=== PATIENT | male | born 1945 | race Caucasian/White ===

== ENCOUNTER → 2018-08-03 | Outpatient (CLI) | payer MEDICARE ==
[2014-08-11 15:14] VITALS: BP 138/67
[~2018-08-03] MED LIST: CIPR500T94 PO; DICY20TA3 PO; MESA800T2 PO
--- NOTE | 2018-08-03 16:02 | RAD ---
EXAM: CHEST 2 VIEWS. HISTORY: Cough, shortness of breath. COMPARISON: None. FINDINGS: Frontal and lateral views of the chest are obtained. Linear opacities in the left base most likely indicate atelectasis. There is no pneumothorax or pleural effusion. The heart is mildly enlarged. The aorta is tortuous. IMPRESSION: 1. Left basilar atelectasis versus mild infiltrate. 2. Mild cardiomegaly. Electronically signed by: Sherly Flores MD (08/03/2018 3:59 PM) [facility]
== END | disposition home or self-care (01) ==
LOC: RAD 10:08
PROVIDERS: ATTEND Internal Medicine Pulmonary Disease
DX: I51.7 Cardiomegaly (principal); J98.11 Atelectasis
CPT/HCPCS: 71046

== ENCOUNTER 2018-09-11 08:20 | Outpatient (CLI) | payer MEDICARE ==
[2018-09-11] VITALS (13 sets, daily range): BP systolic 117–150; BP diastolic 61–80
[~2018-09-11] VITALS: Ht 172.7 cm; Wt 98.0 kg
[2018-09-11] MEDS ORDERED: MIDAZOLAM HCL/PF 2 MG/2 ML VIAL. ONE (08:50)
[2018-09-11] MEDS ORDERED: fentaNYL PF VIAL 100 MCG/2 ML VIAL ONE (08:50)
[2018-09-11] MEDS ORDERED: NITROGLYCERIN 200 MCG/2 ML SYRINGE FOR CATH/VASC LAB. ONE (08:51)
[2018-09-11] MEDS ORDERED: VERAPAMIL 5 MG/2 ML VIAL. ONE (08:51)
[2018-09-11] MEDS ORDERED: HEPARIN for IV BOLUS 10,000 UNIT/10 ML VIAL. ONE (08:51)
[2018-09-11] MEDS ORDERED: ZOLP10TA4 PO (08:53)
[2018-09-11] MEDS ORDERED: LISI10TA2 PO (08:53)
[2018-09-11] MEDS ORDERED: IODIXANOL 320 MG/ML 100 ML VIAL. ONE (08:55)
[2018-09-11] MEDS ORDERED: LIDOCAINE 1% PF 2 ML VIAL. ONE (08:55)
[2018-09-11 09:00] LABS: HEMOGLOBIN 15.5 g/dL (13.0-17.5); RED BLOOD COUNT 5.09 x10^6/uL (4.30-5.70); WHITE BLOOD COUNT 4.4 x10^3/uL (4.0-11.0)
[2018-09-11 09:12] LABS: CREATININE 1.2 mg/dL (0.7-1.3); GFR 59.2; POTASSIUM 4.7 mmol/L (3.5-5.1)
[2018-09-11 09:15] LABS: PROTHROMBIN TIME PATIENT 12.5 SEC (11.7-14.0)
[2018-09-11] MEDS ORDERED: IODIXANOL 320 MG/ML 100 ML VIAL. IART ONE (10:15)
[2018-09-11] MEDS ORDERED: HEPARIN for IV BOLUS 10,000 UNIT/10 ML VIAL. IART ONE (10:15)
[2018-09-11] MEDS ORDERED: NITROGLYCERIN 200 MCG/2 ML SYRINGE FOR CATH/VASC LAB. IART ONE (10:15)
[2018-09-11] MEDS ORDERED: fentaNYL PF VIAL 100 MCG/2 ML VIAL IV ONE (10:15)
[2018-09-11] MEDS ORDERED: LIDOCAINE 1% PF 2 ML VIAL. INJ ONE (10:15)
[2018-09-11] MEDS ORDERED: VERAPAMIL 5 MG/2 ML VIAL. IART ONE (10:15)
[2018-09-11] MEDS ORDERED: MIDAZOLAM HCL/PF 2 MG/2 ML VIAL. IV ONE (10:15)
[2018-09-11] MEDS ORDERED: IV NORMAL SALINE 250ML 250 ML IV ONE (10:15)
[2018-09-11] MEDS ORDERED: CONTRAST GIVEN. MC PRN (10:30)
[2018-09-11] MEDS ORDERED: IV 1/2 NORMAL SALINE 1,000 ML IV SCH (10:55)
--- NOTE | 2018-09-11 10:55 | PDOC ---
MODERATE SEDATION ASSESSMENT RISKS/ALTERNATIVES Risks/Alternatives Risks and alternatives of this type of sedation and procedure discussed with: RISK/ALTERNATIVES: Patient H & P ON CHART H & P H & P on chart and reviewed for co-morbid conditions and appropriate labs. H&P ON CHART: Yes STATUS PREG STATUS ASSESSED: N/A MEDS/ALLERGIES REVIEWED Meds/Allergies Reviewed Medications and Allergies including time and route of recently administered narcotics and sedatives. MEDS/ALLERGIES REVIEWED: Yes ASA RATING ASA RATING: II AIRWAY ASSESSMENT Airway Assessment Airway patency, oral function limitations, presence of caps, crowns, dentures, partials, and ability to extend neck assessed. AIRWAY ASSESSMENT: Yes MALLAMPATI SCORE MALLAMPATI SCORE: II PRE-SEDATION ASSESSMENT PRE-SEDATION ASSESSMENT: Yes SANDRA GARCIA MD Sep 11, 2018 10:55
[2018-09-11] MEDS ORDERED: 0.9 % SODIUM CHLORIDE 10 ML DISP.SYRIN. IV PRN (11:00)
[2018-09-11] MEDS ORDERED: NITROGLYCERIN SUBLINGUAL 0.4 MG BOTTLE OF 25. SL PRN (11:00)
--- NOTE | 2018-09-11 11:01 | CARD ---
MR#: [id number] Date of Study: 09/11/2018 Ordering Physician: SANDRA GARCIA Referring Physician: SANDRA GARCIA Tech: RT Wenceslao (R) APPROVED REPORT Technologist: Rashmi Vaughan RT (R) Nurse: MADHAVI DIXON RN Procedure(s) performed: Left heart catheterization, selective coronary angiography and left ventricul ography via right transradial approach Fluoro time: 9.4 minutes Dose: 99 Gycm2 Contrast: 111cc Moderate sedation: 42 minutes INDICATION The indication(s) include : Dyspnea on exertion and positive stress test. [facility] Clinical Frailty Scale [facility] Clinical Frailty Scale: Managing Well Heart Failure Heart Failure: No PROCEDURE NARRATIVE After explaining the risks, benefits and alternative options, informed consent was obtained from alexsander ent. Patient was brought to the cardiac Residential Support Worker and right wrist was prepped and draped in the usual fashion after confirming a positive modified Hilton's test. Arterial access was obtained in the [facility] radial artery and a 6 Welsh sheath was inserted. 6 Welsh JL 3.5 and 6 Welsh JR4 catheters were used to perform selective angiography of the left and right coronary arteries after initial attempts to engage these vessels using Alireza catheter were unsuccessful. 6 Welsh pigtail catheter was used to perform left ventriculography. Patient tolerated the procedure well. Hemostasis was achieved usi ng TR band. There were no immediate complications. The following findings were noted. FINDINGS 1. Hemodynamics: Left ventricular end-diastolic pressure of 5 mmHg. No pullback gradient across the aortic valve. 2. Left ventriculography: Normal left ventricle systolic function with ejection fraction estimated at 55-60%. No significant mitral regurgitation seen. 3. Coronary angiography: a. The left main coronary artery arose from the left sinus of Valsalva, gave rise to the left anteri or descending and left circumflex arteries and showed 30% ostial segment stenosis and 70-80% distal s egment stenosis. b. The left anterior descending artery showed patent stent in the proximal segment of the second case gonal branch. No significant stenoses were noted. c. The left circumflex artery showed 80% stenosis in the ostial segment and 70% stenosis in the prox imal segment of the first obtuse marginal branch. d. The right coronary artery was a dominant vessel arising from the right sinus of Valsalva that zaria wed 60% stenosis in the distal segment. The posterolateral branch showed 90% stenosis in the midsegme nt. The posterior descending artery showed 40% stenosis in the proximal segment. Conclusion 1. Severe three-vessel coronary artery disease including significant left main coronary artery steno sis as described above 2. Normal left ventricle systolic function with ejection fraction estimated at 55-60% Recommendations Cardiothoracic surgery team consultation for possible coronary artery bypass surgery Signed by : Sandra Garcia, Electronically Approved : 09/11/2018 11:00:59
--- NOTE | 2018-09-11 13:52 | CARD ---
MR#: [id number] Date of Study: 09/11/2018 Ordering Physician: SANDRA GARCIA, Referring Physician: SANDRA GARCIA Tech: Cat Henley RAE APPROVED REPORT EXAM: Two-dimensional and M-mode echocardiogram with Doppler and color Doppler. Other Information Quality : AverageHR: 62bpm Rhythm : NSRTechnically limited study due to body habitus. INDICATION CAD 2D DIMENSIONS RVDd3.7 (2.9-3.5cm)IVSd1.2 (0.7-1.1cm) Aortic Root(2D)3.9 (2.0-3.7cm)LVDd5.2 (3.9-5.9cm) LVOT Diameter2.2 (1.8-2.4cm)PWd1.0 (0.7-1.1cm) LVDs2.8 (2.5-4.0cm)FS (%) 46.8 % SV100.5 mlLVEF(%)77.9 (>50%) M-Mode DIMENSIONS Left Atrium(MM)5.08 (2.5-4.0cm)Aortic Root3.75 (2.2-3.7cm) Aortic Valve AoV Peak Oscar.197.4cm/sAoV VTI37.4cm AO Peak GR.15.6mmHgLVOT VTI 23.48cm AO Mean GR.8mmHgAVA (VTI)2.40cm2 AI P 1/2 Ufel081th Mitral Valve MV E Knlpotjz09.3cm/sMV DECEL RRXY330mb MV A Hxsgefkb134.5cm/sE/A Ratio0.6 MV A Roqqoapt368qg TDI Lateral E' P. V15.90cm/sMedial E' P. V8.04cm/s E/Lateral E'4.7E/Medial E'9.2 Tricuspid Valve TR P. Hvhqmihh754ev/sRAP TXCRJCRV7zyYz TR Peak Gr.00aoIjTQWR65yhBu LEFT VENTRICLE The left ventricle is normal size. There is mild concentric left ventricular hypertrophy. The left ve ntricular systolic function is low normal. EF 50-55% There is grossly normal wall motion. Technically limited images Transmitral Doppler flow pattern is abnormal. Tissue Doppler imaging reveals mild lef t ventricular diastolic dysfunction. RIGHT VENTRICLE The right ventricle is normal size. There is normal right ventricular wall thickness. The right ventr icular systolic function is normal. ATRIA The left atrium is moderately dilated. The right atrium is mildly dilated. The interatrial septum is intact with no evidence for an atrial septal defect or patent foramen ovale as noted on 2-D or Dopple r imaging. AORTIC VALVE Not well visualized. Doppler and Color Flow revealed moderate aortic regurgitation. There is no signi ficant aortic valvular stenosis. MITRAL VALVE The mitral valve is normal in structure and function. There is no evidence of mitral valve prolapse. There is no mitral valve stenosis. Doppler and Color-flow revealed trace mitral regurgitation. TRICUSPID VALVE The tricuspid valve is normal in structure and function. Doppler and Color Flow revealed trace tricus pid regurgitation. The PA pressure was estimated at 30 mmHg. There is no tricuspid valve prolapse or vegetation. PULMONIC VALVE The pulmonic valve is not well visualized. GREAT VESSELS The aortic root is mildly enlarged. The ascending aorta is normal in size. The IVC is normal in size and collapses >50% with inspiration. PERICARDIAL EFFUSION There is no evidence of significant pericardial effusion. Critical Notification Critical Value: No <Conclusion> There is grossly normal wall motion. Technically limited images Doppler and Color Flow revealed moderate aortic regurgitation. The left ventricular systolic function is low normal. EF 50-55% Signed by : Francisco Burger, Electronically Approved : 09/11/2018 13:51:57
--- NOTE | 2018-09-11 13:53 | NUR ---
Discharge Note: RENALDO HANLEY Discharge instructions and discharge home medications reviewed with Spouse and a copy given. All questions have been answered and understanding verbalized. The following instructions and handouts were given: Moderate sedation and radial site care. Discontinued lines and drains: Left AC, dressing clean dry intact. Patient discharged to home with . Patient refused to eat lunch, patient tolerated po fluids well with no issues. Patient completed Echo while in recovery and patient taken to Dr. Scott office after recovery for CABG consult in wheelchair with at side.
== END 2018-09-11 13:50 | disposition home or self-care (01) ==
LOC: ECHO 08:20
PROVIDERS: ATTEND Internal Medicine Cardiovascular Disease
DX: I35.1 Nonrheumatic aortic (valve) insufficiency (principal); I51.7 Cardiomegaly; I25.10 Atherosclerotic heart disease of native coronary artery without angina pectoris; I77.89 Other specified disorders of arteries and arterioles
CPT/HCPCS: 36415; 80048; 85027; 85610; 93306; 93458; C1769; C1892; J1644; J2250; J3010; J3490; J7050; Q9967; 99152; 99153; J7030

== ENCOUNTER → 2018-09-18 | Outpatient (CLI) | payer MEDICARE ==
[2018-09-11 13:40] VITALS: BP 127/66
[~2018-09-18] MED LIST changes: +ATOR40TA59 PO; +LISI10TA2 PO; +ZOLP10TA4 PO
--- NOTE | 2018-09-18 13:49 | EKG ---
[facility] [address] [place] [address] Test Date: 2018-09-18 Test Time: 13:51:37 Pat Name: RENALDO HANLEY Department: Room: Gender: [employer]er: : 1945 Requested By: RANJAN FONTAINE Order Number: [id number] Reading MD: Francisco Burger MD Measurements Intervals [place] Rate: 55 P: 42 NH: 150 QRS: -24 QRSD: 86 T: 0 QT: 392 QTc: 377 Interpretive Statements SINUS RHYTHM LAD NON-SPECIFIC ST/T CHANGES Electronically Signed On 09-22-2018 8:49:29 CDT by Francisco Burger MD
[2018-09-18 14:16] LABS: BASO % 1 % (0-3); EOS # 0.1 x10^3/uL (0.0-0.7); EOS % 3 % (0-3); HEMATOCRIT 40.1 % (39.0-53.0); HEMOGLOBIN 13.5 g/dL (13.0-17.5); LYMPH # 0.8 x10^3/uL (1.0-4.8); LYMPH % 21 % (24-48); MEAN CORPUSCULAR HEMOGLOBIN 31 pg (25-35); MEAN CORPUSCULAR HGB CONC 34 g/dL (31-37); MEAN CORPUSCULAR VOLUME 91 fL (79-100); MONO # 0.4 x10^3/uL (0.0-1.1); MONO % 10 % (0-9); NEUT # 2.5 x10^3/uL (1.8-7.7); NEUT % 66 % (31-73); PLATELET COUNT 194 x10^3/uL (140-400); RED BLOOD COUNT 4.42 x10^6/uL (4.30-5.70); RED CELL DISTRIBUTION WIDTH 14.6 % (11.5-14.5); WHITE BLOOD COUNT 3.8 x10^3/uL (4.0-11.0)
[2018-09-18 14:26] LABS: PROTHROMBIN TIME PATIENT 12.8 SEC (11.7-14.0)
[2018-09-18 14:30] LABS: ALBUMIN 3.1 g/dL (3.4-5.0); ALBUMIN/GLOBULIN RATIO 0.9 (1.0-1.7); CALCIUM 8.5 mg/dL (8.5-10.1); CREATININE 1.3 mg/dL (0.7-1.3); TOTAL BILIRUBIN 0.3 mg/dL (0.2-1.0); TOTAL PROTEIN 6.6 g/dL (6.4-8.2)
--- NOTE | 2018-09-18 15:29 | RAD ---
Chest radiograph 09/18/2018 12:42 PM INDICATION: Preoperative for CABG COMPARISON: August 03, 2018 TECHNIQUE: Frontal and lateral views of the chest are provided. FINDINGS: The cardiomediastinal silhouette is borderline enlarged. There are no pleural effusions. There is no pulmonary vascular congestion. There is no pneumothorax. The lungs are clear. No significant osseous abnormality is identified. IMPRESSION: Borderline cardiomegaly. No acute cardiopulmonary process. Electronically signed by: Nadia Santa MD (09/18/2018 3:26 PM) [id number]
[2018-09-19 00:07] LABS: HEMOGLOBIN A1C 6.1 % (4.8-5.6)
--- NOTE | 2018-09-28 10:05 | NUR ---
FAXED PRE - OP LABS,MRSA REPORTS 09/21/2018 AT 1251 TO OFFICE AND RECEIVED TRANSMITTAL CONFIRMATION. FAXED CAROTID US,VEIN MAP, CT OF CHEST REPORTS TO GOPI FONTAINE OFFICE AT 1321 09/22/2018 AND RECEIVED TRANSMITTAL CONFIRMATION AND ALSO CALLED OFFICE NURSE MARIE MAGUIRE. PATIENT CALLED AT AROUND 0950 09/28/2018 AND REQUESTING IF HE CAN HAVE HIS BLOOD DRAWN FOR TYPE & CROSS DONE TOMORROW, DAY OF SURGERY BECAUSE [place]ES [address]. CALLED AND HE SAID IT'S OKAY TO DO TYPE & CROSS DAY OF SURGERY.
== END | disposition home or self-care (01) ==
LOC: SURGPAT 12:40
PROVIDERS: ATTEND Thoracic Surgery (Cardiothoracic Vascular Surgery)
DX: Z01.818 Encounter for other preprocedural examination (principal); I25.10 Atherosclerotic heart disease of native coronary artery without angina pectoris; I51.7 Cardiomegaly
CPT/HCPCS: 36415; 71046; 80053; 83036; 85025; 85610; 85730; 87641; 93005

== ENCOUNTER → 2018-09-22 | Outpatient (CLI) | payer MEDICARE ==
[2018-09-11 13:40] VITALS: BP 127/66
--- NOTE | 2018-09-22 11:30 | RAD ---
MR#: [id number] Date of Study: 09/22/2018 Ordering Physician: RANJAN FONTAINE, Referring Physician: RANJAN FONTAINE, Tech: Randall Salvador MBA, RDMS, RVT, RDCS, RTR APPROVED REPORT Patient Location: OUT-PATIENT Laterality:Bilateral Indications pre-op Doppler Spectral Velocity Analysis Right Left pCCA 96/10 cm/spCCA 113/13 cm/s mCCA 97/13 cm/smCCA 93/12 cm/s dCCA 89/10 cm/sdCCA 100/13 cm/s Bulb 84/12 cm/sBulb 75/10 cm/s ECA 141/ cm/sECA 98/ cm/s pICA 86/17 cm/spICA 78/10 cm/s Irineo 88/13 cm/smICA 61/14 cm/s dICA 85/20 cm/sdICA 65/15 cm/s Vert. 37/ cm/sVert. 48/ cm/s Subcl. 166/ cm/sSubcl. 113/ cm/s ICA/CCA 0.91ICA/CCA 0.69 Findings Grayscale images of the bilateral carotid vessels demonstrates mild diffuse disease without any obvio us focal obstruction. Spectral waveforms and color Doppler are within normal limits involving the bilateral proximal, mid a nd distal internal carotid arteries. Normal vertebral velocities are noted bilaterally. Normal subclavian velocities bilaterally. Normal ICA to CCA ratios bilaterally. Critical Notification Critical Value: No <Conclusion> 1. No significant carotid occlusive disease bilaterally. Signed by : Francisco Burger, Electronically Approved : 09/22/2018 11:30:23
--- NOTE | 2018-09-22 11:32 | RAD ---
MR#: [id number] Date of Study: 09/22/2018 Ordering Physician: RANJAN FONTAINE, Referring Physician: RANJAN FONTAINE, Tech: Randall Salvador MBA, RDMS, RVT, RDCS, RTR APPROVED REPORT Patient Location: OUT-PATIENT Indications pre-op cabg Vein Measurements Great Saphenous Small Saphenous RightLeft RightLeft Saph-Fem. Junction 5.70mm6.40mmProximal 1.30mm1.90mm Mid Thigh 2.70mm3.90mmMid 1.50mm2.50mm Distal Thigh 4.40mm3.00mmDistal 2.00mm2.80mm Proximal Calf 3.00mm2.50mm Mid Calf 2.20mm2.80mm Distal Calf 2.90mm2.60mm Findings Normal appearance of the bilateral greater and lesser saphenous veins with dimensions as noted above. No obvious thrombus noted in the bilateral greater and lesser saphenous veins were normal color Doppl er flow noted. Critical Notification Critical Value: No <Conclusion> 1. Adequate bypass conduit as described above in the greater and lesser saphenous veins. Signed by : Francisco Burger, Electronically Approved : 09/22/2018 11:31:51
--- NOTE | 2018-09-22 12:57 | RAD ---
EXAM: CT Chest without IV contrast CLINICAL HISTORY: Preop-CABG COMPARISON: None. TECHNIQUE: CT of the chest without intravenous contrast. Axial, coronal and sagittal reformatted images were generated. ---PQRS compliance statement - One or more of the following individualized dose reduction techniques were utilized for this study: 1. Automated exposure control 2. Adjustment of the mA and/or kV according to patient size 3. Use of iterative reconstruction technique--- FINDINGS: Lack of intravenous contrast limits evaluation of solid organs, vasculature, and lymph nodes. Chest: Heart is mildly enlarged. Coronary artery calcification is seen. No pleural effusion or pneumothorax. A few mildly prominent mediastinal lymph nodes are seen, for example a subcarinal lymph node measures up to 1.2 cm in short axis. Central airways are grossly patent. Left lower lobe calcified granuloma is seen. Linear wedge-shaped and minimal patchy groundglass opacities in lower lobes and dependent lungs likely scarring/atelectasis. No lobar consolidation. Small hiatal hernia. Visualized Upper abdomen: Right kidney is not seen within limited visualized portion of the upper abdomen. Duodenal diverticulum is seen. Small hiatal hernia. Moderate colonic stool content. Bones: Degenerative changes of the spine are seen. IMPRESSION: 1. No suspicious lung nodule or mass is seen. 2. Dependent opacities, likely atelectasis/scarring. No lobar consolidation. 3. Coronary artery calcifications are seen. 4. A few prominent mediastinal lymph nodes, nonspecific may be physiologic or reactive. Electronically signed by: Anthony Hogan MD (09/22/2018 12:54 PM) [facility]
== END | disposition home or self-care (01) ==
LOC: US 08:43
PROVIDERS: ATTEND Thoracic Surgery (Cardiothoracic Vascular Surgery)
DX: Z01.818 Encounter for other preprocedural examination (principal); I25.10 Atherosclerotic heart disease of native coronary artery without angina pectoris; I51.7 Cardiomegaly; J84.10 Pulmonary fibrosis, unspecified; R91.8 Other nonspecific abnormal finding of lung field; K44.9 Diaphragmatic hernia without obstruction or gangrene; K57.10 Diverticulosis of small intestine without perforation or abscess without bleeding
CPT/HCPCS: 71250; 93880; 93970

== ENCOUNTER 2018-09-24 07:30 | Inpatient (IN) | payer MEDICARE, OTHER ==
[~2018-09-24] VITALS: Ht 172.7 cm; Wt 103.4 kg
[2018-09-29] MEDS ORDERED: PAPAVERINE 60 MG/2 ML VIAL FOR OR ONLY. ONE (05:54)
[2018-09-29] MEDS ORDERED: 0.9 % SODIUM CHLORIDE 20 ML VIAL. IJ ONE ×3 (05:54→05:56)
[2018-09-29] MEDS ORDERED: VANCOMYCIN 10GM VIAL for OR. ONE (05:54)
[2018-09-29] MEDS ORDERED: SURGICEL HEMOSTAT 4X8 EACH. ONE (05:54)
[2018-09-29] MEDS ORDERED: POTASSIUM CHLORIDE 15 MEQ, SODIUM BICARBONATE VIAL 12.5 MEQ in IV ELECTROLYTE-S (PH 7.4... IRR ONE (06:00)
[2018-09-29] MEDS ORDERED: POTASSIUM CHLORIDE 70 MEQ, SODIUM BICARBONATE VIAL 12.5 MEQ, LIDOCAINE 2% 24 ML in IV E... IRR ONE (06:00)
[2018-09-29] MEDS ORDERED: INSULIN REGULAR VIAL 150 UNIT in 0.9 % SODIUM CHLORIDE 150ML 150 ML IV PRN ×3 (06:00→15:15)
[2018-09-29] MEDS ORDERED: ceFAZolin 2GM PREMIX 2 GM/50 ML BAG IV ONE (06:00)
[2018-09-29] MEDS ORDERED: HEPARIN PRESERVATIVE FREE 800 UNIT, NITROGLYCERIN 4 MG, VERAPAMIL 8 MG, SODIUM BICARBON... IRR ONE ×5 (06:00)
[2018-09-29] MEDS ORDERED: HEPARIN 20,000 UNIT in IV RINGERS,LACTATED 1000ML 1,000 ML IRR ONE (06:00)
[2018-09-29] MEDS ORDERED: HEPARIN 30,000 UNIT/30 ML VIAL. ONE ×2 (06:24→13:45)
[2018-09-29] MEDS ORDERED: LIDOCAINE 2% PF 5 ML VIAL. ONE ×3 (06:24→13:45)
[2018-09-29] MEDS ORDERED: AMINOCAPROIC ACID 5,000 MG/20 ML VIAL. IV ONE ×2 (06:24→11:37)
[2018-09-29] MEDS ORDERED: ePHEDrine PF IN SALINE 50 MG/10 ML SYRINGE. IV ONE (06:24)
[2018-09-29] MEDS ORDERED: NITROGLYCERIN PREMIX 250 ML IV ONE (06:24)
[2018-09-29] MEDS ORDERED: PHENYLEPHRINE 10 MG/ML VIAL. ONE (06:24)
[2018-09-29] MEDS ORDERED: ETOMIDATE 20 MG/10 ML VIAL. IV ONE (06:24)
[2018-09-29] MEDS ORDERED: ROCURONIUM 100 MG/10 ML VIAL. ONE ×2 (06:25→08:05)
[2018-09-29] MEDS ORDERED: SUFentanil 250 MCG/5 ML AMPUL. ONE (06:26)
[2018-09-29] MEDS ORDERED: MIDAZOLAM HCL/PF 2 MG/2 ML VIAL. ONE (06:27)
[2018-09-29] MEDS ORDERED: LIDOCAINE 1% PF 2 ML VIAL. ID PRN (07:00)
[2018-09-29] MEDS ORDERED: HYDROmorphone 2 MG/ML VIAL IV PRN (07:00)
[2018-09-29] MEDS ORDERED: fentaNYL PF VIAL 100 MCG/2 ML VIAL IV PRN ×2 (07:00)
[2018-09-29] MEDS ORDERED: PROCHLORPERAZINE 10 MG/2 ML VIAL. IV PRN ×2 (07:00→15:15)
[2018-09-29] MEDS ORDERED: MORPHINE SULFATE 2 MG/ML VIAL. IV PRN (07:00)
[2018-09-29] MEDS ORDERED: ONDANSETRON PF 4 MG/2 ML VIAL. IV PRN (07:00)
[2018-09-29] MEDS ORDERED: IV RINGERS,LACTATED 1000ML 1,000 ML IV SCH (07:00)
[2018-09-29] MEDS ORDERED: fentaNYL PF VIAL 100 MCG/2 ML VIAL ONE (07:05)
[2018-09-29] MEDS ORDERED: HEPARIN for IV BOLUS 10,000 UNIT/10 ML VIAL. ONE ×2 (07:27→13:45)
--- NOTE | 2018-09-29 08:06 | PDOC1 ---
History and Physical Date of Admission Date of Admission DATE: 09/29/18 TIME: 07:50 Identification/Chief Complaint Chief Complaint Angina Source Source: Chart review, Patient History of Present Illness History of Present Illness The patient is a 73-year-old male with a history of PCI to the diagonal approximately 15 years ago, who presented to his primary care physician with stable angina. He went on to have a positive stress test and then a subsequent coronary angiogram which showed a distal 70-80% left main and stem stenosis, a patent diagonal stent, a proximal 80% stenosis in the left circumflex with an ostial 70% in the first OM, 60% to distal RCA lesion and a 90% stenosis in the midsegment of a right posterolateral branch. An echo showed preserved LV function with moderate aortic regurgitation. 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 He is here today for elective surgical coronary revascularization. Past Medical History Cardiovascular: HTN Pulmonary: No pertinent hx GI: No pertinent hx Heme/Onc: No pertinent hx, Cancer Hepatobiliary: No pertinent hx Psych: No pertinent hx Rheumatologic: No pertinent hx Infectious disease: No pertinent hx ENT: No pertinent hx Renal/: Chronic renal failure, Prostate Ca., Renal Ca. Endocrine: No pertinent hx Dermatology: No pertinent hx Past Surgical History Past Surgical History: Other (PCI to diagonal, nepherectomy, prostatectomy) Family History Family History: Cancer Social History Smoke: No ALCOHOL: rare Drugs: None Current Medications Current Medications Current Medications Cefazolin Sodium 1 gm/Sodium Chloride 500 ml @ 500 mls/hr 1X ONCE IRR ; Start 09/29/18 at 06:00; Stop 09/29/18 at 07:00; Status DC Potassium Chloride 70 meq/ Sodium Bicarbonate 12.5 meq/Lidocaine HCl 24 ml/Parenteral Electrolytes 571.5 ml @ 571.5 mls/ hr 1X ONCE IRR ; Start 09/29/18 at 06:00; Stop 09/29/18 at 07:00; Status DC Potassium Chloride 15 meq/ Sodium Bicarbonate 12.5 meq/Parenteral Electrolytes 520 ml @ 520 mls/hr 1X ONCE IRR ; Start 09/29/18 at 06:00; Stop 09/29/18 at 07:00; Status DC Heparin Sodium (Porcine) 31716 unit/Ringer's Solution 1,020 ml @ 1,020 mls/hr 1X ONCE IRR ; Start 09/29/18 at 06:00; Stop 09/29/18 at 07:00; Status DC Ondansetron HCl (Zofran) 4 mg PRN Q6HRS PRN IV NAUSEA/VOMITING; Start 09/29/18 at 07:00; Stop 09/30/18 at 06:59 Fentanyl Citrate (Fentanyl 2ml Vial) 25 mcg PRN Q5MIN PRN IV MILD PAIN 1-3; Start 09/29/18 at 07:00; Stop 09/30/18 at 06:59 Fentanyl Citrate (Fentanyl 2ml Vial) 50 mcg PRN Q5MIN PRN IV MODERATE TO SEVERE PAIN; Start 09/29/18 at 07:00; Stop 09/30/18 at 06:59 Morphine Sulfate (Morphine Sulfate) 1 mg PRN Q10MIN PRN IV SEVERE PAIN 7-10; Start 09/29/18 at 07:00; Stop 09/30/18 at 06:59 Ringer's Solution 1,000 ml @ 30 mls/hr Q24H IV ; Start 09/29/18 at 07:00; Stop 09/29/18 at 18:59 Lidocaine HCl (Xylocaine-Mpf 1% 2ml Vial) 2 ml PRN 1X PRN ID PRIOR TO IV START; Start 09/29/18 at 07:00; Stop 09/30/18 at 06:59 Hydromorphone HCl (Dilaudid) 0.5 mg PRN Q10MIN PRN IV SEV PAIN, Second choice; Start 09/29/18 at 07:00; Stop 09/30/18 at 06:59 Prochlorperazine Edisylate (Compazine) 5 mg PACU PRN PRN IV NAUSEA, MRX1; St art 09/29/18 at 07:00; Stop 09/30/18 at 06:59 Cefazolin Sodium/ Dextrose 50 ml @ 100 mls/hr 1X PREOP PRN IV PRIOR TO PROCEDURE; Start 09/29/18 at 06:00; Stop 09/29/18 at 18:00 Insulin Human Regular 150 unit/ Sodium Chloride 151.5 ml @ 0 mls/hr CONT PRN IV SEE I/O RECORD; Start 09/29/18 at 06:00 Heparin Sodium (Porcine) 800 unit/ Nitroglycerin 4 mg/Verapamil HCl 8 mg/Sodium Bicarbonate 0.34 meq/Ringer's Solution 512.34 ml @ 512.34 mls/hr 1X ONCE IRR ; Start 09/29/18 at 06:00; Stop 09/29/18 at 07:00; Status DC Etomidate (Amidate) 20 mg STK-MED ONCE IV ; Start 09/29/18 at 06:24; Stop 09/29/18 at 06:25; Status DC Lidocaine HCl (Lidocaine Pf 2% Vial) 5 ml STK-MED ONCE .ROUTE ; Start 09/29/18 at 06:24; Stop 09/29/18 at 06:25; Status DC Heparin Sodium (Porcine) 30,000 unit STK-MED ONCE .ROUTE ; Start 09/29/18 at 06:24; Stop 09/29/18 at 06:25; Status DC Aminocaproic Acid (Amicar) 5,000 mg STK-MED ONCE IV ; Start 09/29/18 at 06:24; Stop 09/29/18 at 06:25; Status DC Phenylephrine HCl (Clarence-Synephrine Inj) 10 mg STK-MED ONCE .ROUTE ; Start 09/29/18 at 06:24; Stop 09/29/18 at 06:25; Status DC Ephedrine Sulfate (ePHEDrine PF IN SALINE SYRINGE) 50 mg STK-MED ONCE IV ; Start 09/29/18 at 06:24; Stop 09/29/18 at 06:25; Status DC Nitroglycerin/ Dextrose 250 ml @ As Directed STK-MED ONCE IV ; Start 09/29/18 at 06:24; Stop 09/29/18 at 06:25; Status DC Rocuronium Shiro (Zemuron) 100 mg STK-MED ONCE .ROUTE ; Start 09/29/18 at 06:25; Stop 09/29/18 at 06:26; Status DC Sufentanil Citrate (Sufenta) 250 mcg STK-MED ONCE .ROUTE ; Start 09/29/18 at 06:26; Stop 09/29/18 at 06:27; Status DC Midazolam HCl (Versed) 2 mg STK-MED ONCE .ROUTE ; Start 09/29/18 at 06:27; Stop 09/29/18 at 06:28; Status DC Vancomycin HCl (VANCO for OR ONLY) 10 gm STK-MED ONCE .ROUTE ; Start 09/29/18 at 05:54; Stop 09/29/18 at 06:54; Status DC Cellulose (Surgicel Hemostat 4x8) 1 each STK-MED ONCE .ROUTE ; Start 09/29/18 at 05:54; Stop 09/29/18 at 06:54; Status DC Papaverine HCl 60 mg STK-MED ONCE .ROUTE ; Start 09/29/18 at 05:54; Stop 09/29/18 at 06:54; Status DC Sodium Chloride (SODIUM CHLORIDE 20ml) 20 ml STK-MED ONCE IJ ; Start 09/29/18 at 05:54; Stop 09/29/18 at 06:54; Status DC Aspirin (Aspirin Rectal Supp) 300 mg ONCE AK ; Start 09/29/18 at 07:00 Sodium Chloride (SODIUM CHLORIDE 20ml) 20 ml STK-MED ONCE IJ ; Start 09/29/18 at 05:56; Stop 09/29/18 at 06:56; Status DC Sodium Chloride (SODIUM CHLORIDE 20ml) 20 ml STK-MED ONCE IJ ; Start 09/29/18 at 05:56; Stop 09/29/18 at 06:56; Status DC Fentanyl Citrate (Fentanyl 2ml Vial) 100 mcg STK-MED ONCE .ROUTE ; Start 09/29/18 at 07:05; Stop 09/29/18 at 07:06; Status DC Heparin Sodium (Porcine) (Heparin Sodium) 10,000 unit STK-MED ONCE .ROUTE ; Start 09/29/18 at 07:27; Stop 09/29/18 at 07:28; Status DC Active Scripts Active Reported Atorvastatin Calcium 40 Mg Tablet 1 Tab PO DAILY Lisinopril 10 Mg Tablet 1 Tab PO DAILY Zolpidem Tartrate 10 Mg Tablet 5 Mg PO PRN QHS PRN Allergies Allergies: Coded Allergies: No Known Drug Allergies (Unverified , 08/11/14) ROS General: No: Chills, Night Sweats, Fatigue, Malaise, Appetite PSYCHOLOGICAL ROS: No: Anxiety, Behavioral Disorder, Concentration difficultie, Decreased libido, Depression, Disorientation, Hallucinations, Hostility, Irritablity, Memory difficulties, Mood Swings, Obsessive thoughts, Physical abuse, Sexual abuse, Sleep disturbances, Suicidal ideation Eyes: No Blurry vision, No Decreased vision, No Double vision, No Dry eyes, No Excessive tearing, No Eye Pain, No Itchy Eyes, No Loss of vision, No Photophobia, No Scotomata, No Uses contacts, No Uses glasses HEENT: No: Heacaches, Visual Changes, Hearing change, Nasal congestion, Nasal discharge, Oral lesions, Sinus pain, Sore Throat, Epistaxis, Sneezing, Snoring, Tinnitus, Vertigo, Vocal changes ALLERGY AND IMMUNOLOGY: No: Hives, Insect Bite Sensitivity, Itchy/Watery Eyes, Nasal Congestion, Post Nasal Drip, Seasonal Allergies, Other Hematological and Lymphatic: No: Bleeding Problems, Blood Clots, Blood Transfusions, Brusing, Night Sweats, Pallor, Swollen Lymph Nodes ENDOCRINE: No: Breast Changes, Galactorrhea, Hair Pattern Changes, Hot Flashes, Malaise/lethargy, Mood Swings, Palpitations, Polydipsia/polyuria, Skin Changes, Temperature Intolerance, Unexpected Weight Changes Respiratory: No: Cough, Hemoptysis, Orthopnea, Pleuritic Pain, Shortness of breath, SOB with excertion, Sputum Changes, Stridor, Tachypnea, Wheezing Cardiovascular: yes Chest Pain; No Palpitations, No Orthopnea, No Paroxysmal Noc. Dyspnea, No Edema, No Lt Headedness Gastrointestinal: No Nausea, No Vomiting, No Abdominal Pain, No Diarrhea, No Constipation, No Melena, No Hematochezia Genitourinary: No Dysuria, No Frequency, No Incontinence, No Hematuria, No Retention, No Discharge, No Urgency, No Pain, No Flank Pain Musculoskeletal: No Gait Disturbance, No Joint Pain, No Joint Stiffness, No Joint Swelling, No Muscle Pain, No Muscular Weakness, No Pain In:, No Swelling In: Neurological: No Behavorial Changes, No Bowel/Bladder ControlChng, No Confusion, No Dizziness, No Gait Disturbance, No Headaches, No Impaired Coord/balance, No Memory Loss, No Numbness/Tingling, No Seizures, No Speech Problems, No Tremors, No Visual Changes, No Weakness Skin: No Dry Skin, No Eczema, No Hair Changes, No Lumps, No Mole Changes, No Mottling, No Nail Changes, No Pruritus, No Rash, No Skin Lesion Changes, No Acne Physical Exam General: Alert, Oriented X3, No acute distress HEENT: Atraumatic, PERRLA Lungs: Clear to auscultation Heart: S1S2, RRR, no thrills, no murmurs Abdomen: Soft, No tenderness, No hepatosplenomegaly (surgical incisions well healed) Rectal Exam: deferred Extremities: No edema Skin: No significant lesion Neuro: Normal gait, Normal speech, Strength at 5/5 X4 ext, Normal tone, Sensation intact, Cranial nerves 3-12 NL, Reflexes 2+ Psych/Mental Status: Mental status NL Vitals Vitals Vital Signs Date Time Temp Pulse Resp B/P (MAP) Pulse Ox O2 Delivery O2 Flow Rate FiO2 09/29/18 06:41 145/65 09/29/18 06:38 97.1 55 20 97 Room Air 97.1 Labs Labs Laboratory Tests Test 09/29/18 06:22 Glucose (Fingerstick) 86 mg/dL (70-99) Laboratory Tests Test 09/29/18 06:22 Glucose (Fingerstick) 86 mg/dL (70-99) Images Images FINDINGS 1. Hemodynamics: Left ventricular end-diastolic pressure of 5 mmHg. No pullback gradient across the aortic valve. 2. Left ventriculography: Normal left ventricle systolic function with ejection fraction estimated at 55-60%. No significant mitral regurgitation seen. 3. Coronary angiography: a. The left main coronary artery arose from the left sinus of Valsalva, gave rise to the left anterior descending and left circumflex arteries and showed 30% ostial segment stenosis and 70-80% distal segment stenosis. b. The left anterior descending artery showed patent stent in the proximal segment of the second diagonal branch. No significant stenoses were noted. c. The left circumflex artery showed 80% stenosis in the ostial segment and 70% stenosis in the proximal segment of the first obtuse marginal branch. d. The right coronary artery was a dominant vessel arising from the right sinus of Valsalva that showed 60% stenosis in the distal segment. The posterolateral branch showed 90% stenosis in the midsegment. The posterior descending artery showed 40% stenosis in the proximal segment. VTE Prophylaxis Ordered VTE Prophylaxis Devices: Yes VTE Pharmacological Prophylaxi: Contraindicated Assessment/Plan Assessment/Plan 73-year-old male with a history of PCI to the diagonal approximately 15 years ago, who presented to his primary care physician with stable angina. He went on to have a positive stress test and then a subsequent coronary angiogram which showed a distal 70-80% left main and stem stenosis, a patent diagonal stent, a proximal 80% stenosis in the left circumflex with an ostial 70% in the first OM, 60% to distal RCA lesion and a 90% stenosis in the midsegment of a right posterolateral branch. An echo showed preserved LV function with moderate aortic regurgitation. 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 He is here today for elective surgical coronary revascularization. The patient is a reasonable candidate for CABG. We'll proceed with CABG �3 or 4 (JONES to LAD, radial to OM, SVG to RPDA, and possible SVG to RPL) The risks which include but are not limited to mortality 2%, renal failure requiring dialysis 4-5%, stroke 1-2%, wound infection 5%, pneumonia 5%, reexploration for bleeding 5%, postoperative arrhythmias 20%, were explained to the patient who agrees to proceed. His carotid duplex did not demonstrate any significant carotid artery disease. A noncontrast CT of the chest did not show significant ascending aortic calcification or any other lung or mediastinal pathology. Vein mapping showed adequate size greater saphenous veins in both legs. His echo showed an EF of 50- 55% with moderate aortic regurgitation. Given the patient has no CHF symptoms, LV dilatation, reduced EF, or symptoms consistent with her aortic regurgitation, we will not perform aortic valve replacement and only proceed with CABG. We will continue to monitor his aortic regurgitation in the future and should it deteriorate we will refer him for TAVR. RANJAN FONTAINE MD Sep 29, 2018 08:05
[2018-09-29] MEDS ORDERED: PROPOFOL 20 ML IV ONE (08:42)
[2018-09-29] MEDS ORDERED: PROPOFOL 50 ML IV ONE ×2 (08:42→12:04)
[2018-09-29] MEDS ORDERED: PROTAMINE 250 MG/25 ML VIAL IV ONE ×2 (08:43)
[2018-09-29] MEDS ORDERED: ceFAZolin SODIUM 1 GM VIAL ONE ×2 (08:43)
[2018-09-29] MEDS ORDERED: DEXAMETHASONE SOD PHOS 20 MG/5 ML VIAL. ONE (09:29)
[2018-09-29] MEDS ORDERED: ROCURONIUM 50 MG/5 ML VIAL. ONE (12:37)
[2018-09-29] MEDS ORDERED: EPINEPHrine SYRINGE 1 MG/10 ML SYRINGE ONE (13:27)
[2018-09-29] MEDS ORDERED: AMIODARONE 900 MG in IV DEXTROSE 5% 500 ML IV PRN ×2 (13:30→15:15)
[2018-09-29] MEDS ORDERED: ALBUMIN HUMAN 25% 100 ML IV ONE (13:45)
[2018-09-29] MEDS ORDERED: MANNITOL 25% 12.5 G/50 ML VIAL FOR OR. ONE (13:45)
[2018-09-29] MEDS ORDERED: CALCIUM CHLORIDE 1,000 MG/10 ML DISP.SYRIN ONE (13:45)
[2018-09-29] MEDS ORDERED: MAGNESIUM SULFATE 5 GM/10 ML VIAL. ONE (13:45)
[2018-09-29] MEDS ORDERED: SODIUM BICARB ADULT 8.4% 50 MEQ/50 ML DISP.SYRIN. ONE ×2 (13:45→15:57)
[2018-09-29 13:52] LABS: HEMATOCRIT 32.1 % (39.0-53.0); HEMOGLOBIN 10.9 g/dL (13.0-17.5); WHITE BLOOD COUNT 12.6 x10^3/uL (4.0-11.0)
[2018-09-29] MEDS ORDERED: ALBUMIN HUMAN 5% 500 ML IV ONE (14:05)
[2018-09-29 14:06] LABS: PROTHROMBIN TIME PATIENT 17.9 SEC (11.7-14.0)
[2018-09-29] MEDS ORDERED: niCARdipine 50 MG in IV NORMAL SALINE 250ML 250 ML IV PRN (14:45)
[2018-09-29] MEDS: ASPIRIN RECTAL 300 MG SUPP. PR SCH ×2 (15:04→15:49)
--- NOTE | 2018-09-29 15:11 | PDOC ---
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 Angina HTN Diabetes Chronic renal failure, s/p right nephrectomy Morbid obesity Procedure Performed CABG x 4 (JONES to LAD, radial to OM, SVG to RPL, SVG to RPDA) Left radial artery harvest Bilateral endoscopic greater saphenous vein harvest Surgeon Pepe Fontaine MD FACS Pulmonary Specialist Keeley Macias, BIODIESEL ENGINE SPECIALISTBimal Taylor, AUGUST Keane, [facility] Anesthesiologist Dr Zepeda Anesthesia Type: General Blood Loss Cellsaver IV Fluid Crystalloid: 1200 mls Albumin Cellsaver: 605 mls Urine Output 835 mls Specimens Obtained Small lipoma from anterior chest Findings Good 2mm LAD, OM, RPL and RPDA targets JONES with excellent flow Excellent quality saphenous vein from left and right thigh Excellent radial artery conduit CPB time: 141 min x-clamp time: 123 min Complications None PEPE FONTAINE MD Sep 29, 2018 15:11
--- NOTE | 2018-09-29 15:13 | PDOC4 ---
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 Anesthesiologist Dr Zepeda Anesthesia Type General Blood loss Cellsaver IV fluids Crystalloid: 1200 mls Albumin Cellsaver: 605 mls Urine output 835 mls Specimens obtained Small lipoma from anterior chest Findings Good 2mm LAD, OM, RPL and RPDA targets JONES with excellent flow Excellent quality saphenous vein from left and right thighs Excellent radial artery conduit CPB time: 141 min x-clamp time: 123 min Complications None Indication The patient is a 73-year-old male with a history of PCI to the diagonal approximately 15 years ago, who presented to his primary care physician with stable angina. He went on to have a positive stress test and then a subsequent coronary angiogram which showed a distal 70-80% left main and stem stenosis, a patent diagonal stent, a proximal 80% stenosis in the left circumflex with an ostial 70% in the first OM, 60% to distal RCA lesion and a 90% stenosis in the midsegment of a right posterolateral branch. An echo showed preserved LV function with moderate aortic regurgitation. 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 He is here today for elective surgical coronary revascularization. Given that his AR was moderate and asymptomatic, with normal LV function and no LV dilatation, a decision was made not to replace the aortic valve. Operation After appropriate identification, the patient was brought to the operating room and placed supine on the operating table. Anesthesia was induced and the airway was secured with an endotracheal tube. A right IJ [place]-Kim catheter was placed. A right radial arterial line was also inserted. Antibiotics were delivered and the patient was preped and draped in the usual standard surgical sterile fashion. A timeout was then performed. A median sternotomy was performed and the left internal mammary artery was harvested, which was of good size, with exce llent flow. Simultaneously the left greater saphenous vein was harvested endoscopically. There was a large defect in the vein from a torn side branch, as a result of the harvest. This defect was not repairable, so I decided to harvest endoscopically a length of vein from the right thigh. This vein was of excellent quality and size. The left radial artery was also harvested through an incision from the elbow to the wrist. The radial artery was harvested using the Harmonic scalpel. Prior to dividing the artery, the pulse oxymeter was checked, with the radial clamped. The waveform did not change and O2 sats was 100%. Subsequently the artery was divided. The pericardium was incised. The patient was heparinized. Cardiopulmonary bypass was established through the ascending aorta and the right atrium. A bifurcating antegrade cardioplegia and root vent needle was placed in the ascending aorta. A retrograde catheter was placed in the coronary sinus The patient was cooled to 34�. Arrest was achieved with induction antegrade and retrograde cold blood cardioplegia. The cross-clamp was applied and diastolic arrest was achieved. Intermittent dosages of antegrade and retrograde cardioplegia were given every 20 minutes. Grafts: Saphenous vein graft to right posterior descending coronary artery, end to side anastomosis with 7-0 Prolene. 2 mm vessel Saphenous vein graft to right posterolateral coronary artery, end to side anastomosis with 7-0 Prolene. 2 mm vessel. Radial artery graft to obtuse marginal coronary artery, end to side anastomosis with 7-0 Prolene, 2 mm vessel. Left internal mammary artery to left anterior descending coronary artery, end to side anastomosis with 7-0 Prolene. 2 mm vessel. The proximal anastomoses for the RPDA and RPL grafts were performed using a 5-0 Prolene running suture. 6-0 Prolene was used for the radial artery proximal anastomosis. The cross-clamp was removed. The heart was allowed to rewarm and reperfuse. The grafts were de-aired. The patient was cardioverted from ventricular tachycardia to normal sinus rhythm and was from cardiopulmonary bypass without inotropic support. All cannulae were removed. Heparin was reversed with protamine. Atrial and ventricular pacing wires were placed. Hemostasis was confirmed. An angled 32 Pashto chest tube was placed in the left pleural space, a 32Fr angled in the posterior pericardium and a 32 straight in the anterior pericardium. The sternotomy was closed with seven stainless steel wires. The incision was closed with a layer of 0 Vicryl, followed by 2-0 Vicryl and then 4-0 Monocryl for the epidermis. Sterile dressings were applied. The total cardiopulmonary bypass time was 141 minutes and the cross-clamp time was 123 minutes. The instrument, sponge and needle counts were correct. The patient was then transferred to the ICU in critical con dition. PEPE FONTAINE MD Sep 29, 2018 15:12
[2018-09-29] MEDS ORDERED: PHENYLEPHRINE INJ 20 MG in IV NORMAL SALINE 250ML 250 ML IV PRN (15:15)
[2018-09-29] MEDS ORDERED: DEXTROSE 50% 25 GM / 50ML DISP.SYRIN. IV PRN (15:15)
[2018-09-29] MEDS ORDERED: 0.9 % SODIUM CHLORIDE 10 ML DISP.SYRIN. IV PRN (15:15)
[2018-09-29] MEDS ORDERED: BISACODYL 10 MG SUPP.RECT. PR PRN (15:15)
[2018-09-29] MEDS ORDERED: MAGNESIUM SULFATE 1GM 100 ML IV PRN (15:15)
[2018-09-29] MEDS ORDERED: NITROGLYCERIN PREMIX 250 ML IV PRN (15:15)
[2018-09-29] MEDS ORDERED: MEPERIDINE PF 25 MG/ML VIAL. IV PRN (15:15)
[2018-09-29] MEDS ORDERED: METOCLOPRAMIDE HCL 10 MG/2 ML VIAL. IV PRN (15:15)
[2018-09-29] MEDS ORDERED: PROPOFOL 100 ML IV PRN (15:15)
[2018-09-29] MEDS ORDERED: KCL PER PROTOCOL MC PRN (15:15)
[2018-09-29] MEDS ORDERED: ACETAMINOPHEN 650 MG SUPP.RECT. PR PRN (15:15)
[2018-09-29] MEDS ORDERED: ALBUTEROL SULFATE 2.5 MG/3 ML NEBU. NEB PRN (15:15)
--- NOTE | 2018-09-29 15:24 | RAD ---
EXAM: Chest, single view. HISTORY: Open heart surgery. COMPARISON: Chest CT dated 09/22/2018. FINDINGS: A frontal view of the chest is obtained. There is an endotracheal tube within the distal trachea, with the tip 1.0 cm proximal to the jael. There is a right internal jugular [place]-Kim catheter with the tip in the right main pulmonary artery. There is nasogastric tube looped within the stomach. There are mediastinal and left pleural drainage catheters. There is a trace left pleural effusion and left lower lobe and lingular atelectasis. The heart is normal in size. No pneumothorax is seen. IMPRESSION: 1. Evidence of recent median sternotomy, support lines and tubes described above. Note is made that an endotracheal tube within the distal trachea, 1.0 cm proximal to the jael. 2. Lingular and left lower lobe atelectasis with suspected trace left pleural effusion. Electronically signed by: Rajani Vivas MD (09/29/2018 3:22 PM) [facility]
[2018-09-29 15:33] LABS: BASE EXCESS COOX -6 mmol/L (-3-3); HCO3 COOX 20 mmol/L (21-28); METHEMOGLOBIN 0.5 % (0.0-1.9); OXYHEMOGLOBIN 98.3 %; PCO2 COOX 39 mmHg (35-46); PO2 COOX 269 mmHg (65-108); SAT O2 COOX 99 % (92-99)
[2018-09-29 15:43] LABS: HEMATOCRIT 35.8 % (39.0-53.0); HEMOGLOBIN 12.1 g/dL (13.0-17.5); RED BLOOD COUNT 3.96 x10^6/uL (4.30-5.70); RED CELL DISTRIBUTION WIDTH 14.7 % (11.5-14.5); WHITE BLOOD COUNT 9.9 x10^3/uL (4.0-11.0)
[2018-09-29 15:53] LABS: CALCIUM 9.3 mg/dL (8.5-10.1); CREATININE 1.4 mg/dL (0.7-1.3); GFR 49.4; MAGNESIUM 2.3 mg/dL (1.8-2.4); POTASSIUM 3.8 mmol/L (3.5-5.1)
[2018-09-29] MEDS ORDERED: SODIUM BICARB ADULT 8.4% 50 MEQ/50 ML DISP.SYRIN. IV ONE (16:00)
--- NOTE | 2018-09-29 16:00 | NUR ---
1545 sbp dipped down into low 50's. heart rate sb 46. cardiac index 1.5 and cardiac output 3.4. pt moving arms, coughing. pt able to comprehend verbal stimulation. propofol restarted from surgery, pt given bolus of neosynephrine, av pacemaker turned on at a rate of 80. albumin iv infusing. dr martin notified. abg's reviewed. 1600 pt given bicarb 2 amps as ordered. pt has now stabilized out. propofol and avpacemaker continued to assist pt.
[2018-09-29] MEDS: ALBUMIN HUMAN 5% 250 ML IV PRN ×3 (16:01→18:38)
[2018-09-29] MEDS: IV RINGERS,LACTATED 1000ML 1,000 ML IV SCH (16:03)
[2018-09-29 16:05] LABS: PROTHROMBIN TIME PATIENT 15.2 SEC (11.7-14.0)
--- NOTE | 2018-09-29 16:09 | EKG ---
[facility] [address] [place] [address] Test Date: 2018-09-29 Test Time: 15:58:06 Pat Name: RENALDO HANLEY Department: Room: 102 1 Gender: M Mds Nurse: : 1945 Requested By: RANJAN FONTAINE Order Number: [id number] Reading MD: Measurements Intervals [place] Rate: 80 P: VT: QRS: -40 QRSD: 130 T: 59 QT: 420 QTc: 488 Interpretive Statements ACCELERATED JUNCTIONAL RHYTHM ABNORMAL LEFT AXIS DEVIATION LEFT ANTERIOR FASCICULAR BLOCK RIGHT BUNDLE BRANCH BLOCK BIFASCICULAR BLOCK ABNORMAL ECG RI6.01 Unconfirmed report No previous ECG available for comparison
[2018-09-29] MEDS: POTASSIUM CHL 20MEQ PREMIX 50 ML IV SCH ×2 (16:57→18:09)
--- NOTE | 2018-09-29 17:00 | NUR ---
1645 stopped propofol. attempting sedation vacation. pt attempting to reach up and pull on ett. pt moving legs around in bed in a jumping motion. pt pushing covers off of legs. unable to verbally calm pt. pt [place], but hears better in right ear, so talking to pt on right side of bed. bp 64/30 on arterial line. cardiac index 1.9 with av pacemaker still at a rate of 80. pt diaphoretic. pt given morphine 2 mg iv , propofol restarted. 1700 pt stabilized.
[2018-09-29] MEDS: MORPHINE SULFATE 2 MG/ML VIAL. IV PRN ×6 (17:18→23:07)
[2018-09-29 17:22] LABS: ART BE ISTAT -4 mmol/L (0-3); ART GLUC ISTAT 113 mg/dL (70-99); ART HCO3 ISTAT 21 mmol/L (21-28); ART HCT ISTAT 39 % (37-52); ART HGB ISTAT 13.3 g/dL (14-18); ART ION CA ISTAT 1.22 mmol/L (1.13-1.32); ART NA ISTAT 136 mmol/L (135-145); ART PCO2 ISTAT 33 mmHg (35-45); ART PH ISTAT 7.41 (7.35-7.45); ART PO2 ISTAT 110 mmHg (75-100); ART SAT O2 SAT 98 % (95-99); ART TCO2 ISTAT 22 mmol/L (21-32)
[2018-09-29 17:23] LABS: ART BE ISTAT -4 mmol/L (0-3); ART GLUC ISTAT 153 mg/dL (70-99); ART HCO3 ISTAT 21 mmol/L (21-28); ART HCT ISTAT 33 % (37-52); ART HGB ISTAT 11.2 g/dL (14-18); ART K ISTAT 5.2 mmol/L (3.5-5.0); ART NA ISTAT 135 mmol/L (135-145); ART PCO2 ISTAT 36 mmHg (35-45); ART PH ISTAT 7.38 (7.35-7.45); ART PO2 ISTAT 362 mmHg (75-100); ART SAT O2 SAT 100 % (95-99); ART TCO2 ISTAT 22 mmol/L (21-32)
[2018-09-29 17:23] LABS: ART BE ISTAT 0 mmol/L (0-3); ART GLUC ISTAT 168 mg/dL (70-99); ART HCO3 ISTAT 26 mmol/L (21-28); ART HCT ISTAT 31 % (37-52); ART HGB ISTAT 10.5 g/dL (14-18); ART K ISTAT 3.6 mmol/L (3.5-5.0); ART NA ISTAT 141 mmol/L (135-145); ART PCO2 ISTAT 47 mmHg (35-45); ART PH ISTAT 7.35 (7.35-7.45); ART PO2 ISTAT 374 mmHg (75-100); ART SAT O2 SAT 100 % (95-99); ART TCO2 ISTAT 27 mmol/L (21-32)
[2018-09-29 17:23] LABS: ART BE ISTAT -2 mmol/L (0-3); ART GLUC ISTAT 200 mg/dL (70-99); ART HCO3 ISTAT 24 mmol/L (21-28); ART HCT ISTAT 34 % (37-52); ART HGB ISTAT 11.6 g/dL (14-18); ART ION CA ISTAT 1.16 mmol/L (1.13-1.32); ART K ISTAT 4.3 mmol/L (3.5-5.0); ART NA ISTAT 139 mmol/L (135-145); ART PCO2 ISTAT 44 mmHg (35-45); ART PH ISTAT 7.34 (7.35-7.45); ART PO2 ISTAT 239 mmHg (75-100); ART SAT O2 SAT 100 % (95-99); ART TCO2 ISTAT 25 mmol/L (21-32)
[2018-09-29 17:23] LABS: ART BE ISTAT -4 mmol/L (0-3); ART GLUC ISTAT 129 mg/dL (70-99); ART HCO3 ISTAT 22 mmol/L (21-28); ART HCT ISTAT 38 % (37-52); ART HGB ISTAT 12.9 g/dL (14-18); ART ION CA ISTAT 1.24 mmol/L (1.13-1.32); ART K ISTAT 3.9 mmol/L (3.5-5.0); ART NA ISTAT 137 mmol/L (135-145); ART PCO2 ISTAT 42 mmHg (35-45); ART PH ISTAT 7.33 (7.35-7.45); ART PO2 ISTAT 109 mmHg (75-100); ART SAT O2 SAT 98 % (95-99); ART TCO2 ISTAT 23 mmol/L (21-32)
[2018-09-29 17:23] LABS: ART BE ISTAT -5 mmol/L (0-3); ART GLUC ISTAT 180 mg/dL (70-99); ART HCO3 ISTAT 23 mmol/L (21-28); ART HCT ISTAT 32 % (37-52); ART HGB ISTAT 10.9 g/dL (14-18); ART ION CA ISTAT 1.87 mmol/L (1.13-1.32); ART NA ISTAT 138 mmol/L (135-145); ART PCO2 ISTAT 55 mmHg (35-45); ART PH ISTAT 7.23 (7.35-7.45); ART PO2 ISTAT 120 mmHg (75-100); ART SAT O2 SAT 98 % (95-99); ART TCO2 ISTAT 25 mmol/L (21-32)
[2018-09-29 17:23] LABS: ART BE ISTAT -2 mmol/L (0-3); ART GLUC ISTAT 171 mg/dL (70-99); ART HCO3 ISTAT 22 mmol/L (21-28); ART HCT ISTAT 33 % (37-52); ART HGB ISTAT 11.2 g/dL (14-18); ART ION CA ISTAT 1.13 mmol/L (1.13-1.32); ART K ISTAT 4.8 mmol/L (3.5-5.0); ART NA ISTAT 137 mmol/L (135-145); ART PCO2 ISTAT 36 mmHg (35-45); ART PO2 ISTAT 164 mmHg (75-100); ART SAT O2 SAT 99 % (95-99); ART TCO2 ISTAT 23 mmol/L (21-32)
[2018-09-29 17:23] LABS: ART BE ISTAT -4 mmol/L (0-3); ART GLUC ISTAT 140 mg/dL (70-99); ART HCO3 ISTAT 21 mmol/L (21-28); ART HCT ISTAT 33 % (37-52); ART HGB ISTAT 11.2 g/dL (14-18); ART ION CA ISTAT 1.44 mmol/L (1.13-1.32); ART K ISTAT 3.7 mmol/L (3.5-5.0); ART NA ISTAT 141 mmol/L (135-145); ART PCO2 ISTAT 34 mmHg (35-45); ART PO2 ISTAT 154 mmHg (75-100); ART SAT O2 SAT 99 % (95-99); ART TCO2 ISTAT 22 mmol/L (21-32)
--- NOTE | 2018-09-29 18:19 | HP ---
ADMIT DATE: 09/29/2018 HISTORY OF PRESENT ILLNESS: The patient is a 73-year-old male patient, who apparently has had history of PCI about 15 years ago to his diagonal artery, who presented to Dr. Collazo, his primary care physician with stable angina. He went to have a positive stress test, and then subsequently had coronary angiogram, which showed distal 70-80% left main stem stenosis, patent diagonal stent proximal 80% stenosis, left circumflex and ostial 70%, first obtuse marginal 60%, distal right coronary artery lesion, and 90% stenosis in the mid segment with the right posterolateral branch. An echocardiogram showed his preserved left ventricular function with moderate aortic regurgitation. He was evaluated by the cardiothoracic surgeon and was admitted for coronary artery bypass surgery. PAST MEDICAL HISTORY: Significant for hypertension, hyperlipidemia, known to have chronic renal disease, prostate cancer, renal cell carcinoma. PAST SURGICAL HISTORY: Significant for right nephrectomy and prostatectomy as well as PCI to diagonal. FAMILY HISTORY: Significant for cancer. SOCIAL HISTORY: He is , lives with his . He does not smoke. Drinks alcohol occasionally. He does not use any drugs. MEDICATIONS: He is currently on following medications: He is on atorvastatin calcium 40 mg daily, lisinopril 10 mg once a day, and Ambien 5 mg at bedtime. By the time I saw him, the patient already has had his coronary artery bypass graft surgery x 4 with JONES to left anterior descending, radial to obtuse marginal, saphenous vein graft to right proximal lesion, and saphenous vein graft to right posterior descending artery. Had left radial artery harvest and bilateral endoscopic greater saphenous vein harvests. He was intubated, mechanically ventilated, maintaining his oxygen saturation at 100% on FiO2 of 40%. PHYSICAL EXAMINATION HEAD, EYES, EARS, NOSE AND THROAT: Showed normocephalic, atraumatic. He has orotracheal and orogastric tubes in place. NECK: Supple. HEART: Showed normal first and second heart sounds with no gallop or murmur. CHEST: Clear to auscultation. No crepitation or rhonchi. ABDOMEN: Distended, soft, nontender. NEUROLOGIC: He was sedated, intubated, and mechanically ventilated. LABORATORY DATA: Showed his white cell count was 9900, hemoglobin 12, hematocrit 35, MCV was 91, and platelet count of 112,000. His chemistry showed a serum sodium 146, potassium 3.8, chloride 111, bicarbonate 22, anion gap of 13, BUN 25, creatinine 1.4, estimated GFR was 49 mL per minute. His glucose was 98, calcium was 9.3, and magnesium was 2.3 SUMMARY: This is a 73-year-old male patient who did complain of stable angina and has had a stress test that was positive and subsequently had coronary angiogram, which showed that he has multivessel disease, for which he underwent coronary artery bypass graft surgery. He is currently intubated and mechanically ventilated, off the vasopressors. He is on propofol for sedation. I am covering Dr. Jorge Collazo today and he will be here tomorrow to take over. ZAK HOWELL MD DR: PEACE/luis JOB#: [id number] / [id number]
--- NOTE | 2018-09-29 18:30 | NUR ---
dr martin at bedside. discussed prior episodes of sedation vacations. pt now following commands. shakes head appropriately yes and no. propofol turned off and pt started on weaning trial. abg ordered for 1899.
[2018-09-29 19:00] VITALS: BP 138/54
[2018-09-29 19:11] LABS: BASE EXCESS ABG -4 mmol/L (-3-3); HCO3 ABG 21 mmol/L (21-28); PCO2 ABG 39 mmHg (35-46); PO2 ABG 118 mmHg (65-108); SAT O2 ABG 97 % (92-99)
--- NOTE | 2018-09-29 19:15 | NUR ---
Pt extubated placed on 4L nc spo2 99%, will cont to monitor.
[2018-09-29 19:31] LABS: FIO2 ABG 40
[2018-09-29 19:47] LABS: HEMATOCRIT 33.5 % (39.0-53.0); HEMOGLOBIN 11.5 g/dL (13.0-17.5); RED BLOOD COUNT 3.73 x10^6/uL (4.30-5.70); RED CELL DISTRIBUTION WIDTH 14.5 % (11.5-14.5)
[2018-09-29 19:58] LABS: MAGNESIUM 2.2 mg/dL (1.8-2.4); POTASSIUM 4.9 mmol/L (3.5-5.1)
[2018-09-29 20:00] VITALS: BP 123/46
[2018-09-29] MEDS: oxyCODONE IR 5 MG TABLET PO PRN ×2 (20:13→21:55)
[2018-09-29 21:00] VITALS: BP 112/41
[2018-09-29] MEDS: FAMOTIDINE 20 MG/2 ML VIAL IVP SCH (21:01)
[2018-09-29] MEDS: SENNOSIDES/DOCUSATE 8.6/50MG TABLET. PO SCH (21:01)
[2018-09-29] MEDS ORDERED: AMIODARONE 150 MG in IV DEXTROSE 5% 100ML 100 ML IV ONE (21:15)
[2018-09-29 22:00] VITALS: BP 122/44
[2018-09-29 23:00] VITALS: BP 141/44
[2018-09-30] VITALS (25 sets, daily range): BP systolic 71–141; BP diastolic 41–62
[2018-09-30] MEDS: MORPHINE SULFATE 2 MG/ML VIAL. IV PRN ×5 (00:10→19:28)
[2018-09-30] MEDS: oxyCODONE IR 5 MG TABLET PO PRN ×6 (01:04→20:41)
[2018-09-30 04:23] LABS: HEMATOCRIT 31.7 % (39.0-53.0); HEMOGLOBIN 10.8 g/dL (13.0-17.5); RED BLOOD COUNT 3.5 x10^6/uL (4.30-5.70); RED CELL DISTRIBUTION WIDTH 14.8 % (11.5-14.5); WHITE BLOOD COUNT 8.6 x10^3/uL (4.0-11.0)
[2018-09-30 05:02] LABS: CALCIUM 9.1 mg/dL (8.5-10.1); CREATININE 1.6 mg/dL (0.7-1.3); GFR 42.3; MAGNESIUM 2.2 mg/dL (1.8-2.4)
[2018-09-30] MEDS: MORPHINE SULFATE 4 MG/ML VIAL. IV PRN ×2 (05:15→09:10)
[2018-09-30] MEDS ORDERED: ASPIRIN RECTAL 300 MG SUPP. PR PRN (08:00)
[2018-09-30] MEDS: ACETAMINOPHEN 325 MG TABLET. PO PRN ×3 (08:18→18:12)
[2018-09-30] MEDS: FAMOTIDINE 20 MG/2 ML VIAL IVP SCH ×2 (08:18→20:40)
[2018-09-30] MEDS: SENNOSIDES/DOCUSATE 8.6/50MG TABLET. PO SCH ×2 (08:18→20:41)
[2018-09-30] MEDS: ASPIRIN ENTERIC COATED 325 MG TABLET.DR. PO SCH (08:18)
[2018-09-30] MEDS: ONDANSETRON PF 4 MG/2 ML VIAL. IV PRN ×2 (08:18→18:25)
--- NOTE | 2018-09-30 08:22 | NUR ---
SS following for discharge planning. SS reviewed pt chart. Pt is from home with spouse and is currently requiring oxygen. No discharge needs noted at this time. SS will continue to follow for discharge planning.
--- NOTE | 2018-09-30 08:36 | RAD ---
EXAM: CHEST 1 VIEW History: CABG COMPARISON: 09/29/2018 TECHNIQUE: Single portable radiograph of the chest FINDINGS: Interval removal of ET tube, feeding tube. Low lung volumes and technique accentuates heart size and pulmonary vascularity. Moderate cardiomegaly. Right internal jugular [place] catheter sheath is identified. Interval removal of [place] catheter. The left chest tube, mediastinal tubes are unchanged. Left lung base airspace opacities likely pneumonia or atelectasis with a small left pleural effusion. Mild congestive changes. IMPRESSION: Left lung base airspace opacities likely atelectasis or infiltrate mildly increased since prior exam. Electronically signed by: Sadiq Mena MD (09/30/2018 8:33 AM) [id number]
--- NOTE | 2018-09-30 08:56 | PN ---
DATE: 09/30/2018 LOCATION: He is in room ICU 102. SUBJECTIVE: The patient is up sitting in a chair, awake, alert. Nursing voices no complaints, feeling like he has done very well today. PHYSICAL EXAMINATION: VITAL SIGNS: Stable. He is afebrile. CHEST: Reveals somewhat decreased breath sounds. HEART: Regular rate and rhythm. He does have a soft rub present. ABDOMEN: Benign. EXTREMITIES: Without cyanosis, clubbing, or edema. NEUROLOGIC: Intact. LABORATORY DATA: Hemoglobin this morning is 10.8. He is on 4 liters per nasal cannula O2. Creatinine is 1.6, up a little bit from admission today. Sugars have been anywhere from 140 to 160. This morning, his chest x-ray is pending. IMPRESSION: 1. Status post coronary artery bypass grafting, doing well today. 2. Postoperative anemia. 3. Hypertension. PLAN: Continue supportive care. The patient is doing extremely well to date. PAM BELLO MD DR: GILBERT/luis JOB#: [id number] / [id number]
[2018-09-30] MEDS ORDERED: CHLORHEXIDINE 0.12% 15 ML MOUTHWASH. MM SCH (09:00)
[2018-09-30] MEDS: METOPROLOL TART IMMED RELEASE 25 MG TABLET. PO SCH ×2 (09:00→20:57)
--- NOTE | 2018-09-30 09:30 | PDOC2 ---
DELORES OLSON IRRIGATION MANAGER 09/30/18 0929: CARDIAC CONSULT DATE OF CONSULT Date of Consult DATE: 09/30/18 TIME: 0840 REASON FOR CONSULT Reason for Consult: S/P CABG REFERRING PHYSICIAN Referring Physician: Sariah SOURCE Source: Chart review, Patient HISTORY OF PRESENT ILLNESS HISTORY OF PRESENT ILLNESS This is a pleasant 73 yo male admitted for planned CABG. He is known to our group and had LHC on 09/11/2018 and noted with severe 3VD with preserved EF needing CABG. He is S/P CABG x4 POD#1 and tolerated procedure well. He is currently sitting up and for the most part surgical pain is controlled. He is not SOA but is limited currently with IS use. BP is marginally low but stable and no further ectopies with NSVT noted last night postoperatively. He tolerated his initial transfer to chair and denies dizziness or any palpitations. PAST MEDICAL HISTORY Cardiovascular: CAD, HTN, Hyperlipidemia, Valve insufficiency (mod AI) GI: Diverticulosis, GERD Heme/Onc: Cancer (renal) Psych: No pertinent hx Musculoskeletal: Osteoarthritis Rheumatologic: No pertinent hx Infectious disease: No pertinent hx ENT: Other (TRIBE) Renal/: Chronic renal insuff, UTI, Prostate Ca., Bladder Ca. Endocrine: No pertinent hx Dermatology: No pertinent hx PAST SURGICAL HISTORY Past Surgical History: Other (right nephrectomy; prostatectomy; PCI/diagonal remotely) FAMILY HISTORY Family History noncontributory to CV SOCIAL HISTORY Smoke: No ALCOHOL: none Drugs: None Lives: with Family CURRENT MEDICATIONS CURRENT MEDICATIONS Current Medications Medications (Trade) Dose Ordered Sig/Claudio Route PRN Reason Start Time Stop Time Status Last Admin Dose Admin Nicardipine HCl 50 mg/Sodium Chloride 250 ml @ 25 mls/hr CONT PRN IV SEE I/O RECORD 09/29/18 14:45 09/29/18 19:17 Ringer's Solution 1,000 ml @ 30 mls/hr Q24H IV 09/29/18 15:14 09/29/18 16:03 Albumin Human 250 ml @ 500 mls/hr PRN Q4HRS PRN IV SEE COMMENTS 09/29/18 15:15 09/29/18 18:38 Insulin Human Regular 150 unit/ Sodium Chloride 151.5 ml @ 0 mls/hr CONT PRN PRN IV PER PROTOCOL 09/29/18 15:15 09/29/18 15:20 Amiodarone HCl 900 mg/Dextrose 518 ml @ 0 mls/hr CONT PRN PRN IV AFIB 09/29/18 15:15 09/29/18 15:20 Famotidine (Pepcid Vial) 20 mg BID IVP 09/29/18 21:00 09/30/18 08:18 Ondansetron HCl (Zofran) 4 mg PRN Q4HRS PRN IV NAUSEA/VOMITING, 1st CHOICE 09/29/18 15:15 09/30/18 08:18 Morphine Sulfate (Morphine Sulfate) 2 mg PRN Q1HR PRN IV PAIN 09/29/18 15:15 09/30/18 04:17 Morphine Sulfate (Morphine Sulfate) 4 mg PRN Q1HR PRN IV PAIN 09/29/18 15:15 09/30/18 09:10 Acetaminophen (Tylenol) 650 mg PRN Q4HRS PRN PO TEMP > 101'F or PAIN 09/29/18 15:15 09/30/18 08:18 Propofol 100 ml @ 0 mls/hr CONT PRN PRN IV POSTOP SEDATION UNTIL EXTUBATE 09/29/18 15:15 09/29/18 17:20 Senna/Docusate Sodium (Senna Plus) 1 tab BID PO 09/29/18 21:00 09/30/18 08:18 Aspirin (Ecotrin) 325 mg DAILYWBKFT PO 09/30/18 08:00 09/30/18 08:18 Oxycodone HCl (Roxicodone) 5 mg PRN Q4HRS PRN PO MILD TO MODERATE PAIN 09/29/18 15:15 09/29/18 21:55 Oxycodone HCl (Roxicodone) 10 mg PRN Q4HRS PRN PO SEVERE PAIN 09/29/18 15:15 09/30/18 08:18 Cefazolin Sodium/ Dextrose 50 ml @ 100 mls/hr Q8H IV 09/29/18 20:15 10/01/18 04:44 09/30/18 04:16 Sodium Bicarbonate (Sodium Bicarb Adult 8.4% Syr) 100 meq 1X ONCE IV 09/29/18 16:00 09/29/18 16:01 DC 09/29/18 16:00 Potassium Chloride/Water 50 ml @ 50 mls/hr Q1H IV 09/29/18 17:00 09/29/18 18:59 DC 09/29/18 18:09 Amiodarone HCl 150 mg/Dextrose 103 ml @ 618 mls/hr 1X ONCE IV 09/29/18 21:15 09/29/18 21:24 DC 09/29/18 21:02 ALLERGIES ALLERGIES: Coded Allergies: No Known Drug Allergies (Unverified , 08/11/14) ROS Review of System 14 point ROS evaluated with pertinent positives noted per HPI PHYSICAL EXAM General: Alert, Oriented X3, Cooperative, No acute distress HEENT: Atraumatic, Mucous membr. moist/pink Lungs: Other (diminished, chest tube in place with serosanguinous) Heart: Regular rate (SR with intermittent PVcs), Other (distant heart sounds) Abdomen: Soft, No tenderness Extremities: No cyanosis, Other (trace to 1+ LE edema) Skin: No breakdown, No significant lesion Neuro: Normal speech, Sensation intact Psych/Mental Status: Mental status NL, Mood NL MUSCULOSKELETAL: Osteoarthritic changes both hands VITALS/I&O VITALS/I&O: Vital Signs Date Time Temp Pulse Resp B/P (MAP) Pulse Ox O2 Delivery O2 Flow Rate FiO2 09/30/18 09:10 24 95 Nasal Cannula 4.0 09/30/18 07:00 60 99/50 (66) 09/30/18 05:00 97.5 97.5 I & O 09/29/18 09/29/18 09/30/18 14:59 22:59 06:59 Intake Total 1856 ml 885 ml Output Total 1145 ml 542 ml Balance 711 ml 343 ml LABS Lab: Laboratory Tests Test 09/29/18 09:59 09/29/18 11:17 09/29/18 11:46 09/29/18 11:47 POC Hemoglobin (Calculated) 12.9 g/dL (14-18) L 11.2 g/dL (14-18) L 11.2 g/dL (14-18) L POC Hematocrit 38 % (37-52) 33 % (37-52) L 33 % (37-52) L Activated Clotting Time 570 SEC (90-125) H 541 SEC (90-125) H 479 SEC (90-125) H POC Arterial pH 7.33 (7.35-7.45) L 7.38 (7.35-7.45) 7.40 (7.35-7.45) POC Arterial pCO2 42 mmHg (35-45) 36 mmHg (35-45) 36 mmHg (35-45) POC Arterial pO2 109 mmHg (75-100) H 362 mmHg (75-100) H 164 mmHg (75-100) H POC Arterial HCO3 22 mmol/L (21-28) 21 mmol/L (21-28) 22 mmol/L (21-28) POC Arterial Total CO2 23 mmol/L (21-32) 22 mmol/L (21-32) 23 mmol/L (21-32) Arterial Bld O2 Saturation (Measur) 98 % (95-99) 100 % (95-99) H 99 % (95-99) POC Arterial Blood Base Excess -4 mmol/L (0-3) L -4 mmol/L (0-3) L -2 mmol/L (0-3) L POC FiO2 100.0 70.0 70.0 POC Sodium 137 mmol/L (135-145) 135 mmol/L (135-145) 137 mmol/L (135-145) POC Potassium 3.9 mmol/L (3.5-5.0) 5.2 mmol/L (3.5-5.0) H 4.8 mmol/L (3.5-5.0) Glucose Level 129 mg/dL (70-99) H 153 mg/dL (70-99) H 171 mg/dL (70-99) H POC Ionized Calcium (Kamari) 1.24 mmol/L (1.13-1.32) 1.10 mmol/L (1.13-1.32) L 1.13 mmol/L (1.13-1.32) Test 09/29/18 12:19 09/29/18 12:47 09/29/18 12:48 09/29/18 13:21 Activated Clotting Time 453 SEC (90-125) H 457 SEC (90-125) H 503 SEC (90-125) H POC Hemoglobin (Calculated) 11.6 g/dL (14-18) L POC Hematocrit 34 % (37-52) L POC Arterial pH 7.34 (7.35-7.45) L POC Arterial pCO2 44 mmHg (35-45) POC Arterial pO2 239 mmHg (75-100) H POC Arterial HCO3 24 mmol/L (21-28) POC Arterial Total CO2 25 mmol/L (21-32) Arterial Bld O2 Saturation (Measur) 100 % (95-99) H POC Arterial Blood Base Excess -2 mmol/L (0-3) L POC FiO2 85.0 POC Sodium 139 mmol/L (135-145) POC Potassium 4.3 mmol/L (3.5-5.0) Glucose Level 200 mg/dL (70-99) H POC Ionized Calcium (Kamari) 1.16 mmol/L (1.13-1.32) Test 09/29/18 13:22 09/29/18 13:42 09/29/18 13:45 09/29/18 14:32 POC Hemoglobin (Calculated) 10.9 g/dL (14-18) L 10.5 g/dL (14-18) L 11.2 g/dL (14-18) L POC Hematocrit 32 % (37-52) L 31 % (37-52) L 33 % (37-52) L POC Arterial pH 7.23 (7.35-7.45) L 7.35 (7.35-7.45) 7.40 (7.35-7.45) POC Arterial pCO2 55 mmHg (35-45) H 47 mmHg (35-45) H 34 mmHg (35-45) L POC Arterial pO2 120 mmHg (75-100) H 374 mmHg (75-100) H 154 mmHg (75-100) H POC Arterial HCO3 23 mmol/L (21-28) 26 mmol/L (21-28) 21 mmol/L (21-28) POC Arterial Total CO2 25 mmol/L (21-32) 27 mmol/L (21-32) 22 mmol/L (21-32) Arterial Bld O2 Saturation (Measur) 98 % (95-99) 100 % (95-99) H 99 % (95-99) POC Arterial Blood Base Excess -5 mmol/L (0-3) L 0 mmol/L (0-3) -4 mmol/L (0-3) L POC FiO2 85.0 100.0 100.0 POC Sodium 138 mmol/L (135-145) 141 mmol/L (135-145) 141 mmol/L (135-145) POC Potassium 4.0 mmol/L (3.5-5.0) 3.6 mmol/L (3.5-5.0) 3.7 mmol/L (3.5-5.0) Glucose Level 180 mg/dL (70-99) H 168 mg/dL (70-99) H 140 mg/dL (70-99) H POC Ionized Calcium (Kamari) 1.87 mmol/L (1.13-1.32) H 1.60 mmol/L (1.13-1.32) H 1.44 mmol/L (1.13-1.32) H Activated Clotting Time 122 SEC (90-125) White Blood Count 12.6 x10^3/uL (4.0-11.0) H Hemoglobin 10.9 g/dL (13.0-17.5) L Hematocrit 32.1 % (39.0-53.0) L Platelet Count 123 x10^3/uL (140-400) L Prothrombin Time 17.9 SEC (11.7-14.0) H Prothrombin Time INR 1.5 (0.8-1.1) H PTT 29 SEC (24-38) Fibrinogen 266 mg/dL (200-440) Test 09/29/18 15:14 09/29/18 15:30 09/29/18 15:57 09/29/18 17:26 O2 Saturation 99 % (92-99) Arterial Blood pH 7.31 (7.35-7.45) L Arterial Blood pCO2 at Patient Temp 39 mmHg (35-46) Arterial Blood pO2 at Patient Temp 269 mmHg (65-108) H Arterial Blood HCO3 20 mmol/L (21-28) L Arterial Blood Base Excess -6 mmol/L (-3-3) L Oxyhemoglobin 98.3 % Methemoglobin 0.5 % (0.0-1.9) Carbon Monoxide, Quantitative 0.2 % (0.0-1.9) FiO2 100 White Blood Count 9.9 x10^3/uL (4.0-11.0) Red Blood Count 3.96 x10^6/uL (4.30-5.70) L Hemoglobin 12.1 g/dL (13.0-17.5) L Hematocrit 35.8 % (39.0-53.0) L Mean Corpuscular Volume 91 fL (79-100) Mean Corpuscular Hemoglobin 30 pg (25-35) Mean Corpuscular Hemoglobin Concent 34 g/dL (31-37) Red Cell Distribution Width 14.7 % (11.5-14.5) H Platelet Count 112 x10^3/uL (140-400) L Prothrombin Time 15.2 SEC (11.7-14.0) H Prothrombin Time INR 1.2 (0.8-1.1) H PTT 31 SEC (24-38) Sodium Level 146 mmol/L (136-145) H Potassium Level 3.8 mmol/L (3.5-5.1) Chloride Level 111 mmol/L (98-107) H Carbon Dioxide Level 22 mmol/L (21-32) Anion Gap 13 (6-14) Blood Urea Nitrogen 25 mg/dL (8-26) Creatinine 1.4 mg/dL (0.7-1.3) H Estimated GFR (Cockcroft-Gault) 49.4 Glucose Level 119 mg/dL (70-99) H Calcium Level 9.3 mg/dL (8.5-10.1) Magnesium Level 2.3 mg/dL (1.8-2.4) Glucose (Fingerstick) 98 mg/dL (70-99) 131 mg/dL (70-99) H Test 09/29/18 18:40 09/29/18 19:05 09/29/18 19:40 09/29/18 21:06 Glucose (Fingerstick) 164 mg/dL (70-99) H 160 mg/dL (70-99) H 107 mg/dL (70-99) H O2 Saturation 97 % (92-99) Arterial Blood pH 7.35 (7.35-7.45) Arterial Blood pCO2 at Patient Temp 39 mmHg (35-46) Arterial Blood pO2 at Patient Temp 118 mmHg (65-108) H Arterial Blood HCO3 21 mmol/L (21-28) Arterial Blood Base Excess -4 mmol/L (-3-3) L FiO2 40 White Blood Count 9.0 x10^3/uL (4.0-11.0) Red Blood Count 3.73 x10^6/uL (4.30-5.70) L Hemoglobin 11.5 g/dL (13.0-17.5) L Hematocrit 33.5 % (39.0-53.0) L Mean Corpuscular Volume 90 fL (79-100) Mean Corpuscular Hemoglobin 31 pg (25-35) Mean Corpuscular Hemoglobin Concent 34 g/dL (31-37) Red Cell Distribution Width 14.5 % (11.5-14.5) Platelet Count 112 x10^3/uL (140-400) L Potassium Level 4.9 mmol/L (3.5-5.1) # Magnesium Level 2.2 mg/dL (1.8-2.4) Test 09/29/18 22:05 09/29/18 23:10 09/29/18 23:56 09/30/18 01:03 Glucose (Fingerstick) 155 mg/dL (70-99) H 151 mg/dL (70-99) H 147 mg/dL (70-99) H 145 mg/dL (70-99) H Test 09/30/18 02:05 09/30/18 03:09 09/30/18 04:00 09/30/18 05:13 Glucose (Fingerstick) 139 mg/dL (70-99) H 150 mg/dL (70-99) H 155 mg/dL (70-99) H White Blood Count 8.6 x10^3/uL (4.0-11.0) Red Blood Count 3.50 x10^6/uL (4.30-5.70) L Hemoglobin 10.8 g/dL (13.0-17.5) L Hematocrit 31.7 % (39.0-53.0) L Mean Corpuscular Volume 91 fL (79-100) Mean Corpuscular Hemoglobin 31 pg (25-35) Mean Corpuscular Hemoglobin Concent 34 g/dL (31-37) Red Cell Distribution Width 14.8 % (11.5-14.5) H Platelet Count 114 x10^3/uL (140-400) L Sodium Level 146 mmol/L (136-145) H Potassium Level 5.0 mmol/L (3.5-5.1) Chloride Level 111 mmol/L (98-107) H Carbon Dioxide Level 23 mmol/L (21-32) Anion Gap 12 (6-14) Blood Urea Nitrogen 36 mg/dL (8-26) H Creatinine 1.6 mg/dL (0.7-1.3) H Estimated GFR (Cockcroft-Gault) 42.3 Glucose Level 165 mg/dL (70-99) H Calcium Level 9.1 mg/dL (8.5-10.1) Magnesium Level 2.2 mg/dL (1.8-2.4) Test 09/30/18 08:16 Glucose (Fingerstick) 142 mg/dL (70-99) H Laboratory Tests 09/29/18 13:45 09/29/18 15:30 09/29/18 19:40 09/30/18 04:00 Laboratory Tests 09/29/18 09:59 09/29/18 11:17 09/29/18 11:47 09/29/18 12:48 09/29/18 13:22 09/29/18 13:42 09/29/18 14:32 09/29/18 15:30 09/29/18 19:40 09/30/18 04:00 ECHOCARDIOGRAM ECHOCARDIOGRAM <Conclusion> There is grossly normal wall motion. Technically limited images Doppler and Color Flow revealed moderate aortic regurgitation. The left ventricular systolic function is low normal. EF 50-55% DATE: 09/11/18 1351 HEART CATH HEART CATH FINDINGS 1. Hemodynamics: Left ventricular end-diastolic pressure of 5 mmHg. No pullback gradient across the aortic valve. 2. Left ventriculography: Normal left ventricle systolic function with ejection fraction estimated at 55-60%. No significant mitral regurgitation seen. 3. Coronary angiography: a. The left main coronary artery arose from the left sinus of Valsalva, gave rise to the left anterior descending and left circumflex arteries and showed 30% ostial segment stenosis and 70-80% distal segment stenosis. b. The left anterior descending artery showed patent stent in the proximal segment of the second diagonal branch. No significant stenoses were noted. c. The left circumflex artery showed 80% stenosis in the ostial segment and 70% stenosis in the proximal segment of the first obtuse marginal branch. d. The right coronary artery was a dominant vessel arising from the right sinus of Valsalva that showed 60% stenosis in the distal segment. The posterolateral branch showed 90% stenosis in the midsegment. The posterior descending artery showed 40% stenosis in the proximal segment. Conclusion 1. Severe three-vessel coronary artery disease including significant left main coronary artery stenosis as described above 2. Normal left ventricle systolic function with ejection fraction estimated at 55-60% Recommendations Cardiothoracic surgery team consultation for possible coronary artery bypass surgery DATE: 09/11/18 1100 ASSESSMENT/PLAN ASSESSMENT/PLAN 1. 3VD: S/P CABG x 4 (JONES to LAD, radial to OM, SVG to RPL, SVG to RPDA) POD#1 2. HTN: marginally low 4. HLP 5. [place] on CKD3: with past right nephrectomy from renal CA. Nephrology following 6. Obesity 7. Arrhythmia: NSVT last noc, none further overnight 8. Moderate AI Recommendations 1. Post CABG protocol. BMP this afternoon. Will check Mg 2. Aggressive IS, Act as edwar with rehab 3. lipids, will place on statin. ASA. Resume BB once BP is more adequate. 4. Will need outpt KENDRA w/u if none done. SANDRA GARCIA MD 09/30/18 1722: CARDIAC CONSULT ASSESSMENT/PLAN ASSESSMENT/PLAN Patient seen and examined. Agree with CASHIER GREETER's assessment and plan. s/p CABG, progressing well. Presently extubated. Telemetry showed paced rhythm. Continue postop care per CTS. Resume beta blockers when blood pressure stable. Thank you for your consultation DELORES OLSON APRN Sep 30, 2018 09:29 SANDRA GARCIA MD Sep 30, 2018 17:22
[2018-09-30] MEDS: ALBUMIN HUMAN 5% 250 ML IV PRN ×2 (09:42→11:48)
--- NOTE | 2018-09-30 10:35 | NUR ---
RN notified Cardiology that patient has had persistent L shoulder pain. Order received for ice/heat. PRN pain medications have already been given. Patient refused heating pad or ice pack. Patient is up in chair, but refuses to walk until 1100. Walker, gait belt, O2, monitor ready in room. PT/OT order placed as well.
[2018-09-30] MEDS ORDERED: FUROSEMIDE 20 MG/2 ML VIAL. IVP ONE (11:30)
[2018-09-30] MEDS: IV RINGERS,LACTATED 1000ML 1,000 ML IV SCH (11:49)
--- NOTE | 2018-09-30 13:17 | PDOC2 ---
CONSULT Date of Consult Date of Consult DATE: 09/30/18 TIME: 12:58 Reason for Consult Reason for Consult: dorota Identification/Chief Complaint Chief Complaint No complaints at present Source Source: Chart review, Patient History of Present Illness Reason for Visit: The patient is a 73-year-old CM with a history of PCI to the diagonal approximately 15 years ago, who presented to his primary care physician with stable angina. He went on to have a positive stress test and then a subsequent coronary angiogram on 09/11 . An echo showed preserved LV function with moderate aortic regurgitation. 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 He was admitted on 09/29 for elective surgical coronary revascularization. Renal consulted for DOROTA. He is s/p CABG 09/29 .Denies any CP/SOB . No N/V/D. Has never seen renal in the past. Good UOP , On 4 lt O2 by NC . Baseline Cr 1.2 to 1.3 earlier this month . Past Medical History Cardiovascular: HTN Pulmonary: No pertinent hx GI: No pertinent hx Heme/Onc: No pertinent hx, Cancer Hepatobiliary: No pertinent hx Psych: No pertinent hx Rheumatologic: No pertinent hx Infectious disease: No pertinent hx ENT: No pertinent hx Renal/: Chronic renal failure, Prostate Ca., Renal Ca. Endocrine: No pertinent hx Dermatology: No pertinent hx Past Surgical History Past Surgical History: Other (PCI to diagonal, nepherectomy, prostatectomy) Family History Family History: Cancer Social History No ALCOHOL: rare Drugs: None Current Problem List Problem List Problems Medical Problems: (1) 3-vessel coronary artery disease Status: Chronic (2) Chronic renal failure Status: Chronic (3) Diabetes Status: Chronic (4) HTN (hypertension) Status: Chronic (5) Morbid obesity Status: Chronic (6) Stable angina Status: Acute Current Medications Current Medications Current Medications Cefazolin Sodium 1 gm/Sodium Chloride 500 ml @ 500 mls/hr 1X ONCE IRR Last administered on 09/29/18at 08:41; Start 09/29/18 at 06:00; Stop 09/29/18 at 07:00; Status DC Potassium Chloride 70 meq/ Sodium Bicarbonate 12.5 meq/Lidocaine HCl 24 ml/Parenteral Electrolytes 571.5 ml @ 571.5 mls/ hr 1X ONCE IRR Last administered on 09/29/18at 11:04; Start 09/29/18 at 06:00; Stop 09/29/18 at 07:00; Status DC Potassium Chloride 15 meq/ Sodium Bicarbonate 12.5 meq/Parenteral Electrolytes 520 ml @ 520 mls/hr 1X ONCE IRR Last administered on 09/29/18at 11:04; Start 09/29/18 at 06:00; Stop 09/29/18 at 07:00; Status DC Heparin Sodium (Porcine) 36309 unit/Ringer's Solution 1,020 ml @ 1,020 mls/hr 1X ONCE IRR Last administered on 09/29/18at 08:41; Start 09/29/18 at 06:00; Stop 09/29/18 at 07:00; Status DC Ondansetron HCl (Zofran) 4 mg PRN Q6HRS PRN IV NAUSEA/VOMITING; Start 09/29/18 at 07:00; Stop 09/30/18 at 06:59; Status DC Fentanyl Citrate (Fentanyl 2ml Vial) 25 mcg PRN Q5MIN PRN IV MILD PAIN 1-3; Start 09/29/18 at 07:00; Stop 09/30/18 at 06:59; Status DC Fentanyl Citrate (Fentanyl 2ml Vial) 50 mcg PRN Q5MIN PRN IV MODERATE TO SEVERE PAIN; Start 09/29/18 at 07:00; Stop 09/30/18 at 06:59; Status DC Morphine Sulfate (Morphine Sulfate) 1 mg PRN Q10MIN PRN IV SEVERE PAIN 7-10; Start 09/29/18 at 07:00; Stop 09/30/18 at 06:59; Status DC Ringer's Solution 1,000 ml @ 30 mls/hr Q24H IV Last administered on 09/29/18at 07:00; Start 09/29/18 at 07:00; Stop 09/29/18 at 18:59; Status DC Lidocaine HCl (Xylocaine-Mpf 1% 2ml Vial) 2 ml PRN 1X PRN ID PRIOR TO IV START; Start 09/29/18 at 07:00; Stop 09/30/18 at 06:59; Status DC Hydromorphone HCl (Dilaudid) 0.5 mg PRN Q10MIN PRN IV SEV PAIN, Second choice; Start 09/29/18 at 07:00; Stop 09/30/18 at 06:59; Status DC Prochlorperazine Edisylate (Compazine) 5 mg PACU PRN PRN IV NAUSEA, MRX1; Start 09/29/18 at 07:00; Stop 09/30/18 at 06:59; Status DC Cefazolin Sodium/ Dextrose 50 ml @ 100 mls/hr 1X PREOP PRN IV PRIOR TO PROCEDURE; Start 09/29/18 at 06:00; Stop 09/29/18 at 18:00; Status DC Insulin Human Regular 150 unit/ Sodium Chloride 151.5 ml @ 0 mls/hr CONT PRN IV SEE I/O RECORD; Start 09/29/18 at 06:00; Stop 09/29/18 at 15:31; Status DC Heparin Sodium (Porcine) 800 unit/ Nitroglycerin 4 mg/Verapamil HCl 8 mg/Sodium Bicarbonate 0.34 meq/Ringer's Solution 512.34 ml @ 512.34 mls/hr 1X ONCE IRR Last administered on 09/29/18at 08:31; Start 09/29/18 at 06:00; Stop 09/29/18 at 07:00; Status DC Etomidate (Amidate) 20 mg STK-MED ONCE IV ; Start 09/29/18 at 06:24; Stop 09/29/18 at 06:25; Status DC Lidocaine HCl (Lidocaine Pf 2% Vial) 5 ml STK-MED ONCE .ROUTE ; Start 09/29/18 at 06:24; Stop 09/29/18 at 06:25; Status DC Heparin Sodium (Porcine) 30,000 unit STK-MED ONCE .ROUTE ; Start 09/29/18 at 06:24; Stop 09/29/18 at 06:25; Status DC Aminocaproic Acid (Amicar) 5,000 mg STK-MED ONCE IV ; Start 09/29/18 at 06:24; Stop 09/29/18 at 06:25; Status DC Phenylephrine HCl (Clarence-Synephrine Inj) 10 mg STK-MED ONCE .ROUTE ; Start 09/29/18 at 06:24; Stop 09/29/18 at 06:25; Status DC Ephedrine Sulfate (ePHEDrine PF IN SALINE SYRINGE) 50 mg STK-MED ONCE IV ; Start 09/29/18 at 06:24; Stop 09/29/18 at 06:25; Status DC Nitroglycerin/ Dextrose 250 ml @ As Directed STK-MED ONCE IV ; Start 09/29/18 at 06:24; Stop 09/29/18 at 06:25; Status DC Rocuronium Scio (Zemuron) 100 mg STK-MED ONCE .ROUTE ; Start 09/29/18 at 06:25; Stop 09/29/18 at 06:26; Status DC Sufentanil Citrate (Sufenta) 250 mcg STK-MED ONCE .ROUTE ; Start 09/29/18 at 06:26; Stop 09/29/18 at 06:27; Status DC Midazolam HCl (Versed) 2 mg STK-MED ONCE .ROUTE ; Start 09/29/18 at 06:27; Stop 09/29/18 at 06:28; Status DC Vancomycin HCl (VANCO for OR ONLY) 10 gm STK-MED ONCE .ROUTE Last administered on 09/29/18at 08:41; Start 09/29/18 at 05:54; Stop 09/29/18 at 06:54; Status DC Cellulose (Surgicel Hemostat 4x8) 1 each STK-MED ONCE .ROUTE Last administered on 09/29/18 08:41; Start 09/29/18 at 05:54; Stop 09/29/18 at 06:54; Status DC Papaverine HCl 60 mg STK-MED ONCE .ROUTE Last administered on 09/29/18 08:41; Start 09/29/18 at 05:54; Stop 09/29/18 at 06:54; Status DC Sodium Chloride (SODIUM CHLORIDE 20ml) 20 ml STK-MED ONCE IJ Last administered on 09/29/18 08:41; Start 09/29/18 at 05:54; Stop 09/29/18 at 06:54; Status DC Aspirin (Aspirin Rectal Supp) 300 mg ONCE CA Last administered on 09/29/18at 15:49; Start 09/29/18 at 07:00 Sodium Chloride (SODIUM CHLORIDE 20ml) 20 ml STK-MED ONCE IJ Last administered on 09/29/18 08:41; Start 09/29/18 at 05:56; Stop 09/29/18 at 06:56; Status DC Sodium Chloride (SODIUM CHLORIDE 20ml) 20 ml STK-MED ONCE IJ Last administered on 09/29/18 08:41; Start 09/29/18 at 05:56; Stop 09/29/18 at 06:56; Status DC Fentanyl Citrate (Fentanyl 2ml Vial) 100 mcg STK-MED ONCE .ROUTE ; Start 09/29/18 at 07:05; Stop 09/29/18 at 07:06; Status DC Heparin Sodium (Porcine) (Heparin Sodium) 10,000 unit STK-MED ONCE .ROUTE ; Start 09/29/18 at 07:27; Stop 09/29/18 at 07:28; Status DC Rocuronium Scio (Zemuron) 100 mg STK-MED ONCE .ROUTE ; Start 09/29/18 at 08:05; Stop 09/29/18 at 08:06; Status DC Propofol 20 ml @ As Directed STK-MED ONCE IV ; Start 09/29/18 at 08:42; Stop 09/29/18 at 08:43; Status DC Propofol 50 ml @ As Directed STK-MED ONCE IV ; Start 09/29/18 at 08:42; Stop 09/29/18 at 08:43; Status DC Protamine Sulfate (Protamine) 250 mg STK-MED ONCE IV ; Start 09/29/18 at 08:43; Stop 09/29/18 at 08:44; Status DC Protamine Sulfate (Protamine) 250 mg STK-MED ONCE IV ; Start 09/29/18 at 08:43; Stop 09/29/18 at 08:44; Status DC Cefazolin Sodium (Ancef) 1 gm STK-MED ONCE .ROUTE ; Start 09/29/18 at 08:43; Stop 09/29/18 at 08:44; Status DC Cefazolin Sodium (Ancef) 1 gm STK-MED ONCE .ROUTE ; Start 09/29/18 at 08:43; Stop 09/29/18 at 08:44; Status DC Dexamethasone Sodium Phosphate (Decadron) 20 mg STK-MED ONCE .ROUTE ; Start 09/02 at 09:29; Stop 09/29/18 at 09:30; Status DC Aminocaproic Acid (Amicar) 5,000 mg STK-MED ONCE IV ; Start 09/29/18 at 11:37; Stop 09/29/18 at 11:38; Status DC Insulin Human Regular 150 unit/ Sodium Chloride 151.5 ml @ 1 mls/hr CONT PRN IV SEE I/O RECORD; Start 09/29/18 at 11:45; Status Cancel Propofol 50 ml @ As Directed STK-MED ONCE IV ; Start 09/29/18 at 12:04; Stop 09/29/18 at 12:05; Status DC Rocuronium Scio (Zemuron) 50 mg STK-MED ONCE .ROUTE ; Start 09/29/18 at 12:37; Stop 09/29/18 at 12:38; Status DC Lidocaine HCl (Lidocaine Pf 2% Vial) 5 ml STK-MED ONCE .ROUTE ; Start 09/29/18 at 13:17; Stop 09/29/18 at 13:18; Status DC Amiodarone HCl 900 mg/Dextrose 518 ml @ 33 mls/hr CONT PRN IV SEE I/O RECORD; Start 09/29/18 at 13:30; Stop 09/29/18 at 15:31; Status DC Epinephrine HCl (EPINEPHrine SYRINGE) 1 mg STK-MED ONCE .ROUTE ; Start 09/29/18 at 13:27; Stop 09/29/18 at 13:28; Status DC Heparin Sodium (Porcine) (Heparin Sodium) 10,000 unit STK-MED ONCE .ROUTE ; Start 09/29/18 at 13:45; Stop 09/29/18 at 13:46; Status DC Lidocaine HCl (Lidocaine Pf 2% Vial) 5 ml STK-MED ONCE .ROUTE ; Start 09/29/18 at 13:45; Stop 09/29/18 at 13:46; Status DC Magnesium Sulfate 5 gm STK-MED ONCE .ROUTE ; Start 09/29/18 at 13:45; Stop 09/29/18 at 13:46; Status DC Heparin Sodium (Porcine) 30,000 unit STK-MED ONCE .ROUTE ; Start 09/29/18 at 13:45; Stop 09/29/18 at 13:46; Status DC Mannitol (Mannitol) 12.5 g STK-MED ONCE .ROUTE ; Start 09/29/18 at 13:45; Stop 09/29/18 at 13:46; Status DC Albumin Human 100 ml @ As Directed STK-MED ONCE IV ; Start 09/29/18 at 13:45; Stop 09/29/18 at 13:46; Status DC Calcium Chloride (Calcium Chloride) 1,000 mg STK-MED ONCE .ROUTE ; Start 09/29/18 at 13:45; Stop 09/29/18 at 13:46; Status DC Sodium Bicarbonate (Sodium Bicarb Adult 8.4% Syr) 50 meq STK-MED ONCE .ROUTE ; Start 09/29/18 at 13:45; Stop 09/29/18 at 13:46; Status DC Albumin Human 500 ml @ As Directed STK-MED ONCE IV ; Start 09/29/18 at 14:05; Stop 09/29/18 at 14:06; Status DC Nicardipine HCl 50 mg/Sodium Chloride 250 ml @ 25 mls/hr CONT PRN IV SEE I/O RECORD Last administered on 09/29/18at 19:17; Start 09/29/18 at 14:45 Sodium Chloride (Normal Saline Flush) 3 ml PRN Q12HR PRN IV AFTER MEDS AND BLOOD DRAWS; Start 09/29/18 at 15:15 Ringer's Solution 1,000 ml @ 30 mls/hr Q24H IV Last administered on 09/30/18at 11:49; Start 09/29/18 at 15:14 Albumin Human 250 ml @ 500 mls/hr PRN Q4HRS PRN IV SEE COMMENTS Last administered on 09/30/18at 11:48; Start 09/29/18 at 15:15 Insulin Human Regular 150 unit/ Sodium Chloride 151.5 ml @ 0 mls/hr CONT PRN PRN IV PER PROTOCOL Last administered on 09/29/18at 15:20; Start 09/29/18 at 15:15 Dextrose (Dextrose 50%-Water Syringe) 25 gm PRN Q15MIN PRN IV LOW BLOOD SUGAR; Start 09/29/18 at 15:15 Nitroglycerin/ Dextrose 250 ml @ 0 mls/hr CONT PRN PRN IV POST CV SURGERY; Start 09/29/18 at 15:15 Phenylephrine HCl 20 mg/Sodium Chloride 252 ml @ 0 mls/hr CONT PRN PRN IV HY POTENSION; Start 09/29/18 at 15:15 Amiodarone HCl 900 mg/Dextrose 518 ml @ 0 mls/hr CONT PRN PRN IV AFIB Last administered on 09/29/18at 15:20; Start 09/29/18 at 15:15 Info (KCl Per Protocol) 1 ea CONT PRN PRN MC SEE COMMENTS; Start 09/29/18 at 15:15 Magnesium Sulfate/ Dextrose 100 ml @ 100 mls/hr PRN DAILY PRN IV FOR MAG < 2.2; Start 09/29/18 at 15:15 Famotidine (Pepcid Vial) 20 mg BID IVP Last administered on 09/30/18 08:18; Start 09/29/18 at 21:00 Ondansetron HCl (Zofran) 4 mg PRN Q4HRS PRN IV NAUSEA/VOMITING, 1st CHOICE Last administered on 09/30/18 08:18; Start 09/29/18 at 15:15 Prochlorperazine Edisylate (Compazine) 10 mg PRN Q6HRS PRN IV NAUSEA/VOMITING, 2nd CHOICE; Start 09/29/18 at 15:15 Metoclopramide HCl (Reglan Vial) 10 mg PRN Q6HRS PRN IV NAUSEA/VOMITING, 3rd CHOICE; Start 09/29/18 at 15:15 Morphine Sulfate (Morphine Sulfate) 2 mg PRN Q1HR PRN IV PAIN Last administered on 09/30/18at 04:17; Start 09/29/18 at 15:15 Morphine Sulfate (Morphine Sulfate) 4 mg PRN Q1HR PRN IV PAIN Last administered on 09/30/18 09:10; Start 09/29/18 at 15:15 Acetaminophen (Tylenol) 650 mg PRN Q4HRS PRN PO TEMP > 101'F or PAIN Last adm inistered on 09/30/18 08:18; Start 09/29/18 at 15:15 Acetaminophen (Tylenol Supp) 650 mg PRN Q4HRS PRN CA TEMP > 101'F or MILD PAIN; Start 09/29/18 at 15:15 Meperidine HCl (Demerol) 12.5 mg PRN Q15MIN PRN IV SHIVERING; Start 09/29/18 at 15:15; Stop 09/30/18 at 15:14 Propofol 100 ml @ 0 mls/hr CONT PRN PRN IV POSTOP SEDATION UNTIL EXTUBATE Last administered on 09/29/18at 17:20; Start 09/29/18 at 15:15 Senna/Docusate Sodium (Senna Plus) 1 tab BID PO Last administered on 09/30/18 08:18; Start 09/29/18 at 21:00 Bisacodyl (Dulcolax Supp) 10 mg PRN DAILY PRN CA NO BOWEL MOVEMENT; Start 09/29/18 at 15:15 Chlorhexidine Gluconate (Peridex) 15 ml BID MM ; Start 09/30/18 at 09:00 Aspirin (Ecotrin) 325 mg DAILYWBKFT PO Last administered on 09/30/18at 08:18; Start 09/30/18 at 08:00 Aspirin (Aspirin Rectal Supp) 300 mg PRN DAILY PRN CA IF UNABLE TO TAKE PO; Start 09/30/18 at 08:00 Albuterol Sulfate (Ventolin Neb Soln) 2.5 mg PRN Q4HRS PRN NEB SHORTNESS OF BREATH; Start 09/29/18 at 15:15 Metoprolol Tartrate (Lopressor) 25 mg BID PO ; Start 09/30/18 at 09:00 Nicardipine HCl 50 mg/Sodium Chloride 250 ml @ 0 mls/hr CONT PRN PRN IV PER PROTOCOL; Start 09/29/18 at 15:15; Status UNV Oxycodone HCl (Roxicodone) 5 mg PRN Q4HRS PRN PO MILD TO MODERATE PAIN Last administered on 09/29/18at 21:55; Start 09/29/18 at 15:15 Oxycodone HCl (Roxicodone) 10 mg PRN Q4HRS PRN PO SEVERE PAIN Last administered on 09/30/18at 11:47; Start 09/29/18 at 15:15 Cefazolin Sodium/ Dextrose 50 ml @ 100 mls/hr Q8H IV Last administered on 09/30/18at 11:47; Start 09/29/18 at 20:15; Stop 10/01/18 at 04:44 Sodium Bicarbonate (Sodium Bicarb Adult 8.4% Syr) 100 meq 1X ONCE IV Last administered on 09/29/18at 16:00; Start 09/29/18 at 16:00; Stop 09/29/18 at 16:01; Status DC Sodium Bicarbonate (Sodium Bicarb Adult 8.4% Syr) 50 meq STK-MED ONCE .ROUTE ; Start 09/29/18 at 15:57; Stop 09/29/18 at 15:58; Status DC Potassium Chloride/Water 50 ml @ 50 mls/hr Q1H IV Last administered on 09/29/18at 18:09; Start 09/29/18 at 17:00; Stop 09/29/18 at 18:59; Status DC Amiodarone HCl 150 mg/Dextrose 103 ml @ 618 mls/hr 1X ONCE IV Last administered on 09/29/18at 21:02; Start 09/29/18 at 21:15; Stop 09/29/18 at 21:24; Status DC Cefazolin Sodium/ Dextrose (Ancef 2gm Premix) 2 gm STK-MED ONCE IV ; Start 09/29/18 at 06:00; Stop 09/30/18 at 11:09; Status DC Furosemide (Lasix) 20 mg 1X ONCE IVP Last administered on 09/30/18at 11:46; Start 09/30/18 at 11:30; Stop 09/30/18 at 11:31; Status DC Active Scripts Active Reported Atorvastatin Calcium 40 Mg Tablet 1 Tab PO DAILY Lisinopril 10 Mg Tablet 1 Tab PO DAILY Zolpidem Tartrate 10 Mg Tablet 5 Mg PO PRN QHS PRN Allergies Allergies: Coded Allergies: No Known Drug Allergies (Unverified , 08/11/14) ROS Review of System Per HPI Physical Exam Physical Exam General: Alert, Oriented X3, No acute distress, propped up in bed HEENT: OM moist Neck Supple Lungs: Clear to auscultation Heart: S1S2, RRR, Abdomen: Soft, No tenderness, Extremities: No edema Skin: No significant lesion Neuro: Grossly normal - Edmondson+ Vital Signs Vital Signs Date Time Temp Pulse Resp B/P (MAP) Pulse Ox O2 Delivery O2 Flow Rate FiO2 09/30/18 12:42 19 99 Nasal Cannula 4.0 09/30/18 12:00 98.2 60 94/57 (69) 98.2 Assessment & Plan DOROTA - s/p cardiac cath 09/11 - Cr was 1.2 S/P CABG yesterday Cr upto 1.6 E-Lytes and acid base stable ,Supportive care, strict I/O, monitor CAD s/p CABG 09/29 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 Hypernatremia- mild Discussed a/p with pt and at bedside Labs Labs Laboratory Tests Test 09/29/18 06:22 09/29/18 08:28 09/29/18 08:29 09/29/18 09:59 Glucose (Fingerstick) 86 mg/dL (70-99) Activated Clotting Time 119 SEC (90-125) 570 SEC (90-125) Bedside Hemoglobin (Calculated) 13.3 g/dL (14-18) 12.9 g/dL (14-18) Bedside Hematocrit 39 % (37-52) 38 % (37-52) Bedside Arterial pH 7.41 (7.35-7.45) 7.33 (7.35-7.45) Bedside Arterial pCO2 33 mmHg (35-45) 42 mmHg (35-45) Bedside Arterial pO2 110 mmHg (75-100) 109 mmHg (75-100) Bedside Arterial HCO3 21 mmol/L (21-28) 22 mmol/L (21-28) Bedside Arterial Total CO2 22 mmol/L (21-32) 23 mmol/L (21-32) Arterial Bld O2 Saturation (Measur) 98 % (95-99) 98 % (95-99) Bedside Arterial Blood Base Excess -4 mmol/L (0-3) -4 mmol/L (0-3) Bedside FiO2 100.0 100.0 Bedside Sodium 136 mmol/L (135-145) 137 mmol/L (135-145) Bedside Potassium 4.0 mmol/L (3.5-5.0) 3.9 mmol/L (3.5-5.0) Glucose Level 113 mg/dL (70-99) 129 mg/dL (70-99) Bedside Ionized Calcium (Kamari) 1.22 mmol/L (1.13-1.32) 1.24 mmol/L (1.13-1.32) Test 09/29/18 11:17 09/29/18 11:46 09/29/18 11:47 09/29/18 12:19 Bedside Hemoglobin (Calculated) 11.2 g/dL (14-18) 11.2 g/dL (14-18) Bedside Hematocrit 33 % (37-52) 33 % (37-52) Activated Clotting Time 541 SEC (90-125) 479 SEC (90-125) 453 SEC (90-125) Bedside Arterial pH 7.38 (7.35-7.45) 7.40 (7.35-7.45) Bedside Arterial pCO2 36 mmHg (35-45) 36 mmHg (35-45) Bedside Arterial pO2 362 mmHg (75-100) 164 mmHg (75-100) Bedside Arterial HCO3 21 mmol/L (21-28) 22 mmol/L (21-28) Bedside Arterial Total CO2 22 mmol/L (21-32) 23 mmol/L (21-32) Arterial Bld O2 Saturation (Measur) 100 % (95-99) 99 % (95-99) Bedside Arterial Blood Base Excess -4 mmol/L (0-3) -2 mmol/L (0-3) Bedside FiO2 70.0 70.0 Bedside Sodium 135 mmol/L (135-145) 137 mmol/L (135-145) Bedside Potassium 5.2 mmol/L (3.5-5.0) 4.8 mmol/L (3.5-5.0) Glucose Level 153 mg/dL (70-99) 171 mg/dL (70-99) Bedside Ionized Calcium (Kamari) 1.10 mmol/L (1.13-1.32) 1.13 mmol/L (1.13-1.32) Test 09/29/18 12:47 09/29/18 12:48 09/29/18 13:21 09/29/18 13:22 Activated Clotting Time 457 SEC (90-125) 503 SEC (90-125) Bedside Hemoglobin (Calculated) 11.6 g/dL (14-18) 10.9 g/dL (14-18) Bedside Hematocrit 34 % (37-52) 32 % (37-52) Bedside Arterial pH 7.34 (7.35-7.45) 7.23 (7.35-7.45) Bedside Arterial pCO2 44 mmHg (35-45) 55 mmHg (35-45) Bedside Arterial pO2 239 mmHg (75-100) 120 mmHg (75-100) Bedside Arterial HCO3 24 mmol/L (21-28) 23 mmol/L (21-28) Bedside Arterial Total CO2 25 mmol/L (21-32) 25 mmol/L (21-32) Arterial Bld O2 Saturation (Measur) 100 % (95-99) 98 % (95-99) Bedside Arterial Blood Base Excess -2 mmol/L (0-3) -5 mmol/L (0-3) Bedside FiO2 85.0 85.0 Bedside Sodium 139 mmol/L (135-145) 138 mmol/L (135-145) Bedside Potassium 4.3 mmol/L (3.5-5.0) 4.0 mmol/L (3.5-5.0) Glucose Level 200 mg/dL (70-99) 180 mg/dL (70-99) Bedside Ionized Calcium (Kamari) 1.16 mmol/L (1.13-1.32) 1.87 mmol/L (1.13-1.32) Test 09/29/18 13:42 09/29/18 13:45 09/29/18 14:32 09/29/18 15:14 Bedside Hemoglobin (Calculated) 10.5 g/dL (14-18) 11.2 g/dL (14-18) Bedside Hematocrit 31 % (37-52) 33 % (37-52) Activated Clotting Time 122 SEC (90-125) Bedside Arterial pH 7.35 (7.35-7.45) 7.40 (7.35-7.45) Bedside Arterial pCO2 47 mmHg (35-45) 34 mmHg (35-45) Bedside Arterial pO2 374 mmHg (75-100) 154 mmHg (75-100) Bedside Arterial HCO3 26 mmol/L (21-28) 21 mmol/L (21-28) Bedside Arterial Total CO2 27 mmol/L (21-32) 22 mmol/L (21-32) Arterial Bld O2 Saturation (Measur) 100 % (95-99) 99 % (95-99) Bedside Arterial Blood Base Excess 0 mmol/L (0-3) -4 mmol/L (0-3) Bedside FiO2 100.0 100.0 Bedside Sodium 141 mmol/L (135-145) 141 mmol/L (135-145) Bedside Potassium 3.6 mmol/L (3.5-5.0) 3.7 mmol/L (3.5-5.0) Glucose Level 168 mg/dL (70-99) 140 mg/dL (70-99) Bedside Ionized Calcium (Kamari) 1.60 mmol/L (1.13-1.32) 1.44 mmol/L (1.13-1.32) White Blood Count 12.6 x10^3/uL (4.0-11.0) Hemoglobin 10.9 g/dL (13.0-17.5) Hematocrit 32.1 % (39.0-53.0) Platelet Count 123 x10^3/uL (140-400) Prothrombin Time 17.9 SEC (11.7-14.0) Prothromb Time International Ratio 1.5 (0.8-1.1) Activated Partial Thromboplast Time 29 SEC (24-38) Fibrinogen 266 mg/dL (200-440) O2 Saturation 99 % (92-99) Arterial Blood pH 7.31 (7.35-7.45) Arterial Blood pCO2 at Patient Temp 39 mmHg (35-46) Arterial Blood pO2 at Patient Temp 269 mmHg (65-108) Arterial Blood HCO3 20 mmol/L (21-28) Arterial Blood Base Excess -6 mmol/L (-3-3) Oxyhemoglobin 98.3 % Methemoglobin 0.5 % (0.0-1.9) Carbon Monoxide, Quantitative 0.2 % (0.0-1.9) FiO2 100 Test 09/29/18 15:30 09/29/18 15:57 09/29/18 17:26 09/29/18 18:40 White Blood Count 9.9 x10^3/uL (4.0-11.0) Red Blood Count 3.96 x10^6/uL (4.30-5.70) Hemoglobin 12.1 g/dL (13.0-17.5) Hematocrit 35.8 % (39.0-53.0) Mean Corpuscular Volume 91 fL (79-100) Mean Corpuscular Hemoglobin 30 pg (25-35) Mean Corpuscular Hemoglobin Concent 34 g/dL (31-37) Red Cell Distribution Width 14.7 % (11.5-14.5) Platelet Count 112 x10^3/uL (140-400) Prothrombin Time 15.2 SEC (11.7-14.0) Prothromb Time International Ratio 1.2 (0.8-1.1) Activated Partial Thromboplast Time 31 SEC (24-38) Sodium Level 146 mmol/L (136-145) Potassium Level 3.8 mmol/L (3.5-5.1) Chloride Level 111 mmol/L (98-107) Carbon Dioxide Level 22 mmol/L (21-32) Anion Gap 13 (6-14) Blood Urea Nitrogen 25 mg/dL (8-26) Creatinine 1.4 mg/dL (0.7-1.3) Estimated GFR (Cockcroft-Gault) 49.4 Glucose Level 119 mg/dL (70-99) Calcium Level 9.3 mg/dL (8.5-10.1) Magnesium Level 2.3 mg/dL (1.8-2.4) Glucose (Fingerstick) 98 mg/dL (70-99) 131 mg/dL (70-99) 164 mg/dL (70-99) Test 09/29/18 19:05 09/29/18 19:40 09/29/18 21:06 09/29/18 22:05 O2 Saturation 97 % (92-99) Arterial Blood pH 7.35 (7.35-7.45) Arterial Blood pCO2 at Patient Temp 39 mmHg (35-46) Arterial Blood pO2 at Patient Temp 118 mmHg (65-108) Arterial Blood HCO3 21 mmol/L (21-28) Arterial Blood Base Excess -4 mmol/L (-3-3) FiO2 40 White Blood Count 9.0 x10^3/uL (4.0-11.0) Red Blood Count 3.73 x10^6/uL (4.30-5.70) Hemoglobin 11.5 g/dL (13.0-17.5) Hematocrit 33.5 % (39.0-53.0) Mean Corpuscular Volume 90 fL (79-100) Mean Corpuscular Hemoglobin 31 pg (25-35) Mean Corpuscular Hemoglobin Concent 34 g/dL (31-37) Red Cell Distribution Width 14.5 % (11.5-14.5) Platelet Count 112 x10^3/uL (140-400) Potassium Level 4.9 mmol/L (3.5-5.1) Glucose (Fingerstick) 160 mg/dL (70-99) 107 mg/dL (70-99) 155 mg/dL (70-99) Magnesium Level 2.2 mg/dL (1.8-2.4) Test 09/29/18 23:10 09/29/18 23:56 09/30/18 01:03 09/30/18 02:05 Glucose (Fingerstick) 151 mg/dL (70-99) 147 mg/dL (70-99) 145 mg/dL (70-99) 139 mg/dL (70-99) Test 09/30/18 03:09 09/30/18 04:00 09/30/18 05:13 09/30/18 08:16 Glucose (Fingerstick) 150 mg/dL (70-99) 155 mg/dL (70-99) 142 mg/dL (70-99) White Blood Count 8.6 x10^3/uL (4.0-11.0) Red Blood Count 3.50 x10^6/uL (4.30-5.70) Hemoglobin 10.8 g/dL (13.0-17.5) Hematocrit 31.7 % (39.0-53.0) Mean Corpuscular Volume 91 fL (79-100) Mean Corpuscular Hemoglobin 31 pg (25-35) Mean Corpuscular Hemoglobin Concent 34 g/dL (31-37) Red Cell Distribution Width 14.8 % (11.5-14.5) Platelet Count 114 x10^3/uL (140-400) Sodium Level 146 mmol/L (136-145) Potassium Level 5.0 mmol/L (3.5-5.1) Chloride Level 111 mmol/L (98-107) Carbon Dioxide Level 23 mmol/L (21-32) Anion Gap 12 (6-14) Blood Urea Nitrogen 36 mg/dL (8-26) Creatinine 1.6 mg/dL (0.7-1.3) Estimated GFR (Cockcroft-Gault) 42.3 Glucose Level 165 mg/dL (70-99) Calcium Level 9.1 mg/dL (8.5-10.1) Magnesium Level 2.2 mg/dL (1.8-2.4) Test 09/30/18 10:32 09/30/18 11:58 Glucose (Fingerstick) 152 mg/dL (70-99) 159 mg/dL (70-99) Laboratory Tests Test 09/29/18 13:21 09/29/18 13:22 09/29/18 13:42 09/29/18 13:45 Activated Clotting Time 503 SEC (90-125) 122 SEC (90-125) Bedside Hemoglobin (Calculated) 10.9 g/dL (14-18) 10.5 g/dL (14-18) Bedside Hematocrit 32 % (37-52) 31 % (37-52) Bedside Arterial pH 7.23 (7.35-7.45) 7.35 (7.35-7.45) Bedside Arterial pCO2 55 mmHg (35-45) 47 mmHg (35-45) Bedside Arterial pO2 120 mmHg (75-100) 374 mmHg (75-100) Bedside Arterial HCO3 23 mmol/L (21-28) 26 mmol/L (21-28) Bedside Arterial Total CO2 25 mmol/L (21-32) 27 mmol/L (21-32) Arterial Bld O2 Saturation (Measur) 98 % (95-99) 100 % (95-99) Bedside Arterial Blood Base Excess -5 mmol/L (0-3) 0 mmol/L (0-3) Bedside FiO2 85.0 100.0 Bedside Sodium 138 mmol/L (135-145) 141 mmol/L (135-145) Bedside Potassium 4.0 mmol/L (3.5-5.0) 3.6 mmol/L (3.5-5.0) Glucose Level 180 mg/dL (70-99) 168 mg/dL (70-99) Bedside Ionized Calcium (Kamari) 1.87 mmol/L (1.13-1.32) 1.60 mmol/L (1.13-1.32) White Blood Count 12.6 x10^3/uL (4.0-11.0) Hemoglobin 10.9 g/dL (13.0-17.5) Hematocrit 32.1 % (39.0-53.0) Platelet Count 123 x10^3/uL (140-400) Prothrombin Time 17.9 SEC (11.7-14.0) Prothromb Time International Ratio 1.5 (0.8-1.1) Activated Partial Thromboplast Time 29 SEC (24-38) Fibrinogen 266 mg/dL (200-440) Test 09/29/18 14:32 09/29/18 15:14 09/29/18 15:30 09/29/18 15:57 Bedside Hemoglobin (Calculated) 11.2 g/dL (14-18) Bedside Hematocrit 33 % (37-52) Bedside Arterial pH 7.40 (7.35-7.45) Bedside Arterial pCO2 34 mmHg (35-45) Bedside Arterial pO2 154 mmHg (75-100) Bedside Arterial HCO3 21 mmol/L (21-28) Bedside Arterial Total CO2 22 mmol/L (21-32) Arterial Bld O2 Saturation (Measur) 99 % (95-99) Bedside Arterial Blood Base Excess -4 mmol/L (0-3) Bedside FiO2 100.0 Bedside Sodium 141 mmol/L (135-145) Bedside Potassium 3.7 mmol/L (3.5-5.0) Glucose Level 140 mg/dL (70-99) 119 mg/dL (70-99) Bedside Ionized Calcium (Kamari) 1.44 mmol/L (1.13-1.32) O2 Saturation 99 % (92-99) Arterial Blood pH 7.31 (7.35-7.45) Arterial Blood pCO2 at Patient Temp 39 mmHg (35-46) Arterial Blood pO2 at Patient Temp 269 mmHg (65-108) Arterial Blood HCO3 20 mmol/L (21-28) Arterial Blood Base Excess -6 mmol/L (-3-3) Oxyhemoglobin 98.3 % Methemoglobin 0.5 % (0.0-1.9) Carbon Monoxide, Quantitative 0.2 % (0.0-1.9) FiO2 100 White Blood Count 9.9 x10^3/uL (4.0-11.0) Red Blood Count 3.96 x10^6/uL (4.30-5.70) Hemoglobin 12.1 g/dL (13.0-17.5) Hematocrit 35.8 % (39.0-53.0) Mean Corpuscular Volume 91 fL (79-100) Mean Corpuscular Hemoglobin 30 pg (25-35) Mean Corpuscular Hemoglobin Concent 34 g/dL (31-37) Red Cell Distribution Width 14.7 % (11.5-14.5) Platelet Count 112 x10^3/uL (140-400) Prothrombin Time 15.2 SEC (11.7-14.0) Prothromb Time International Ratio 1.2 (0.8-1.1) Activated Partial Thromboplast Time 31 SEC (24-38) Sodium Level 146 mmol/L (136-145) Potassium Level 3.8 mmol/L (3.5-5.1) Chloride Level 111 mmol/L (98-107) Carbon Dioxide Level 22 mmol/L (21-32) Anion Gap 13 (6-14) Blood Urea Nitrogen 25 mg/dL (8-26) Creatinine 1.4 mg/dL (0.7-1.3) Estimated GFR (Cockcroft-Gault) 49.4 Calcium Level 9.3 mg/dL (8.5-10.1) Magnesium Level 2.3 mg/dL (1.8-2.4) Glucose (Fingerstick) 98 mg/dL (70-99) Test 09/29/18 17:26 09/29/18 18:40 09/29/18 19:05 09/29/18 19:40 Glucose (Fingerstick) 131 mg/dL (70-99) 164 mg/dL (70-99) 160 mg/dL (70-99) O2 Saturation 97 % (92-99) Arterial Blood pH 7.35 (7.35-7.45) Arterial Blood pCO2 at Patient Temp 39 mmHg (35-46) Arterial Blood pO2 at Patient Temp 118 mmHg (65-108) Arterial Blood HCO3 21 mmol/L (21-28) Arterial Blood Base Excess -4 mmol/L (-3-3) FiO2 40 White Blood Count 9.0 x10^3/uL (4.0-11.0) Red Blood Count 3.73 x10^6/uL (4.30-5.70) Hemoglobin 11.5 g/dL (13.0-17.5) Hematocrit 33.5 % (39.0-53.0) Mean Corpuscular Volume 90 fL (79-100) Mean Corpuscular Hemoglobin 31 pg (25-35) Mean Corpuscular Hemoglobin Concent 34 g/dL (31-37) Red Cell Distribution Width 14.5 % (11.5-14.5) Platelet Count 112 x10^3/uL (140-400) Potassium Level 4.9 mmol/L (3.5-5.1) Magnesium Level 2.2 mg/dL (1.8-2.4) Test 09/29/18 21:06 09/29/18 22:05 09/29/18 23:10 09/29/18 23:56 Glucose (Fingerstick) 107 mg/dL (70-99) 155 mg/dL (70-99) 151 mg/dL (70-99) 147 mg/dL (70-99) Test 09/30/18 01:03 09/30/18 02:05 09/30/18 03:09 09/30/18 04:00 Glucose (Fingerstick) 145 mg/dL (70-99) 139 mg/dL (70-99) 150 mg/dL (70-99) White Blood Count 8.6 x10^3/uL (4.0-11.0) Red Blood Count 3.50 x10^6/uL (4.30-5.70) Hemoglobin 10.8 g/dL (13.0-17.5) Hematocrit 31.7 % (39.0-53.0) Mean Corpuscular Volume 91 fL (79-100) Mean Corpuscular Hemoglobin 31 pg (25-35) Mean Corpuscular Hemoglobin Concent 34 g/dL (31-37) Red Cell Distribution Width 14.8 % (11.5-14.5) Platelet Count 114 x10^3/uL (140-400) Sodium Level 146 mmol/L (136-145) Potassium Level 5.0 mmol/L (3.5-5.1) Chloride Level 111 mmol/L (98-107) Carbon Dioxide Level 23 mmol/L (21-32) Anion Gap 12 (6-14) Blood Urea Nitrogen 36 mg/dL (8-26) Creatinine 1.6 mg/dL (0.7-1.3) Estimated GFR (Cockcroft-Gault) 42.3 Glucose Level 165 mg/dL (70-99) Calcium Level 9.1 mg/dL (8.5-10.1) Magnesium Level 2.2 mg/dL (1.8-2.4) Test 09/30/18 05:13 09/30/18 08:16 09/30/18 10:32 09/30/18 11:58 Glucose (Fingerstick) 155 mg/dL (70-99) 142 mg/dL (70-99) 152 mg/dL (70-99) 159 mg/dL (70-99) Review All relevant outside records, renal labs, imaging studies, telemetry/EKG's were reviewed. Images Images CxR--\ IMPRESSION: Left lung base airspace opacities likely atelectasis or infiltrate mildly increased since prior exam. VIKRAM MEDINA MD Sep 30, 2018 13:17
--- NOTE | 2018-09-30 13:19 | PDOC ---
Progress Note Subjective Subjective Fast track extubation yesterday. Doing well. Normotensive, SR with occasional PVCs (present preoperatively). Minimal tube output. A-line and Dysart-Kim have been removed. Borderline UO 20cc/hr, creat 1.6 (baseline 1.3-1.4), Hb 10.4. CXR shows reduced lung volumes. ROS ROS No nausea No vomiting No pain No rash Vital Sign Vital Signs Vital Signs Date Time Temp Pulse Resp B/P (MAP) Pulse Ox O2 Delivery O2 Flow Rate FiO2 09/30/18 12:42 19 99 Nasal Cannula 4.0 09/30/18 12:00 98.2 60 94/57 (69) 98.2 Physical Exam PHYSICAL EXAM GENERAL: NAD, Alert HEENT: PERRL, OC/OP NECK: Supple, no JVD, no LN LUNGS: rales Chest: dressing D/C/I HEART: S1S2, no gallop, no murmur ABD: Soft, NT, no organomegaly, no rebound EXT: No edema, dressings intact BRACER: Alert, oriented x 3, no focal neurologic deficit IV: ok Labs Lab Laboratory Tests Test 09/29/18 13:21 09/29/18 13:22 09/29/18 13:42 09/29/18 13:45 Activated Clotting Time 503 SEC (90-125) 122 SEC (90-125) Bedside Hemoglobin (Calculated) 10.9 g/dL (14-18) 10.5 g/dL (14-18) Bedside Hematocrit 32 % (37-52) 31 % (37-52) Bedside Arterial pH 7.23 (7.35-7.45) 7.35 (7.35-7.45) Bedside Arterial pCO2 55 mmHg (35-45) 47 mmHg (35-45) Bedside Arterial pO2 120 mmHg (75-100) 374 mmHg (75-100) Bedside Arterial HCO3 23 mmol/L (21-28) 26 mmol/L (21-28) Bedside Arterial Total CO2 25 mmol/L (21-32) 27 mmol/L (21-32) Arterial Bld O2 Saturation (Measur) 98 % (95-99) 100 % (95-99) Bedside Arterial Blood Base Excess -5 mmol/L (0-3) 0 mmol/L (0-3) Bedside FiO2 85.0 100.0 Bedside Sodium 138 mmol/L (135-145) 141 mmol/L (135-145) Bedside Potassium 4.0 mmol/L (3.5-5.0) 3.6 mmol/L (3.5-5.0) Glucose Level 180 mg/dL (70-99) 168 mg/dL (70-99) Bedside Ionized Calcium (Kamari) 1.87 mmol/L (1.13-1.32) 1.60 mmol/L (1.13-1.32) White Blood Count 12.6 x10^3/uL (4.0-11.0) Hemoglobin 10.9 g/dL (13.0-17.5) Hematocrit 32.1 % (39.0-53.0) Platelet Count 123 x10^3/uL (140-400) Prothrombin Time 17.9 SEC (11.7-14.0) Prothromb Time International Ratio 1.5 (0.8-1.1) Activated Partial Thromboplast Time 29 SEC (24-38) Fibrinogen 266 mg/dL (200-440) Test 09/29/18 14:32 09/29/18 15:14 09/29/18 15:30 09/29/18 15:57 Bedside Hemoglobin (Calculated) 11.2 g/dL (14-18) Bedside Hematocrit 33 % (37-52) Bedside Arterial pH 7.40 (7.35-7.45) Bedside Arterial pCO2 34 mmHg (35-45) Bedside Arterial pO2 154 mmHg (75-100) Bedside Arterial HCO3 21 mmol/L (21-28) Bedside Arterial Total CO2 22 mmol/L (21-32) Arterial Bld O2 Saturation (Measur) 99 % (95-99) Bedside Arterial Blood Base Excess -4 mmol/L (0-3) Bedside FiO2 100.0 Bedside Sodium 141 mmol/L (135-145) Bedside Potassium 3.7 mmol/L (3.5-5.0) Glucose Level 140 mg/dL (70-99) 119 mg/dL (70-99) Bedside Ionized Calcium (Kamari) 1.44 mmol/L (1.13-1.32) O2 Saturation 99 % (92-99) Arterial Blood pH 7.31 (7.35-7.45) Arterial Blood pCO2 at Patient Temp 39 mmHg (35-46) Arterial Blood pO2 at Patient Temp 269 mmHg (65-108) Arterial Blood HCO3 20 mmol/L (21-28) Arterial Blood Base Excess -6 mmol/L (-3-3) Oxyhemoglobin 98.3 % Methemoglobin 0.5 % (0.0-1.9) Carbon Monoxide, Quantitative 0.2 % (0.0-1.9) FiO2 100 White Blood Count 9.9 x10^3/uL (4.0-11.0) Red Blood Count 3.96 x10^6/uL (4.30-5.70) Hemoglobin 12.1 g/dL (13.0-17.5) Hematocrit 35.8 % (39.0-53.0) Mean Corpuscular Volume 91 fL (79-100) Mean Corpuscular Hemoglobin 30 pg (25-35) Mean Corpuscular Hemoglobin Concent 34 g/dL (31-37) Red Cell Distribution Width 14.7 % (11.5-14.5) Platelet Count 112 x10^3/uL (140-400) Prothrombin Time 15.2 SEC (11.7-14.0) Prothromb Time International Ratio 1.2 (0.8-1.1) Activated Partial Thromboplast Time 31 SEC (24-38) Sodium Level 146 mmol/L (136-145) Potassium Level 3.8 mmol/L (3.5-5.1) Chloride Level 111 mmol/L (98-107) Carbon Dioxide Level 22 mmol/L (21-32) Anion Gap 13 (6-14) Blood Urea Nitrogen 25 mg/dL (8-26) Creatinine 1.4 mg/dL (0.7-1.3) Estimated GFR (Cockcroft-Gault) 49.4 Calcium Level 9.3 mg/dL (8.5-10.1) Magnesium Level 2.3 mg/dL (1.8-2.4) Glucose (Fingerstick) 98 mg/dL (70-99) Test 09/29/18 17:26 09/29/18 18:40 09/29/18 19:05 09/29/18 19:40 Glucose (Fingerstick) 131 mg/dL (70-99) 164 mg/dL (70-99) 160 mg/dL (70-99) O2 Saturation 97 % (92-99) Arterial Blood pH 7.35 (7.35-7.45) Arterial Blood pCO2 at Patient Temp 39 mmHg (35-46) Arterial Blood pO2 at Patient Temp 118 mmHg (65-108) Arterial Blood HCO3 21 mmol/L (21-28) Arterial Blood Base Excess -4 mmol/L (-3-3) FiO2 40 White Blood Count 9.0 x10^3/uL (4.0-11.0) Red Blood Count 3.73 x10^6/uL (4.30-5.70) Hemoglobin 11.5 g/dL (13.0-17.5) Hematocrit 33.5 % (39.0-53.0) Mean Corpuscular Volume 90 fL (79-100) Mean Corpuscular Hemoglobin 31 pg (25-35) Mean Corpuscular Hemoglobin Concent 34 g/dL (31-37) Red Cell Distribution Width 14.5 % (11.5-14.5) Platelet Count 112 x10^3/uL (140-400) Potassium Level 4.9 mmol/L (3.5-5.1) Magnesium Level 2.2 mg/dL (1.8-2.4) Test 09/29/18 21:06 09/29/18 22:05 09/29/18 23:10 09/29/18 23:56 Glucose (Fingerstick) 107 mg/dL (70-99) 155 mg/dL (70-99) 151 mg/dL (70-99) 147 mg/dL (70-99) Test 09/30/18 01:03 09/30/18 02:05 09/30/18 03:09 09/30/18 04:00 Glucose (Fingerstick) 145 mg/dL (70-99) 139 mg/dL (70-99) 150 mg/dL (70-99) White Blood Count 8.6 x10^3/uL (4.0-11.0) Red Blood Count 3.50 x10^6/uL (4.30-5.70) Hemoglobin 10.8 g/dL (13.0-17.5) Hematocrit 31.7 % (39.0-53.0) Mean Corpuscular Volume 91 fL (79-100) Mean Corpuscular Hemoglobin 31 pg (25-35) Mean Corpuscular Hemoglobin Concent 34 g/dL (31-37) Red Cell Distribution Width 14.8 % (11.5-14.5) Platelet Count 114 x10^3/uL (140-400) Sodium Level 146 mmol/L (136-145) Potassium Level 5.0 mmol/L (3.5-5.1) Chloride Level 111 mmol/L (98-107) Carbon Dioxide Level 23 mmol/L (21-32) Anion Gap 12 (6-14) Blood Urea Nitrogen 36 mg/dL (8-26) Creatinine 1.6 mg/dL (0.7-1.3) Estimated GFR (Cockcroft-Gault) 42.3 Glucose Level 165 mg/dL (70-99) Calcium Level 9.1 mg/dL (8.5-10.1) Magnesium Level 2.2 mg/dL (1.8-2.4) Test 09/30/18 05:13 09/30/18 08:16 09/30/18 10:32 09/30/18 11:58 Glucose (Fingerstick) 155 mg/dL (70-99) 142 mg/dL (70-99) 152 mg/dL (70-99) 159 mg/dL (70-99) Objective Assessment POD#1, s/p CABG x 4 (JONES to LAD, radial to OM, SVG to RPDA, SVG to RPL) Fast track extubation yesterday. Doing well. Normotensive, SR with occasional PVCs (present preoperatively). Minimal tube output. A-line and Dysart-Kim have been removed. Borderline UO 20cc/hr, creat 1.6 (baseline 1.3-1.4), Hb 10.4. CXR shows reduced lung volumes. Plan Plan of Care D/c mediastinal tubes D/c insulin drip, switch to sliding scale Switch amiodarone drip to po amiodarone 200mg BID Give 20mg Lasix, if no response, will need bigger dose (60mg) Nephrology consult given hx of nephrectomy mild CRF and small bump in creatinine Pulmonary toilet and incentive spirometry Keep pacer backup at 50 RANJAN FONTAINE MD Sep 30, 2018 13:19
[2018-09-30] MEDS ORDERED: IPRATRPIUM/ALBUTEROL 0.5/2.5MG 3 ML NEBU. NEB ONE (14:00)
[2018-09-30] MEDS ORDERED: DEXTROSE 50% 25 GM / 50ML DISP.SYRIN. IV PRN (14:00)
[2018-09-30] MEDS: AMIODARONE HCL 200 MG TABLET. PO SCH ×2 (14:09→20:41)
[2018-09-30 14:10] LABS: CHOLESTEROL/HDL RATIO 4.1
[2018-09-30 17:22] LABS: CALCIUM 8.7 mg/dL (8.5-10.1); CREATININE 2.5 mg/dL (0.7-1.3); GFR 25.3; POTASSIUM 5.2 mmol/L (3.5-5.1)
[2018-09-30] MEDS: INSULIN LISPRO 300 UNITS/3 ML INSULN.PEN. SQ SCH (17:42)
[2018-09-30] MEDS ORDERED: INSULIN GLARGINE 300 UNITS/3 ML INSULN.PEN. SQ ONE (18:15)
[2018-09-30] MEDS ORDERED: FUROSEMIDE 40 MG/4 ML VIAL. IVP ONE (18:30)
--- NOTE | 2018-09-30 18:34 | NUR ---
Orders received to remove mediastinal chest tubes, start PO Amiodarone, start sliding scale insulin from Dr. Scott. RN notified Dr. Scott upon rounding of urine output-- 20 mg of Lasix given earlier this morning. Order received to consult Nephrology. RN spoke with Dr. Rice. No new orders received. CT removed, patient tolerated well. Dressing changed. Labs drawn, RN called Dr. Scott to notify of u/o, kidney function. Order received to give 60mg Lasix, Start Dopamine at 2.5 mcg/kg/min. and to recheck K at 2300. Order also received to given patient 10 U Lantus x1. See assessments, VS.
[2018-09-30] MEDS ORDERED: NOREPINEPHRIN 8MG/250ML PREMIX 250 ML IV PRN (19:00)
[2018-09-30] MEDS: IV NORMAL SALINE 1000ML BAG 1,000 ML IV SCH (20:40)
--- NOTE | 2018-09-30 20:50 | NUR ---
At 1899, Dr. Scott ordered Levophed and to turn off the Dopamine. The Dopamine was turned off and Levophed scanned, then patient requested to transfer from the chair to the bed. After transfer, the Levophed was not necessary so was placed on hold. At 2024, called Dr. Scott requesting Xanax due to mild anxiety and restlessness the patient was feeling, orders received. Also updated Dr. Scott on patient condition, including not needing the Levophed at this time and current urine output, orders received to start maintenance IV fluids, but call nephrology for their recommendation on type of fluids. Nephrology was called, updated on most recent BMP and oliguria, received the orders to start NS at 75 mls/hour. Will continue to monitor.
[2018-09-30] MEDS ORDERED: ALPRAZolam 0.25 MG TABLET PO ONE (21:00)
[2018-10-01] VITALS (23 sets, daily range): BP systolic 93–125; BP diastolic 39–66
[2018-10-01] MEDS: oxyCODONE IR 5 MG TABLET PO PRN ×4 (03:47→17:56)
[2018-10-01 05:43] LABS: HEMATOCRIT 28.4 % (39.0-53.0); HEMOGLOBIN 9.5 g/dL (13.0-17.5); RED BLOOD COUNT 3.09 x10^6/uL (4.30-5.70); WHITE BLOOD COUNT 10.5 x10^3/uL (4.0-11.0)
[2018-10-01 06:23] LABS: CALCIUM 8.4 mg/dL (8.5-10.1); CREATININE 2.8 mg/dL (0.7-1.3); GFR 22.2; MAGNESIUM 2.3 mg/dL (1.8-2.4); POTASSIUM 5.3 mmol/L (3.5-5.1)
[2018-10-01] MEDS: INSULIN LISPRO 300 UNITS/3 ML INSULN.PEN. SQ SCH ×3 (08:00→16:27)
--- NOTE | 2018-10-01 08:25 | RAD ---
PORTABLE CHEST 1V History: Status post coronary artery bypass graft Comparison: September 30, 2018 Findings: Single view of the chest is submitted. There again has been median sternotomy. There is again right internal jugular vascular sheath. Pericardial cardiac silhouette is enlarged although similar. There is a similar degree of nonspecific mediastinal widening. There is again left chest tube. No pneumothorax is identified. There is again small pleural effusion with adjacent airspace opacity, also perihilar opacity bilaterally similar. There is also suspected right base atelectasis, trace right pleural effusion not excluded. Impression: 1. Radiographic findings are similar, persistent bibasilar airspace opacity greater on the left and small left pleural effusion. There is a similar degree of nonspecific widening of the mediastinum. Pericardial cardiac silhouette is enlarged. Electronically signed by: Jorge Trammell MD (10/01/2018 8:22 AM) [id number]
[2018-10-01] MEDS: ASPIRIN ENTERIC COATED 325 MG TABLET.DR. PO SCH (08:32)
[2018-10-01] MEDS: FAMOTIDINE 20 MG/2 ML VIAL IVP SCH ×2 (08:32→20:53)
[2018-10-01] MEDS: ACETAMINOPHEN 325 MG TABLET. PO PRN ×3 (08:32→17:56)
[2018-10-01] MEDS: SENNOSIDES/DOCUSATE 8.6/50MG TABLET. PO SCH ×2 (08:33→20:52)
[2018-10-01] MEDS: AMIODARONE HCL 200 MG TABLET. PO SCH ×2 (08:34→20:53)
[2018-10-01] MEDS: METOPROLOL TART IMMED RELEASE 25 MG TABLET. PO SCH (09:00)
--- NOTE | 2018-10-01 09:22 | PDOC ---
SUBJECTIVE ROS Sitting up in chair, No complaints OBJECTIVE Vital Signs Vital Signs Date Time Temp Pulse Resp B/P (MAP) Pulse Ox O2 Delivery O2 Flow Rate FiO2 10/01/18 09:00 73 20 109/65 (80) 95 Nasal Cannula 4.0 10/01/18 07:00 98.0 98.0 I & 0 Intake and Output 10/01/18 07:00 Intake Total 3333.3 ml Output Total 985 ml Balance 2348.3 ml Intake Oral 1150 ml IV Total 2183.3 ml Output Urine Total 725 ml Chest Tube Drainage Total 260 ml PHYSICAL EXAM Physical Exam General: Alert, Oriented X3, No acute distress HEENT: OM moist , o2 by NC Neck Supple Lungs: Clear to auscultation Heart: S1S2, RRR, Abdomen: Soft, No tenderness, Extremities: No edema Skin: No significant lesion Neuro: Grossly normal - Edmondson+ Chest tube + DIAGNOSIS/ASSESSMENT Assessment & Plan [place] -ATN s/p cardiac cath 09/11 - Cr was 1.2 S/P CABG 09/29, IV lasix - worsening renal function Called by RN last night, decreased UOP, started IVF, UOP improved Get renal US ,IVF, Supportive care, strict I/O, monitor Hyperkalemia- mild CAD s/p CABG 09/29 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 Renal US Hypernatremia- Normal Anemia- Hgb decreasing Per primary Discussed a/p with pt and at bedside Dw RN COMMENT/RELEVANT DATA Meds Current Medications Medications (Trade) Dose Ordered Sig/Claudio Start Time Stop Time Status Last Admin Dose Admin Acetaminophen (Tylenol Supp) 650 mg PRN Q4HRS PRN 09/29/18 15:15 Acetaminophen (Tylenol) 650 mg PRN Q4HRS PRN 09/29/18 15:15 10/01/18 08:32 650 MG Albumin Human 250 ml @ 500 mls/hr PRN Q4HRS PRN 09/29/18 15:15 09/30/18 11:48 500 MLS/HR Albuterol Sulfate (Ventolin Neb Soln) 2.5 mg PRN Q4HRS PRN 09/29/18 15:15 09/30/18 17:13 2.5 MG Albuterol/ Ipratropium (Duoneb) 3 ml 1X ONCE 09/30/18 14:00 09/30/18 14:01 DC 09/30/18 14:05 3 ML Alprazolam (Xanax) 0.25 mg 1X ONCE 09/30/18 21:00 09/30/18 21:01 DC 09/30/18 20:40 0.25 MG Aminocaproic Acid (Amicar) 5,000 mg STK-MED ONCE 09/29/18 11:37 09/29/18 11:38 DC Amiodarone HCl (Cordarone) 200 mg BID 09/30/18 15:00 10/01/18 08:34 200 MG Amiodarone HCl 150 mg/Dextrose 103 ml @ 618 mls/hr 1X ONCE 09/29/18 21:15 09/29/18 21:24 DC 09/29/18 21:02 618 MLS/HR Amiodarone HCl 900 mg/Dextrose 518 ml @ 0 mls/hr CONT PRN PRN 09/29/18 15:15 09/29/18 15:20 16.7 MLS/HR Aspirin (Aspirin Rectal Supp) 300 mg PRN DAILY PRN 09/30/18 08:00 Aspirin (Ecotrin) 325 mg [id number] 09/30/18 08:00 10/01/18 08:32 325 MG Atorvastatin Calcium (Lipitor) 40 mg QHS 10/01/18 21:00 Bisacodyl (Dulcolax Supp) 10 mg PRN DAILY PRN 09/29/18 15:15 Calcium Chloride (Calcium Chloride) 1,000 mg STK-MED ONCE 09/29/18 13:45 09/29/18 13:46 DC Cefazolin Sodium (Ancef) 1 gm STK-MED ONCE 09/29/18 08:43 09/29/18 08:44 DC Cefazolin Sodium 1 gm/Sodium Chloride 500 ml @ 500 mls/hr 1X ONCE 09/29/18 06:00 09/29/18 07:00 DC 09/29/18 08:41 Cefazolin Sodium/ Dextrose (Ancef 2gm Premix) 2 gm STK-MED ONCE 09/29/18 06:00 09/30/18 11:09 DC Cellulose (Surgicel Hemostat 4x8) 1 each STK-MED ONCE 09/29/18 05:54 09/29/18 06:54 DC 09/29/18 08:41 1 EACH Chlorhexidine Gluconate (Peridex) 15 ml BID 09/30/18 09:00 09/30/18 20:56 DC Dexamethasone Sodium Phosphate (Decadron) 20 mg STK-MED ONCE 09/29/18 09:29 09/29/18 09:30 DC Dextrose (Dextrose 50%-Water Syringe) 12.5 gm PRN Q15MIN PRN 09/30/18 14:00 Dopamine HCl/ Dextrose 250 ml @ 0 mls/hr CONT PRN 09/30/18 18:00 09/30/18 18:15 9.3 MLS/HR Ephedrine Sulfate (ePHEDrine PF IN SALINE SYRINGE) 50 mg STK-MED ONCE 09/29/18 06:24 09/29/18 06:25 DC Epinephrine HCl (EPINEPHrine SYRINGE) 1 mg STK-MED ONCE 09/29/18 13:27 09/29/18 13:28 DC Etomidate (Amidate) 20 mg STK-MED ONCE 09/29/18 06:24 09/29/18 06:25 DC Famotidine (Pepcid Vial) 20 mg BID 09/29/18 21:00 10/01/18 08:32 20 MG Fentanyl Citrate (Fentanyl 2ml Vial) 100 mcg STK-MED ONCE 09/29/18 07:05 09/29/18 07:06 DC Furosemide (Lasix) 60 mg 1X ONCE 09/30/18 18:30 09/30/18 18:31 DC 09/30/18 18:12 60 MG Heparin Sodium (Porcine) 30,000 unit STK-MED ONCE 09/29/18 13:45 09/29/18 13:46 DC Heparin Sodium (Porcine) (Heparin Sodium) 10,000 unit STK-MED ONCE 09/29/18 13:45 09/29/18 13:46 DC Heparin Sodium (Porcine) 23768 unit/Ringer's Solution 1,020 ml @ 1,020 mls/hr 1X ONCE 09/29/18 06:00 09/29/18 07:00 DC 09/29/18 08:41 Heparin Sodium (Porcine) 800 unit/ Nitroglycerin 4 mg/Verapamil HCl 8 mg/Sodium Bicarbonate 0.34 meq/Ringer's Solution 512.34 ml @ 512.34 mls/hr 1X ONCE 09/29/18 06:00 09/29/18 07:00 DC 09/29/18 08:31 Hydromorphone HCl (Dilaudid) 0.5 mg PRN Q10MIN PRN 09/29/18 07:00 09/30/18 06:59 DC Info (KCl Per Protocol) 1 ea CONT PRN PRN 09/29/18 15:15 Insulin Glargine (Lantus) 10 units 1X ONCE 09/30/18 18:15 09/30/18 18:16 DC 09/30/18 20:42 10 UNITS Insulin Human Lispro (HumaLOG) 0-5 UNITS TIDWMEALS 09/30/18 17:00 09/30/18 17:42 3 UNITS Insulin Human Regular 150 unit/ Sodium Chloride 151.5 ml @ 0 mls/hr CONT PRN PRN 09/29/18 15:15 09/29/18 15:20 2 MLS/HR Lidocaine HCl (Lidocaine Pf 2% Vial) 5 ml STK-MED ONCE 09/29/18 13:45 09/29/18 13:46 DC Lidocaine HCl (Xylocaine-Mpf 1% 2ml Vial) 2 ml PRN 1X PRN 09/29/18 07:00 09/30/18 06:59 DC Magnesium Sulfate 5 gm STK-MED ONCE 09/29/18 13:45 09/29/18 13:46 DC Magnesium Sulfate/ Dextrose 100 ml @ 100 mls/hr PRN DAILY PRN 09/29/18 15:15 Mannitol (Mannitol) 12.5 g STK-MED ONCE 09/29/18 13:45 09/29/18 13:46 DC Meperidine HCl (Demerol) 12.5 mg PRN Q15MIN PRN 09/29/18 15:15 09/30/18 15:14 DC Metoclopramide HCl (Reglan Vial) 10 mg PRN Q6HRS PRN 09/29/18 15:15 Metoprolol Tartrate (Lopressor) 25 mg BID 09/30/18 09:00 Midazolam HCl (Versed) 2 mg STK-MED ONCE 09/29/18 06:27 09/29/18 06:28 DC Morphine Sulfate (Morphine Sulfate) 4 mg PRN Q1HR PRN 09/29/18 15:15 09/30/18 09:10 4 MG Nicardipine HCl 50 mg/Sodium Chloride 250 ml @ 0 mls/hr CONT PRN PRN 09/29/18 15:15 UNV Nitroglycerin/ Dextrose 250 ml @ 0 mls/hr CONT PRN PRN 09/29/18 15:15 Norepinephrine Bitartrate 250 ml @ 17.605 mls/ hr CONT PRN 09/30/18 19:00 09/30/18 19:09 8.803 MLS/HR Ondansetron HCl (Zofran) 4 mg PRN Q4HRS PRN 09/29/18 15:15 09/30/18 18:25 4 MG Oxycodone HCl (Roxicodone) 10 mg PRN Q4HRS PRN 09/29/18 15:15 10/01/18 08:33 10 MG Papaverine HCl 60 mg STK-MED ONCE 09/29/18 05:54 09/29/18 06:54 DC 09/29/18 08:41 60 MG Phenylephrine HCl (Clarence-Synephrine Inj) 10 mg STK-MED ONCE 09/29/18 06:24 09/29/18 06:25 DC Phenylephrine HCl 20 mg/Sodium Chloride 252 ml @ 0 mls/hr CONT PRN PRN 09/29/18 15:15 Potassium Chloride 15 meq/ Sodium Bicarbonate 12.5 meq/Parenteral Electrolytes 520 ml @ 520 mls/hr 1X ONCE 09/29/18 06:00 09/29/18 07:00 DC 09/29/18 11:04 520 MLS/HR Potassium Chloride 70 meq/ Sodium Bicarbonate 12.5 meq/Lidocaine HCl 24 ml/Parenteral Electrolytes 571.5 ml @ 571.5 mls/ hr 1X ONCE 09/29/18 06:00 09/29/18 07:00 DC 09/29/18 11:04 571.5 MLS/HR Potassium Chloride/Water 50 ml @ 50 mls/hr Q1H 09/29/18 17:00 09/29/18 18:59 DC 09/29/18 18:09 50 MLS/HR Prochlorperazine Edisylate (Compazine) 10 mg PRN Q6HRS PRN 09/29/18 15:15 Propofol 100 ml @ 0 mls/hr CONT PRN PRN 09/29/18 15:15 09/29/18 17:20 10 MLS/HR Protamine Sulfate (Protamine) 250 mg STK-MED ONCE 09/29/18 08:43 09/29/18 08:44 DC Ringer's Solution 1,000 ml @ 30 mls/hr Q24H 09/29/18 15:14 09/30/18 20:56 DC 09/30/18 11:49 30 MLS/HR Rocuronium [place] (Zemuron) 50 mg STK-MED ONCE 09/29/18 12:37 09/29/18 12:38 DC Senna/Docusate Sodium (Senna Plus) 1 tab BID 09/29/18 21:00 10/01/18 08:33 1 TAB Sodium Bicarbonate (Sodium Bicarb Adult 8.4% Syr) 50 meq STK-MED ONCE 09/29/18 15:57 09/29/18 15:58 DC Sodium Chloride 1,000 ml @ 75 mls/hr [id number] 09/30/18 20:45 09/30/18 20:40 75 MLS/HR Sodium Chloride (Normal Saline Flush) 3 ml PRN Q12HR PRN 09/29/18 15:15 Sodium Chloride (SODIUM CHLORIDE 20ml) 20 ml STK-MED ONCE 09/29/18 05:56 09/29/18 06:56 DC 09/29/18 08:41 20 ML Sufentanil Citrate (Sufenta) 250 mcg STK-MED ONCE 09/29/18 06:26 09/29/18 06:27 DC Vancomycin HCl (VANCO for OR ONLY) 10 gm STK-MED ONCE 09/29/18 05:54 09/29/18 06:54 DC 09/29/18 08:41 10 GM Lab Laboratory Tests Test 09/30/18 10:32 09/30/18 11:58 09/30/18 16:45 09/30/18 18:25 Glucose (Fingerstick) 152 mg/dL (70-99) 159 mg/dL (70-99) 192 mg/dL (70-99) Sodium Level 141 mmol/L (136-145) Potassium Level 5.2 mmol/L (3.5-5.1) Chloride Level 105 mmol/L (98-107) Carbon Dioxide Level 23 mmol/L (21-32) Anion Gap 13 (6-14) Blood Urea Nitrogen 47 mg/dL (8-26) Creatinine 2.5 mg/dL (0.7-1.3) Estimated GFR (Cockcroft-Gault) 25.3 Glucose Level 231 mg/dL (70-99) Calcium Level 8.7 mg/dL (8.5-10.1) Magnesium Level 2.2 mg/dL (1.8-2.4) Test 09/30/18 23:00 10/01/18 05:35 10/01/18 08:44 Potassium Level 5.4 mmol/L (3.5-5.1) 5.3 mmol/L (3.5-5.1) White Blood Count 10.5 x10^3/uL (4.0-11.0) Red Blood Count 3.09 x10^6/uL (4.30-5.70) Hemoglobin 9.5 g/dL (13.0-17.5) Hematocrit 28.4 % (39.0-53.0) Mean Corpuscular Volume 92 fL (79-100) Mean Corpuscular Hemoglobin 31 pg (25-35) Mean Corpuscular Hemoglobin Concent 33 g/dL (31-37) Red Cell Distribution Width 15.0 % (11.5-14.5) Platelet Count 101 x10^3/uL (140-400) Sodium Level 141 mmol/L (136-145) Chloride Level 106 mmol/L (98-107) Carbon Dioxide Level 24 mmol/L (21-32) Anion Gap 11 (6-14) Blood Urea Nitrogen 55 mg/dL (8-26) Creatinine 2.8 mg/dL (0.7-1.3) Estimated GFR (Cockcroft-Gault) 22.2 Glucose Level 166 mg/dL (70-99) Calcium Level 8.4 mg/dL (8.5-10.1) Magnesium Level 2.3 mg/dL (1.8-2.4) Glucose (Fingerstick) 112 mg/dL (70-99) Results All relevant outside records, renal labs, imaging studies, telemetry/EKG's were reviewed. Other CxR- 1. Radiographic findings are similar, persistent bibasilar airspace opacity greater on the left and small left pleural effusion. There is a similar degree of nonspecific widening of the mediastinum. Pericardial cardiac silhouette is enlarged. VIKRAM MEDINA MD Oct 01, 2018 09:22
--- NOTE | 2018-10-01 09:59 | PN ---
DATE: 10/01/2018 DAILY PROGRESS NOTE SUBJECTIVE: The patient is awake, alert, lying in bed, voices no significant complaints. He is concerned as one of the nurses told him she had overheard his phone call with his that they are listening on the phone out at the nurse's station, which I reassured him is not. He does not have a significant amount of pain this morning except when he tries to lie down at the chest tube site. OBJECTIVE: VITAL SIGNS: Stable. He is afebrile. O2 is at 4 liters per nasal cannula. Intake has been greater than output. CHEST: Reveals somewhat diminished breath sounds, but clear. Chest tubes are in place. HEART: Regular rate and rhythm. I hear no rub this morning. ABDOMEN: Soft, nontender, without hepatosplenomegaly or mass. EXTREMITIES: Without cyanosis, clubbing, edema. NEUROLOGIC: Intact. IMPRESSION: 1. Status post coronary artery bypass grafting. 2. Acute kidney injury. 3. Postoperative anemia. PLAN: Help of all consultants appreciated. I would expect kidney dysfunction to resolve and hopefully the patient will not need dialysis. Otherwise, I have encouraged him to be as active as he can. PAM BELLO MD DR: GILBERT/luis JOB#: [id number] / [id number]
[2018-10-01] MEDS: IV NORMAL SALINE 1000ML BAG 1,000 ML IV SCH (11:08)
--- NOTE | 2018-10-01 12:36 | PDOC ---
[facility] CONSULTANT 10/01/18 1236: CARDIO Progress Notes Date and Time Date of Service 10/01/2018 Time of Evaluation 1200 Subjective Subjective: No Chest Pain, No shortness of breath, No Palpitations, Other (surgical pain controlled) Vitals Vitals Vital Signs Date Time Temp Pulse Resp B/P (MAP) Pulse Ox O2 Delivery O2 Flow Rate FiO2 10/01/18 12:00 74 20 102/59 (73) 93 Nasal Cannula 4.0 10/01/18 11:00 98.0 98.0 Weight Weight [ ] Input and Output Intake and Output Intake and Output 10/01/18 07:00 Intake Total 3333.3 ml Output Total 985 ml Balance 2348.3 ml Intake Oral 1150 ml IV Total 2183.3 ml Output Urine Total 725 ml Chest Tube Drainage Total 260 ml Laboratory Labs Laboratory Tests Test 09/30/18 16:45 09/30/18 18:25 09/30/18 23:00 10/01/18 05:35 Sodium Level 141 mmol/L (136-145) 141 mmol/L (136-145) Potassium Level 5.2 mmol/L (3.5-5.1) 5.4 mmol/L (3.5-5.1) 5.3 mmol/L (3.5-5.1) Chloride Level 105 mmol/L (98-107) 106 mmol/L (98-107) Carbon Dioxide Level 23 mmol/L (21-32) 24 mmol/L (21-32) Anion Gap 13 (6-14) 11 (6-14) Blood Urea Nitrogen 47 mg/dL (8-26) 55 mg/dL (8-26) Creatinine 2.5 mg/dL (0.7-1.3) 2.8 mg/dL (0.7-1.3) Estimated GFR (Cockcroft-Gault) 25.3 22.2 Glucose Level 231 mg/dL (70-99) 166 mg/dL (70-99) Calcium Level 8.7 mg/dL (8.5-10.1) 8.4 mg/dL (8.5-10.1) Magnesium Level 2.2 mg/dL (1.8-2.4) 2.3 mg/dL (1.8-2.4) Glucose (Fingerstick) 192 mg/dL (70-99) White Blood Count 10.5 x10^3/uL (4.0-11.0) Red Blood Count 3.09 x10^6/uL (4.30-5.70) Hemoglobin 9.5 g/dL (13.0-17.5) Hematocrit 28.4 % (39.0-53.0) Mean Corpuscular Volume 92 fL (79-100) Mean Corpuscular Hemoglobin 31 pg (25-35) Mean Corpuscular Hemoglobin Concent 33 g/dL (31-37) Red Cell Distribution Width 15.0 % (11.5-14.5) Platelet Count 101 x10^3/uL (140-400) Test 10/01/18 08:44 10/01/18 12:18 Glucose (Fingerstick) 112 mg/dL (70-99) 156 mg/dL (70-99) Physical Exam HEENT: Neck Supple W Full Motion Chest: Symmetric LUNGS: Other (diminished bases) Heart: S1S2, RRR (SR) Abdomen: Soft N/T Extremities: Other (trace LE edema) Neurology: alert, oriented, follow commands Other Exams LA, bilateral LE and mid chest incision, well approximated D/!, DRAG SEINER Assessment Assessment 1. 3VD: S/P CABG x 4 (JONES to LAD, radial to OM, SVG to RPL, SVG to RPDA) POD#2 2. HTN: controlled 4. HLP 5. DOROTA on CKD3/mild hyperkalemia: with past right nephrectomy from renal CA. Cr worse 2.8. Nephrology following 6. Obesity 7. Arrhythmia: NSVT last noc, no further recurrence 8. Moderate AI Recommendations 1. Post CABG protocol. Repeat BMP this afternoon. IVF per renal. 2. Aggressive IS, Act as edwar with rehab 3. Statin, ASA. Resume BB once BP is more adequate. Amiodarone for AFIB prophylaxis 4. Will need outpt KENDRA w/u if none done. 5. Check A1C SANDRA GARCIA MD 10/01/18 1615: CARDIO Progress Notes Assessment Assessment Patient seen and examined. Agree with PLUSH WEAVER's assessment and plan. s/p CABG, CT's out, telemetry showed paced rhythm, continue postop care per CTS Creatinine worse, nephrology following [facility] Oct 01, 2018 12:36 SANDRA GARCIA MD Oct 01, 2018 16:15
--- NOTE | 2018-10-01 13:25 | PDOC ---
Progress Note Subjective Subjective Feels well. Normotensive, SR. Minimal pleural tube output. UO 20-30cc/hr, creat up to 2.8, BUN 55, Hb 9.5. CXR shows reduced lung volumes. On iv fluids at 75mls/hr. Some serous drainage from distal aspect of radial artery harvest site. ROS ROS No nausea No vomiting No pain No rash Vital Sign Vital Signs Vital Signs Date Time Temp Pulse Resp B/P (MAP) Pulse Ox O2 Delivery O2 Flow Rate FiO2 10/01/18 12:46 20 93 Nasal Cannula 4.0 10/01/18 12:00 74 102/59 (73) 10/01/18 11:00 98.0 98.0 Physical Exam PHYSICAL EXAM GENERAL: NAD, Alert HEENT: PERRL, OC/OP NECK: Supple, no JVD, no LN LUNGS: rales Chest: dressing D/C/I HEART: S1S2, no gallop, no murmur ABD: Soft, NT, no organomegaly, no rebound EXT: Mild edema, minimal serous drainage from distal aspect of radial harvest site BONE CHAR KILN OPERATOR: Alert, oriented x 3, no focal neurologic deficit IV: ok Labs Lab Laboratory Tests Test 09/30/18 16:45 09/30/18 18:25 09/30/18 23:00 10/01/18 05:35 Sodium Level 141 mmol/L (136-145) 141 mmol/L (136-145) Potassium Level 5.2 mmol/L (3.5-5.1) 5.4 mmol/L (3.5-5.1) 5.3 mmol/L (3.5-5.1) Chloride Level 105 mmol/L (98-107) 106 mmol/L (98-107) Carbon Dioxide Level 23 mmol/L (21-32) 24 mmol/L (21-32) Anion Gap 13 (6-14) 11 (6-14) Blood Urea Nitrogen 47 mg/dL (8-26) 55 mg/dL (8-26) Creatinine 2.5 mg/dL (0.7-1.3) 2.8 mg/dL (0.7-1.3) Estimated GFR (Cockcroft-Gault) 25.3 22.2 Glucose Level 231 mg/dL (70-99) 166 mg/dL (70-99) Calcium Level 8.7 mg/dL (8.5-10.1) 8.4 mg/dL (8.5-10.1) Magnesium Level 2.2 mg/dL (1.8-2.4) 2.3 mg/dL (1.8-2.4) Glucose (Fingerstick) 192 mg/dL (70-99) White Blood Count 10.5 x10^3/uL (4.0-11.0) Red Blood Count 3.09 x10^6/uL (4.30-5.70) Hemoglobin 9.5 g/dL (13.0-17.5) Hematocrit 28.4 % (39.0-53.0) Mean Corpuscular Volume 92 fL (79-100) Mean Corpuscular Hemoglobin 31 pg (25-35) Mean Corpuscular Hemoglobin Concent 33 g/dL (31-37) Red Cell Distribution Width 15.0 % (11.5-14.5) Platelet Count 101 x10^3/uL (140-400) Test 10/01/18 08:44 10/01/18 12:18 Glucose (Fingerstick) 112 mg/dL (70-99) 156 mg/dL (70-99) Objective Assessment POD#2, s/p CABG x 4 (JONES to LAD, radial to OM, SVG to RPDA, SVG to RPL) Feels well. Normotensive, SR. Minimal pleural tube output. UO 20-30cc/hr, creat up to 2.8, BUN 55, Hb 9.5. CXR shows reduced lung volumes. On iv fluids at 75mls/hr Hx of CRF, s/p right nephrectomy Plan Plan of Care D/c pleural tube Amiodarone 200mg BID for AFib prophylaxis Nephrology following A/w renal U/s Pulmonary toilet and incentive spirometry Keep pacer backup at 50 Keep davis owing to acute on chronic renal failure Keep in ICU for renal failure management Aim for SBP>110-120 for renal perfusion, hold b-hiro for now Apply dermabond to distal aspect of radial harvest incision RANJAN FONTAINE MD Oct 01, 2018 13:25
--- NOTE | 2018-10-01 13:40 | NUR ---
left pleural tube removed as ordered by physican. pt tolerated well. cleansed and redressed pacemaker wires. pacemaker continues to be on at a rate of 50 with av ma's at 10. area on left wrist oozing red colored drainage. re-dermabonded area and new steri-strips applied as requested by dr martin. renal sono being done at bedside.
--- NOTE | 2018-10-01 13:40 | RAD ---
EXAM: Renal sonogram. HISTORY: Renal insufficiency. Nephrectomy. TECHNIQUE: Sonographic imaging of the left kidney and a right rectum event was performed. COMPARISON: None. FINDINGS: The right kidney is surgically absent. There is no suspicious finding within the right nephrectomy bed. The left kidney measures 16.4 cm [id number]. There is a prominent left renal pelvis. No solid or cystic renal lesion is seen. There is a Edmondson catheter within the bladder. IMPRESSION: 1. Enlarged left kidney, likely compensatory status post right nephrectomy. There is a prominent left renal pelvis which may be due to pelviectasis or slight hydronephrosis. 2. Edmondson catheter within the bladder. Electronically signed by: Rajani Vivas MD (10/01/2018 1:37 PM) [place] [id number]
--- NOTE | 2018-10-01 14:58 | NUR ---
spoke with dr buchanan. pt has not has only had 5 cc of urine in last 2 hours. results of kidney sonogram noted. orders received from dr buchanan. call placed to urologist for consult. When went in to flush davis catheter and repositioned pt, pt then had 75 cc of urine drain from pt without any sediment, clear yellow in color. pt denies any pain or discomfort in lower abdominal quadrants or lower/mid back. no resistance with flushing and only return of sterile water used in flushing.
--- NOTE | 2018-10-01 17:06 | PATHOLOGY ---
[facility] Accession Number: [id number] . 01 Material submitted: . chest - INCIDENTAL LIPOMA . 01 Clinical history: . Coronary artery disease . 02 Diagnosis: Segment of fibroadipose tissue, chest: - Lipoma. (JPM:jefry; 10/01/2018) MBR/10/01/2018 . 02 Electronically signed: . Kirill Leonardo MD, Pathologist NPI- [id number] . 01 Gross description: . The specimen is received in formalin, labeled "Ethan Bender, incidental lipoma chest" and consists of a disrupted segment of yellow adipose tissue measuring 2.5 x 2.2 x 1.3 cm. Sectioning reveals homogeneous yellow cut surfaces and branch service representative sections are submitted in A1. (SDY; 09/30/2018) SYU/SYU . 02 Pathologist provided ICD-10: D17.1 . 02 CPT . 531606 Specimen Comment: A courtesy copy of this report has been sent to Specimen Comment: [phone], . Specimen Comment: Report sent to / DR BELLO Performed at: 01 [facility] [address], [place] [id number] MD Bruno Cassidy MD Phone: [phone] Performed at: 02 [facility] [address] [place], [place] [id number] MD Kirill Leonardo MD Phone: [phone]
--- NOTE | 2018-10-01 17:14 | PDOC2 ---
UROLOGY CONSULT Date of Consult Date of Consult DATE: 10/01/18 TIME: 17:09 Reason for Consult Reason for Consult: left hydronephrosis Identification/Chief Complaint Chief Complaint left back pain Source Source: Chart review, Patient History of Present Illness Reason for Visit: 73 yo male s/p CABG 09/29/18. Since surgery creatinine has been increasing, now up to 2.8, baseline is 1.2. Renal ultrasound obtained today - I reviewed images, mild dilation of the left renal pelvis to 1.2 cm, absent right kidney. He has had low urine output - has increase with fluid bolus last night and then again this afternoon after oral intake. Still has davis from surgery. Had left lower back and shoulder pain earlier today but now no complaints. Davis has been somewhat positional, drain better when he is standing. Distant hx of kidney stone 25 years ago. 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 Also s/p prostatectomy. His urologist is Dr. Callejas. Past Medical History Cardiovascular: CAD, HTN, Hyperlipidemia, Valve insufficiency (mod AI) Pulmonary: No pertinent hx GI: Diverticulosis, GERD Heme/Onc: Cancer (renal) Hepatobiliary: No pertinent hx Psych: No pertinent hx Musculoskeletal: Osteoarthritis Rheumatologic: No pertinent hx Infectious disease: No pertinent hx ENT: Other ([place]) Renal/: Chronic renal insuff, UTI, Prostate Ca., Bladder Ca. Endocrine: No pertinent hx Dermatology: No pertinent hx Past Surgical History Past Surgical History: Other (right nephrectomy; prostatectomy; PCI/diagonal remotely) Family History Family History: Cancer Social History No ALCOHOL: none Drugs: None Lives: with Family Current Medications Current Medications Current Medications Alprazolam (Xanax) 0.25 mg 1X ONCE PO Last administered on 09/30/18at 20:40; S tart 09/30/18 at 21:00; Stop 09/30/18 at 21:01; Status DC Atorvastatin Calcium (Lipitor) 40 mg QHS PO ; Start 10/01/18 at 21:00 Dopamine HCl/ Dextrose 250 ml @ 0 mls/hr CONT PRN IV SEE I/O RECORD Last administered on 09/30/18at 18:15; Start 09/30/18 at 18:00 Furosemide (Lasix) 60 mg 1X ONCE IVP Last administered on 09/30/18at 18:12; Start 09/30/18 at 18:30; Stop 09/30/18 at 18:31; Status DC Insulin Glargine (Lantus) 10 units 1X ONCE SQ Last administered on 09/30/18at 20:42; Start 09/30/18 at 18:15; Stop 09/30/18 at 18:16; Status DC Norepinephrine Bitartrate 250 ml @ 17.605 mls/ hr CONT PRN IV SEE I/O RECORD Last administered on 09/30/18at 19:09; Start 09/30/18 at 19:00 Sodium Chloride 1,000 ml @ 75 mls/hr [id number] IV Last administered on 10/01/18at 11:08; Start 09/30/18 at 20:45 Allergies Allergies: Coded Allergies: No Known Drug Allergies (Unverified , 08/11/14) ROS Review Of Systems: Except as listed in HPI: CONSTITUTIONAL: No fever or chills EYES: No recent changes SKIN: No rash or itching CARDIOVASCULAR: No chest pain, syncope, palpitations, or edema RESPIRATORY: No SOB or cough GASTROINTESTINAL: No nausea, vomiting or abdominal pain NEUROLOGICAL: No headaches or weakness ENDOCRINE: No cold or heat intolerance GENITOURINARY: No urgency or frequency of urination MUSCULOSKELETAL: No back pain or joint pain LYMPHATICS: No enlarged lymph nodes PSYCHIATRIC: No anxiety or depression Physical Exam Physical Exam: General: Pleasant, no acute distress, well groomed Eyes: conjunctiva anicteric, eyes full range of motion ENT: moist oral mucosa, normal dentition Neck: Trachea midline, no masses Respiratory: unlabored breathing, not using accessory muscles, no crackles or wheezes Cardiovascular: Regular rate and rhythm, no peripheral edema Abdomen: nontender, nondistended, no hepatosplenomegaly, no masses Skin: no rashes or skin lesions on visualized skin Psych: normal mood, affect. Alert and oriented x 3. Davis in [address] draining yellow urine. Vitals VITALS Vital Signs Date Time Temp Pulse Resp B/P (MAP) Pulse Ox O2 Delivery O2 Flow Rate FiO2 10/01/18 16:00 Nasal Cannula 4.0 10/01/18 16:00 77 20 98/39 (58) 93 10/01/18 15:00 97.8 97.8 Labs Labs Laboratory Tests Test 09/29/18 17:26 09/29/18 18:40 09/29/18 19:05 09/29/18 19:40 Glucose (Fingerstick) 131 mg/dL (70-99) 164 mg/dL (70-99) 160 mg/dL (70-99) O2 Saturation 97 % (92-99) Arterial Blood pH 7.35 (7.35-7.45) Arterial Blood pCO2 at Patient Temp 39 mmHg (35-46) Arterial Blood pO2 at Patient Temp 118 mmHg (65-108) Arterial Blood HCO3 21 mmol/L (21-28) Arterial Blood Base Excess -4 mmol/L (-3-3) FiO2 40 White Blood Count 9.0 x10^3/uL (4.0-11.0) Red Blood Count 3.73 x10^6/uL (4.30-5.70) Hemoglobin 11.5 g/dL (13.0-17.5) Hematocrit 33.5 % (39.0-53.0) Mean Corpuscular Volume 90 fL (79-100) Mean Corpuscular Hemoglobin 31 pg (25-35) Mean Corpuscular Hemoglobin Concent 34 g/dL (31-37) Red Cell Distribution Width 14.5 % (11.5-14.5) Platelet Count 112 x10^3/uL (140-400) Potassium Level 4.9 mmol/L (3.5-5.1) Magnesium Level 2.2 mg/dL (1.8-2.4) Test 09/29/18 21:06 09/29/18 22:05 09/29/18 23:10 09/29/18 23:56 Glucose (Fingerstick) 107 mg/dL (70-99) 155 mg/dL (70-99) 151 mg/dL (70-99) 147 mg/dL (70-99) Test 09/30/18 01:03 09/30/18 02:05 09/30/18 03:09 09/30/18 04:00 Glucose (Fingerstick) 145 mg/dL (70-99) 139 mg/dL (70-99) 150 mg/dL (70-99) White Blood Count 8.6 x10^3/uL (4.0-11.0) Red Blood Count 3.50 x10^6/uL (4.30-5.70) Hemoglobin 10.8 g/dL (13.0-17.5) Hematocrit 31.7 % (39.0-53.0) Mean Corpuscular Volume 91 fL (79-100) Mean Corpuscular Hemoglobin 31 pg (25-35) Mean Corpuscular Hemoglobin Concent 34 g/dL (31-37) Red Cell Distribution Width 14.8 % (11.5-14.5) Platelet Count 114 x10^3/uL (140-400) Sodium Level 146 mmol/L (136-145) Potassium Level 5.0 mmol/L (3.5-5.1) Chloride Level 111 mmol/L (98-107) Carbon Dioxide Level 23 mmol/L (21-32) Anion Gap 12 (6-14) Blood Urea Nitrogen 36 mg/dL (8-26) Creatinine 1.6 mg/dL (0.7-1.3) Estimated GFR (Cockcroft-Gault) 42.3 Glucose Level 165 mg/dL (70-99) Calcium Level 9.1 mg/dL (8.5-10.1) Magnesium Level 2.2 mg/dL (1.8-2.4) Triglycerides Level 65 mg/dL (0-150) Cholesterol Level 132 mg/dL (0-200) LDL Cholesterol, Calculated 87 mg/dL (0-100) VLDL Cholesterol, Calculated 13 mg/dL (0-40) Non-HDL Cholesterol Calculated 100 mg/dL (0-129) HDL Cholesterol 32 mg/dL (40-60) Cholesterol/HDL Ratio 4.1 Test 09/30/18 05:13 09/30/18 08:16 09/30/18 10:32 09/30/18 11:58 Glucose (Fingerstick) 155 mg/dL (70-99) 142 mg/dL (70-99) 152 mg/dL (70-99) 159 mg/dL (70-99) Test 09/30/18 16:45 09/30/18 18:25 09/30/18 23:00 10/01/18 05:35 Sodium Level 141 mmol/L (136-145) 141 mmol/L (136-145) Potassium Level 5.2 mmol/L (3.5-5.1) 5.4 mmol/L (3.5-5.1) 5.3 mmol/L (3.5-5.1) Chloride Level 105 mmol/L (98-107) 106 mmol/L (98-107) Carbon Dioxide Level 23 mmol/L (21-32) 24 mmol/L (21-32) Anion Gap 13 (6-14) 11 (6-14) Blood Urea Nitrogen 47 mg/dL (8-26) 55 mg/dL (8-26) Creatinine 2.5 mg/dL (0.7-1.3) 2.8 mg/dL (0.7-1.3) Estimated GFR (Cockcroft-Gault) 25.3 22.2 Glucose Level 231 mg/dL (70-99) 166 mg/dL (70-99) Calcium Level 8.7 mg/dL (8.5-10.1) 8.4 mg/dL (8.5-10.1) Magnesium Level 2.2 mg/dL (1.8-2.4) 2.3 mg/dL (1.8-2.4) Glucose (Fingerstick) 192 mg/dL (70-99) White Blood Count 10.5 x10^3/uL (4.0-11.0) Red Blood Count 3.09 x10^6/uL (4.30-5.70) Hemoglobin 9.5 g/dL (13.0-17.5) Hematocrit 28.4 % (39.0-53.0) Mean Corpuscular Volume 92 fL (79-100) Mean Corpuscular Hemoglobin 31 pg (25-35) Mean Corpuscular Hemoglobin Concent 33 g/dL (31-37) Red Cell Distribution Width 15.0 % (11.5-14.5) Platelet Count 101 x10^3/uL (140-400) Test 10/01/18 08:44 10/01/18 12:18 10/01/18 16:23 Glucose (Fingerstick) 112 mg/dL (70-99) 156 mg/dL (70-99) 126 mg/dL (70-99) Laboratory Tests Test 09/30/18 18:25 09/30/18 23:00 10/01/18 05:35 10/01/18 08:44 Glucose (Fingerstick) 192 mg/dL (70-99) 112 mg/dL (70-99) Potassium Level 5.4 mmol/L (3.5-5.1) 5.3 mmol/L (3.5-5.1) White Blood Count 10.5 x10^3/uL (4.0-11.0) Red Blood Count 3.09 x10^6/uL (4.30-5.70) Hemoglobin 9.5 g/dL (13.0-17.5) Hematocrit 28.4 % (39.0-53.0) Mean Corpuscular Volume 92 fL (79-100) Mean Corpuscular Hemoglobin 31 pg (25-35) Mean Corpuscular Hemoglobin Concent 33 g/dL (31-37) Red Cell Distribution Width 15.0 % (11.5-14.5) Platelet Count 101 x10^3/uL (140-400) Sodium Level 141 mmol/L (136-145) Chloride Level 106 mmol/L (98-107) Carbon Dioxide Level 24 mmol/L (21-32) Anion Gap 11 (6-14) Blood Urea Nitrogen 55 mg/dL (8-26) Creatinine 2.8 mg/dL (0.7-1.3) Estimated GFR (Cockcroft-Gault) 22.2 Glucose Level 166 mg/dL (70-99) Calcium Level 8.4 mg/dL (8.5-10.1) Magnesium Level 2.3 mg/dL (1.8-2.4) Test 10/01/18 12:18 10/01/18 16:23 Glucose (Fingerstick) 156 mg/dL (70-99) 126 mg/dL (70-99) Assessment/Plan Assessment/Plan Hydronephrosis on ultrasound is not very impressive, is borderline normal. Will get noncontrast CT to further evaluate. Low suspicion of obstructive cause of his renal failure. ERICKA ADKINS MD Oct 01, 2018 17:14
--- NOTE | 2018-10-01 20:52 | RAD ---
Exam: CT abdomen and pelvis without contrast INDICATION: Left hydronephrosis TECHNIQUE: Sequential axial images through the abdomen and pelvis obtained without IV contrast. Sagittal and coronal reformatted images were reconstructed from the axial data and reviewed. Comparisons: None FINDINGS: Heart is enlarged. Moderate trivessel coronary artery calcifications noted. Small amount of anterior pneumomediastinum noted. Consolidative changes in the lower lobes bilaterally. No pleural effusion. Evaluation of solid organs is limited secondary to noncontrast technique. Liver, spleen, pancreas, gallbladder and adrenals are unremarkable. Right kidney is absent. Left extrarenal pelvis. No perinephric inflammation or hydronephrosis. No renal or ureteral calculi. Bladder is decompressed not well evaluated. Edmondson catheter noted within the bladder. Small focus of air in the bladder, likely related to catheterization. Diverticulosis noted probably within the descending and sigmoid colon without evidence of acute diverticulitis. The remainder of the large and small bowel are unremarkable. No obstruction. No free intra-abdominal air or fluid. Abdominal aorta has a normal course and caliber. No enlarged intra-abdominal lymph nodes are identified. No suspicious osseous lesions or acute fractures. Small amount of air within the anterior right thighs bilaterally, likely iatrogenic. Postsurgical changes with sternotomy wires and air within the anterior midline chest subcutaneous tissues. IMPRESSION: 1. Right kidney absent. Left kidney demonstrates extrarenal pelvis. No hydronephrosis. No evidence for obstructive uropathy. 2. Postsurgical changes in the chest with a small amount of pneumomediastinum. 3. Consolidative changes in the lower lobes bilaterally, given location consider aspiration pneumonia. 4. Small amount of air within the subcutaneous tissues of the anterior thighs bilaterally, likely iatrogenic. Correlate with procedural history. Exposure: One or more of the following in the visualized dose reduction techniques were utilized for this examination: 1. Automated exposure control 2. Adjustment of the MA and/or KV according to patient size 3. Use of iterative of reconstructive technique Electronically signed by: Monae Morel MD (10/01/2018 8:49 PM) [facility]
[2018-10-01] MEDS: ATORVASTATIN CALCIUM 40 MG TABLET. PO SCH (20:53)
[2018-10-01] MEDS ORDERED: AMIODARONE HCL 200 MG TABLET. PO ONE (23:00)
[2018-10-01] MEDS: ALPRAZolam 0.25 MG TABLET PO PRN (23:05)
[2018-10-01 23:09] LABS: HEMOGLOBIN A1C 6.1 % (4.8-5.6)
[2018-10-02] VITALS (19 sets, daily range): BP systolic 96–139; BP diastolic 53–73
[2018-10-02] MEDS: IV NORMAL SALINE 1000ML BAG 1,000 ML IV SCH ×2 (02:24→18:36)
[2018-10-02] MEDS: ACETAMINOPHEN 325 MG TABLET. PO PRN (04:18)
[2018-10-02 04:51] LABS: HEMATOCRIT 27.1 % (39.0-53.0); HEMOGLOBIN 9.1 g/dL (13.0-17.5); RED BLOOD COUNT 2.94 x10^6/uL (4.30-5.70); WHITE BLOOD COUNT 8.5 x10^3/uL (4.0-11.0)
[2018-10-02 05:10] LABS: CALCIUM 8.4 mg/dL (8.5-10.1); CREATININE 2.3 mg/dL (0.7-1.3); GFR 27.9; MAGNESIUM 2.3 mg/dL (1.8-2.4); POTASSIUM 4.7 mmol/L (3.5-5.1)
[2018-10-02] MEDS: INSULIN LISPRO 300 UNITS/3 ML INSULN.PEN. SQ SCH ×3 (08:00→17:00)
--- NOTE | 2018-10-02 08:10 | PDOC ---
Provider Note Provider Note for dr quintero- bp lowish, glucose fine/ a1c 6.1- creat down fron 2.8 to 2.3- cont care per dr bauer /consultants MARGOT GOMES MD Oct 02, 2018 08:10
[2018-10-02] MEDS: FAMOTIDINE 20 MG/2 ML VIAL IVP SCH ×2 (08:34→20:36)
[2018-10-02] MEDS: ASPIRIN ENTERIC COATED 325 MG TABLET.DR. PO SCH (08:34)
[2018-10-02] MEDS: AMIODARONE HCL 200 MG TABLET. PO SCH ×2 (08:34→20:35)
[2018-10-02] MEDS: SENNOSIDES/DOCUSATE 8.6/50MG TABLET. PO SCH ×2 (08:34→20:35)
--- NOTE | 2018-10-02 09:07 | RAD ---
PORTABLE CHEST 1V History: Status post coronary artery bypass graft Comparison: October 01, 2018 Findings: Single view of the chest is submitted. Pericardial cardiac silhouette is again enlarged. There is again right internal jugular vascular sheath. Prominence of mediastinal width is unchanged. There is no significant pneumothorax. Previously seen left base chest tube has been removed. There is again suspected small pleural effusion. There is left base airspace opacity overall similar, also mild medial right base opacity. There is perihilar opacity slightly decreased. Impression: 1. Left chest tube has been removed. There is again small left pleural effusion, left greater than right bibasilar airspace opacity which may be component of atelectasis and/or edema. There is unchanged nonspecific widening of the mediastinum. Perihilar opacity which may be due to edema has somewhat decreased. Electronically signed by: Jorge Trammell MD (10/02/2018 9:04 AM) [id number]
--- NOTE | 2018-10-02 09:59 | PDOC ---
VIBHA CHEN TALLIER 10/02/18 0959: SUBJECTIVE Subjective Doing well this am, no LUTS. 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 OBJECTIVE Objective Physical Exam: General appearance: Alert and Oriented Head: Normocephalic, without obvious abnormality Eyes: conjunctivae/corneas clear. PERRL, EOM's intact. Fundi benign Back: C/O chronic pain midline L5 radiating into left side. Lungs: Regular respirations, non labored breathing Abdomen: soft, non-tender, obese . . No masses, no organomegaly Extremities: extremities normal, atraumatic, no cyanosis or edema Vital Signs Vital Signs Date Time Temp Pulse Resp B/P (MAP) Pulse Ox O2 Delivery O2 Flow Rate FiO2 10/02/18 09:00 79 23 132/55 (80) 95 Nasal Cannula 2.0 10/02/18 08:34 79 138/59 10/02/18 08:00 98.7 82 25 138/59 (85) 95 Nasal Cannula 2.0 98.7 10/02/18 08:00 Nasal Cannula 2.0 10/02/18 07:00 79 19 120/62 (81) 95 Nasal Cannula 3.0 10/02/18 06:00 77 19 108/58 (75) 94 Nasal Cannula 3.0 10/02/18 05:00 74 18 96/53 (67) 94 Nasal Cannula 3.0 10/02/18 04:00 Nasal Cannula 3.0 10/02/18 04:00 98.6 82 20 116/55 (75) 94 Nasal Cannula 3.0 98.6 10/02/18 03:00 88 22 105/61 (76) 95 Nasal Cannula 4.0 10/02/18 02:00 81 18 106/61 (76) 97 Nasal Cannula 4.0 10/02/18 01:00 81 18 100/55 (70) 96 Nasal Cannula 4.0 10/02/18 00:00 98.0 82 19 109/67 (81) 97 Nasal Cannula 4.0 98.0 10/01/18 23:59 Nasal Cannula 4.0 10/01/18 23:05 89 103/58 10/01/18 23:00 78 19 103/58 (73) 98 Nasal Cannula 4.0 10/01/18 22:00 83 20 100/58 (72) 98 Nasal Cannula 4.0 10/01/18 21:00 98.0 90 19 117/66 (83) 92 Nasal Cannula 4.0 98.0 10/01/18 20:53 103 112/50 10/01/18 20:00 Nasal Cannula 4.0 10/01/18 19:00 80 20 98/56 (70) 93 Nasal Cannula 4.0 10/01/18 18:55 20 92 Nasal Cannula 4.0 10/01/18 18:00 79 20 112/50 (70) 92 Nasal Cannula 4.0 10/01/18 17:56 20 93 Nasal Cannula 4.0 10/01/18 17:00 77 20 110/55 (73) 92 Nasal Cannula 4.0 10/01/18 16:00 Nasal Cannula 4.0 10/01/18 16:00 77 20 98/39 (58) 93 Nasal Cannula 4.0 10/01/18 15:00 97.8 79 20 104/54 (71) 93 Nasal Cannula 4.0 97.8 10/01/18 14:00 80 20 125/64 (84) 91 Nasal Cannula 4.0 10/01/18 13:00 80 20 110/59 (76) 93 Nasal Cannula 4.0 10/01/18 12:46 20 93 Nasal Cannula 4.0 10/01/18 12:00 Nasal Cannula 4.0 10/01/18 12:00 74 20 102/59 (73) 93 Nasal Cannula 4.0 10/01/18 11:00 98.0 77 24 115/59 (77) 92 Nasal Cannula 4.0 98.0 10/01/18 10:00 74 20 110/62 (78) 96 Nasal Cannula 4.0 I & O Intake and Output 10/02/18 06:59 Intake Total 2750 ml Output Total 1262 ml Balance 1488 ml Intake Oral 1235 ml IV Total 1515 ml Output Urine Total 1092 ml Chest Tube Drainage Total 170 ml PHYSICAL EXAM Physical Exam Physical Exam: General appearance: Alert and Oriented Head: Normocephalic, without obvious abnormality Eyes: conjunctivae/corneas clear. PERRL, EOM's intact. Fundi benign Back: C/O chronic pain midline L5 radiating into left side. Lungs: Regular respirations, non labored breathing Abdomen: soft, non-tender, obese . . No masses, no organomegaly Extremities: extremities normal, atraumatic, no cyanosis or edema ASSESSMENT/PLAN Assessment/Plan Repeat CT ordered by Dr. Adkins is unremarkable-No hydronephrosis Pt remains asymptomatic, with no LUTS or dysuria this am. He has some back pain radiating into left side but states this is chronic for him. Review of [facility] Urochart reveals patient is due for follow up with Dr. Lewis. An appointment has been arranged for him to see Dr. Lewis on 10/21/18 at 1050 am. Appointment card given to patient. All questions answered. Will sign off at this time, but please call with questions or changes in patient condition. COMMENT Lab Laboratory Tests Test 10/01/18 12:18 10/01/18 16:23 10/01/18 23:21 10/02/18 04:00 Glucose (Fingerstick) 156 mg/dL (70-99) 126 mg/dL (70-99) 130 mg/dL (70-99) White Blood Count 8.5 x10^3/uL (4.0-11.0) Red Blood Count 2.94 x10^6/uL (4.30-5.70) Hemoglobin 9.1 g/dL (13.0-17.5) Hematocrit 27.1 % (39.0-53.0) Mean Corpuscular Volume 92 fL (79-100) Mean Corpuscular Hemoglobin 31 pg (25-35) Mean Corpuscular Hemoglobin Concent 34 g/dL (31-37) Red Cell Distribution Width 15.0 % (11.5-14.5) Platelet Count 100 x10^3/uL (140-400) Sodium Level 139 mmol/L (136-145) Potassium Level 4.7 mmol/L (3.5-5.1) Chloride Level 106 mmol/L (98-107) Carbon Dioxide Level 23 mmol/L (21-32) Anion Gap 10 (6-14) Blood Urea Nitrogen 62 mg/dL (8-26) Creatinine 2.3 mg/dL (0.7-1.3) Estimated GFR (Cockcroft-Gault) 27.9 Glucose Level 128 mg/dL (70-99) Calcium Level 8.4 mg/dL (8.5-10.1) Magnesium Level 2.3 mg/dL (1.8-2.4) Test 10/02/18 08:31 Glucose (Fingerstick) 117 mg/dL (70-99) ERICKA ADKINS MD 10/02/18 1626: ASSESSMENT/PLAN Assessment/Plan Agree with assessment and plan. VIBHA CHEN APRN Oct 02, 2018 09:59 ERICKA ADKINS MD Oct 02, 2018 16:26
--- NOTE | 2018-10-02 10:03 | PDOC ---
SUBJECTIVE ROS Sitting up in chair, No complaints No concerns voiced by RN OBJECTIVE Vital Signs Vital Signs Date Time Temp Pulse Resp B/P (MAP) Pulse Ox O2 Delivery O2 Flow Rate FiO2 10/02/18 09:00 79 23 132/55 (80) 95 Nasal Cannula 2.0 10/02/18 08:00 98.7 98.7 I & 0 Intake and Output 10/02/18 06:59 Intake Total 2750 ml Output Total 1262 ml Balance 1488 ml Intake Oral 1235 ml IV Total 1515 ml Output Urine Total 1092 ml Chest Tube Drainage Total 170 ml PHYSICAL EXAM Physical Exam General: Alert, Oriented X3, No acute distress HEENT: OM moist , o2 by NC Neck Supple Lungs: Clear to auscultation Heart: S1S2, RRR, Abdomen: Soft, No tenderness, Extremities: No edema Skin: No significant lesion Neuro: Grossly normal - Edmondson+ DIAGNOSIS/ASSESSMENT Assessment & Plan DOROTA -ATN s/p cardiac cath 09/11 - Cr was 1.2 S/P CABG 09/29, IV lasix - Cr improving On Hydronephrosis on CT, UOP improving E-Lytes and acid base stable Can Hold off IVF if po intake adequate , Supportive care , Monitor Hyperkalemia- Normal K CAD s/p CABG 09/29 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 Renal US Hypernatremia- resolved Anemia- Hgb decreasing Per primary Discussed a/p with pt and at bedside Dw RN COMMENT/RELEVANT DATA Meds Current Medications Medications (Trade) Dose Ordered Sig/Claudio Start Time Stop Time Status Last Admin Dose Admin Acetaminophen (Tylenol Supp) 650 mg PRN Q4HRS PRN 09/29/18 15:15 Acetaminophen (Tylenol) 650 mg PRN Q4HRS PRN 09/29/18 15:15 10/02/18 04:18 650 MG Albumin Human 250 ml @ 500 mls/hr PRN Q4HRS PRN 09/29/18 15:15 10/01/18 13:14 DC 09/30/18 11:48 500 MLS/HR Albuterol Sulfate (Ventolin Neb Soln) 2.5 mg PRN Q4HRS PRN 09/29/18 15:15 09/30/18 17:13 2.5 MG Albuterol/ Ipratropium (Duoneb) 3 ml 1X ONCE 09/30/18 14:00 09/30/18 14:01 DC 09/30/18 14:05 3 ML Alprazolam (Xanax) 0.25 mg PRN QHS PRN 10/01/18 23:00 10/01/18 23:05 0.25 MG Aminocaproic Acid (Amicar) 5,000 mg STK-MED ONCE 09/29/18 11:37 09/29/18 11:38 DC Amiodarone HCl (Cordarone) 200 mg 1X ONCE 10/01/18 23:00 10/01/18 23:01 DC 10/01/18 23:05 200 MG Amiodarone HCl 150 mg/Dextrose 103 ml @ 618 mls/hr 1X ONCE 09/29/18 21:15 09/29/18 21:24 DC 09/29/18 21:02 618 MLS/HR Amiodarone HCl 900 mg/Dextrose 518 ml @ 0 mls/hr CONT PRN PRN 09/29/18 15:15 09/29/18 15:20 16.7 MLS/HR Aspirin (Aspirin Rectal Supp) 300 mg PRN DAILY PRN 09/30/18 08:00 Aspirin (Ecotrin) 325 mg [id number] 09/30/18 08:00 10/02/18 08:34 325 MG Atorvastatin Calcium (Lipitor) 40 mg QHS 10/01/18 21:00 10/01/18 20:53 40 MG Bisacodyl (Dulcolax Supp) 10 mg PRN DAILY PRN 09/29/18 15:15 Calcium Chloride (Calcium Chloride) 1,000 mg STK-MED ONCE 09/29/18 13:45 09/29/18 13:46 DC Cefazolin Sodium (Ancef) 1 gm STK-MED ONCE 09/29/18 08:43 09/29/18 08:44 DC Cefazolin Sodium 1 gm/Sodium Chloride 500 ml @ 500 mls/hr 1X ONCE 09/29/18 06:00 09/29/18 07:00 DC 09/29/18 08:41 Cefazolin Sodium/ Dextrose (Ancef 2gm Premix) 2 gm STK-MED ONCE 09/29/18 06:00 09/30/18 11:09 DC Cellulose (Surgicel Hemostat 4x8) 1 each STK-MED ONCE 09/29/18 05:54 09/29/18 06:54 DC 09/29/18 08:41 1 EACH Chlorhexidine Gluconate (Peridex) 15 ml BID 09/30/18 09:00 09/30/18 20:56 DC Dexamethasone Sodium Phosphate (Decadron) 20 mg STK-MED ONCE 09/29/18 09:29 09/29/18 09:30 DC Dextrose (Dextrose 50%-Water Syringe) 12.5 gm PRN Q15MIN PRN 09/30/18 14:00 Dopamine HCl/ Dextrose 250 ml @ 0 mls/hr CONT PRN 09/30/18 18:00 09/30/18 18:15 9.3 MLS/HR Ephedrine Sulfate (ePHEDrine PF IN SALINE SYRINGE) 50 mg STK-MED ONCE 09/29/18 06:24 09/29/18 06:25 DC Epinephrine HCl (EPINEPHrine SYRINGE) 1 mg STK-MED ONCE 09/29/18 13:27 09/29/18 13:28 DC Etomidate (Amidate) 20 mg STK-MED ONCE 09/29/18 06:24 09/29/18 06:25 DC Famotidine (Pepcid Vial) 20 mg BID 09/29/18 21:00 10/02/18 08:34 20 MG Fentanyl Citrate (Fentanyl 2ml Vial) 100 mcg STK-MED ONCE 09/29/18 07:05 09/29/18 07:06 DC Furosemide (Lasix) 60 mg 1X ONCE 09/30/18 18:30 09/30/18 18:31 DC 09/30/18 18:12 60 MG Heparin Sodium (Porcine) 30,000 unit STK-MED ONCE 09/29/18 13:45 09/29/18 13:46 DC Heparin Sodium (Porcine) (Heparin Sodium) 10,000 unit STK-MED ONCE 09/29/18 13:45 09/29/18 13:46 DC Heparin Sodium (Porcine) 41281 unit/Ringer's Solution 1,020 ml @ 1,020 mls/hr 1X ONCE 09/29/18 06:00 09/29/18 07:00 DC 09/29/18 08:41 Heparin Sodium (Porcine) 800 unit/ Nitroglycerin 4 mg/Verapamil HCl 8 mg/Sodium Bicarbonate 0.34 meq/Ringer's Solution 512.34 ml @ 512.34 mls/hr 1X ONCE 09/29/18 06:00 09/29/18 07:00 DC 09/29/18 08:31 Hydromorphone HCl (Dilaudid) 0.5 mg PRN Q10MIN PRN 09/29/18 07:00 09/30/18 06:59 DC Info (KCl Per Protocol) 1 ea CONT PRN PRN 09/29/18 15:15 10/01/18 13:14 DC Insulin Glargine (Lantus) 10 units 1X ONCE 09/30/18 18:15 09/30/18 18:16 DC 09/30/18 20:42 10 UNITS Insulin Human Lispro (HumaLOG) 0-5 UNITS TIDWMEALS 09/30/18 17:00 10/01/18 12:22 2 UNITS Insulin Human Regular 150 unit/ Sodium Chloride 151.5 ml @ 0 mls/hr CONT PRN PRN 09/29/18 15:15 10/01/18 13:14 DC 09/29/18 15:20 2 MLS/HR Lidocaine HCl (Lidocaine Pf 2% Vial) 5 ml STK-MED ONCE 09/29/18 13:45 09/29/18 13:46 DC Lidocaine HCl (Xylocaine-Mpf 1% 2ml Vial) 2 ml PRN 1X PRN 09/29/18 07:00 09/30/18 06:59 DC Magnesium Sulfate 5 gm STK-MED ONCE 09/29/18 13:45 09/29/18 13:46 DC Magnesium Sulfate/ Dextrose 100 ml @ 100 mls/hr PRN DAILY PRN 09/29/18 15:15 Mannitol (Mannitol) 12.5 g STK-MED ONCE 09/29/18 13:45 09/29/18 13:46 DC Meperidine HCl (Demerol) 12.5 mg PRN Q15MIN PRN 09/29/18 15:15 09/30/18 15:14 DC Metoclopramide HCl (Reglan Vial) 10 mg PRN Q6HRS PRN 09/29/18 15:15 Metoprolol Tartrate (Lopressor) 25 mg BID 09/30/18 09:00 10/01/18 13:14 DC Midazolam HCl (Versed) 2 mg STK-MED ONCE 09/29/18 06:27 09/29/18 06:28 DC Morphine Sulfate (Morphine Sulfate) 4 mg PRN Q1HR PRN 09/29/18 15:15 09/30/18 09:10 4 MG Nicardipine HCl 50 mg/Sodium Chloride 250 ml @ 0 mls/hr CONT PRN PRN 09/29/18 15:15 UNV Nitroglycerin/ Dextrose 250 ml @ 0 mls/hr CONT PRN PRN 09/29/18 15:15 Norepinephrine Bitartrate 250 ml @ 17.605 mls/ hr CONT PRN 09/30/18 19:00 09/30/18 19:09 8.803 MLS/HR Ondansetron HCl (Zofran) 4 mg PRN Q4HRS PRN 09/29/18 15:15 09/30/18 18:25 4 MG Oxycodone HCl (Roxicodone) 10 mg PRN Q4HRS PRN 09/29/18 15:15 10/01/18 08:33 10 MG Papaverine HCl 60 mg STK-MED ONCE 09/29/18 05:54 09/29/18 06:54 DC 09/29/18 08:41 60 MG Phenylephrine HCl (Clarence-Synephrine Inj) 10 mg STK-MED ONCE 09/29/18 06:24 09/29/18 06:25 DC Phenylephrine HCl 20 mg/Sodium Chloride 252 ml @ 0 mls/hr CONT PRN PRN 09/29/18 15:15 Potassium Chloride 15 meq/ Sodium Bicarbonate 12.5 meq/Parenteral Electrolytes 520 ml @ 520 mls/hr 1X ONCE 09/29/18 06:00 09/29/18 07:00 DC 09/29/18 11:04 520 MLS/HR Potassium Chloride 70 meq/ Sodium Bicarbonate 12.5 meq/Lidocaine HCl 24 ml/Parenteral Electrolytes 571.5 ml @ 571.5 mls/ hr 1X ONCE 09/29/18 06:00 09/29/18 07:00 DC 09/29/18 11:04 571.5 MLS/HR Potassium Chloride/Water 50 ml @ 50 mls/hr Q1H 09/29/18 17:00 09/29/18 18:59 DC 09/29/18 18:09 50 MLS/HR Prochlorperazine Edisylate (Compazine) 10 mg PRN Q6HRS PRN 09/29/18 15:15 Propofol 100 ml @ 0 mls/hr CONT PRN PRN 09/29/18 15:15 10/01/18 13:14 DC 09/29/18 17:20 10 MLS/HR Protamine Sulfate (Protamine) 250 mg STK-MED ONCE 09/29/18 08:43 09/29/18 08:44 DC Ringer's Solution 1,000 ml @ 30 mls/hr Q24H 09/29/18 15:14 09/30/18 20:56 DC 09/30/18 11:49 30 MLS/HR Rocuronium [place] (Zemuron) 50 mg STK-MED ONCE 09/29/18 12:37 09/29/18 12:38 DC Senna/Docusate Sodium (Senna Plus) 1 tab BID 09/29/18 21:00 10/02/18 08:34 1 TAB Sodium Bicarbonate (Sodium Bicarb Adult 8.4% Syr) 50 meq STK-MED ONCE 09/29/18 15:57 09/29/18 15:58 DC Sodium Chloride 1,000 ml @ 75 mls/hr [id number] 09/30/18 20:45 10/02/18 02:24 75 MLS/HR Sodium Chloride (Normal Saline Flush) 3 ml PRN Q12HR PRN 09/29/18 15:15 Sodium Chloride (SODIUM CHLORIDE 20ml) 20 ml STK-MED ONCE 09/29/18 05:56 09/29/18 06:56 DC 09/29/18 08:41 20 ML Sufentanil Citrate (Sufenta) 250 mcg STK-MED ONCE 09/29/18 06:26 09/29/18 06:27 DC Vancomycin HCl (VANCO for OR ONLY) 10 gm STK-MED ONCE 09/29/18 05:54 09/29/18 06:54 DC 09/29/18 08:41 10 GM Lab Laboratory Tests Test 10/01/18 12:18 10/01/18 16:23 10/01/18 23:21 10/02/18 04:00 Glucose (Fingerstick) 156 mg/dL (70-99) 126 mg/dL (70-99) 130 mg/dL (70-99) White Blood Count 8.5 x10^3/uL (4.0-11.0) Red Blood Count 2.94 x10^6/uL (4.30-5.70) Hemoglobin 9.1 g/dL (13.0-17.5) Hematocrit 27.1 % (39.0-53.0) Mean Corpuscular Volume 92 fL (79-100) Mean Corpuscular Hemoglobin 31 pg (25-35) Mean Corpuscular Hemoglobin Concent 34 g/dL (31-37) Red Cell Distribution Width 15.0 % (11.5-14.5) Platelet Count 100 x10^3/uL (140-400) Sodium Level 139 mmol/L (136-145) Potassium Level 4.7 mmol/L (3.5-5.1) Chloride Level 106 mmol/L (98-107) Carbon Dioxide Level 23 mmol/L (21-32) Anion Gap 10 (6-14) Blood Urea Nitrogen 62 mg/dL (8-26) Creatinine 2.3 mg/dL (0.7-1.3) Estimated GFR (Cockcroft-Gault) 27.9 Glucose Level 128 mg/dL (70-99) Calcium Level 8.4 mg/dL (8.5-10.1) Magnesium Level 2.3 mg/dL (1.8-2.4) Test 10/02/18 08:31 Glucose (Fingerstick) 117 mg/dL (70-99) Results All relevant outside records, renal labs, imaging studies, telemetry/EKG's were reviewed. VIKRAM MEDINA MD Oct 02, 2018 10:02
--- NOTE | 2018-10-02 14:02 | PDOC ---
PROGRESS NOTES Subjective Subjective c/o sternal incisional pain and nausea Objective Objective Vital Signs Date Time Temp Pulse Resp B/P (MAP) Pulse Ox O2 Delivery O2 Flow Rate FiO2 10/02/18 12:00 Nasal Cannula 2.0 10/02/18 12:00 98.4 73 16 131/61 (84) 96 98.4 Intake and Output 10/02/18 06:59 Intake Total 2750 ml Output Total 1262 ml Balance 1488 ml Intake Oral 1235 ml IV Total 1515 ml Output Urine Total 1092 ml Chest Tube Drainage Total 170 ml Physical Exam Abdomen: Soft, No tenderness Heart: Regular rate (SR with intermittent PVcs), Other (distant heart sounds) Extremities: No cyanosis, Other (trace to 1+ LE edema) General: Alert, No acute distress HEENT: Atraumatic, Mucous membr. moist/pink Lungs: Other (diminished, chest tube in place with serosanguinous) Neuro: Normal speech, Sensation intact Psych/Mental Status: Mental status NL, Mood NL Skin: No breakdown, No significant lesion Assessment Assessment 1. 3VD: S/P CABG x 4 (JONES to LAD, radial to OM, SVG to RPL, SVG to RPDA) POD#3: CT's out, pacer wires still in, continue post op care per CTS. Start beta blockers 2. Post op atrial fibrillation: HR controlled. Continue amiodarone. We will consider initiation of eliquis prior to DC if he continues to be in atrial fib 3. HTN: controlled 4. HLP: statins 5. DOROTA on CKD3/mild hyperkalemia: with past right nephrectomy from renal CA. Cr improved from 2.8 to 2.3. Nephrology following Plan Plan of Care Problems Medical Problems: (1) 3-vessel coronary artery disease Status: Chronic (2) Chronic renal failure Status: Chronic (3) Diabetes Status: Chronic (4) HTN (hypertension) Status: Chronic (5) Morbid obesity Status: Chronic (6) Stable angina Status: Acute Comment Review of Relevant I have reviewed the following items sang (where applicable) has been applied. Labs Laboratory Tests Test 10/01/18 16:23 10/01/18 23:21 10/02/18 04:00 10/02/18 08:31 Glucose (Fingerstick) 126 mg/dL (70-99) 130 mg/dL (70-99) 117 mg/dL (70-99) White Blood Count 8.5 x10^3/uL (4.0-11.0) Red Blood Count 2.94 x10^6/uL (4.30-5.70) Hemoglobin 9.1 g/dL (13.0-17.5) Hematocrit 27.1 % (39.0-53.0) Mean Corpuscular Volume 92 fL (79-100) Mean Corpuscular Hemoglobin 31 pg (25-35) Mean Corpuscular Hemoglobin Concent 34 g/dL (31-37) Red Cell Distribution Width 15.0 % (11.5-14.5) Platelet Count 100 x10^3/uL (140-400) Sodium Level 139 mmol/L (136-145) Potassium Level 4.7 mmol/L (3.5-5.1) Chloride Level 106 mmol/L (98-107) Carbon Dioxide Level 23 mmol/L (21-32) Anion Gap 10 (6-14) Blood Urea Nitrogen 62 mg/dL (8-26) Creatinine 2.3 mg/dL (0.7-1.3) Estimated GFR (Cockcroft-Gault) 27.9 Glucose Level 128 mg/dL (70-99) Calcium Level 8.4 mg/dL (8.5-10.1) Magnesium Level 2.3 mg/dL (1.8-2.4) Test 10/02/18 11:48 Glucose (Fingerstick) 114 mg/dL (70-99) Medications Current Medications Alprazolam (Xanax) 0.25 mg PRN QHS PRN PO ANXIETY / AGITATION Last administered on 10/01/18at 23:05; Start 10/01/18 at 23:00 Amiodarone HCl (Cordarone) 200 mg 1X ONCE PO Last administered on 10/01/18at 23:05; Start 10/01/18 at 23:00; Stop 10/01/18 at 23:01; Status DC Amiodarone HCl (Cordarone) 400 mg BID PO Last administered on 10/02/18at 08:34; Start 10/02/18 at 09:00 Atorvastatin Calcium (Lipitor) 40 mg QHS PO Last administered on 10/01/18at 20:53; Start 10/01/18 at 21:00 Vitals/I & O Vital Sign - Last 24 Hours 10/01/18 10/01/18 10/01/18 10/01/18 14:00 15:00 16:00 16:00 Temp 97.8 97.8 Pulse 80 79 77 Resp 20 20 20 B/P (MAP) 125/64 (84) 104/54 (71) 98/39 (58) Pulse Ox 91 93 93 O2 Delivery Nasal Cannula Nasal Cannula Nasal Cannula Nasal Cannula O2 Flow Rate 4.0 4.0 4.0 4.0 10/01/18 10/01/18 10/01/18 10/01/18 17:00 17:56 18:00 18:55 Pulse 77 79 Resp 20 20 20 20 B/P (MAP) 110/55 (73) 112/50 (70) Pulse Ox 92 93 92 92 O2 Delivery Nasal Cannula Nasal Cannula Nasal Cannula Nasal Cannula O2 Flow Rate 4.0 4.0 4.0 4.0 10/01/18 10/01/18 10/01/18 10/01/18 19:00 20:00 20:53 21:00 Temp 98.0 98.0 Pulse 80 103 90 Resp 19 B/P (MAP) 98/56 (70) 112/50 117/66 (83) Pulse Ox 93 92 O2 Delivery Nasal Cannula Nasal Cannula Nasal Cannula O2 Flow Rate 4.0 4.0 4.0 10/01/18 10/01/18 10/01/18 10/01/18 22:00 23:00 23:05 23:59 Pulse 83 78 89 Resp 19 B/P (MAP) 100/58 (72) 103/58 (73) 103/58 Pulse Ox 98 98 O2 Delivery Nasal Cannula Nasal Cannula Nasal Cannula O2 Flow Rate 4.0 4.0 4.0 10/02/18 10/02/18 10/02/18 10/02/18 00:00 01:00 02:00 03:00 Temp 98.0 98.0 Pulse 82 81 81 88 Resp 19 18 18 22 B/P (MAP) 109/67 (81) 100/55 (70) 106/61 (76) 105/61 (76) Pulse Ox 97 96 97 95 O2 Delivery Nasal Cannula Nasal Cannula Nasal Cannula Nasal Cannula O2 Flow Rate 4.0 4.0 4.0 4.0 10/02/18 10/02/18 10/02/18 10/02/18 04:00 04:00 05:00 06:00 Temp 98.6 98.6 Pulse 82 74 77 Resp 20 18 19 B/P (MAP) 116/55 (75) 96/53 (67) 108/58 (75) Pulse Ox 94 94 94 O2 Delivery Nasal Cannula Nasal Cannula Nasal Cannula Nasal Cannula O2 Flow Rate 3.0 3.0 3.0 3.0 10/02/18 10/02/18 10/02/18 10/02/18 07:00 08:00 08:00 08:34 Temp 98.7 98.7 Pulse 79 82 79 Resp 19 25 B/P (MAP) 120/62 (81) 138/59 (85) 138/59 Pulse Ox 95 95 O2 Delivery Nasal Cannula Nasal Cannula Nasal Cannula O2 Flow Rate 3.0 2.0 2.0 10/02/18 10/02/18 10/02/18 10/02/18 09:00 10:00 11:00 12:00 Temp 98.4 98.4 Pulse 79 72 73 73 Resp 23 17 24 16 B/P (MAP) 132/55 (80) 126/55 (78) 102/59 (73) 131/61 (84) Pulse Ox 95 93 93 96 O2 Delivery Nasal Cannula Nasal Cannula Nasal Cannula Nasal Cannula O2 Flow Rate 2.0 2.0 2.0 2.0 10/02/18 12:00 O2 Delivery Nasal Cannula O2 Flow Rate 2.0 Intake and Output 10/01/18 10/01/18 10/02/18 14:59 22:59 06:59 Intake Total 480 ml 1445 ml 825 ml Output Total 352 ml 330 ml 580 ml Balance 128 ml 1115 ml 245 ml SANDRA GARCIA MD Oct 02, 2018 14:02
--- NOTE | 2018-10-02 15:01 | NUR ---
SS following up with discharge planning. Pt is currently requiring oxygen. No discharge needs noted at this time. SS will continue to follow for discharge planning.
[2018-10-02] MEDS: ONDANSETRON PF 4 MG/2 ML VIAL. IV PRN ×2 (15:11→18:30)
--- NOTE | 2018-10-02 15:15 | PDOC ---
Progress Note Subjective Subjective Feels well. Normotensive. Went into AFib last night, back in SR with 400mg Amiodarone BID. UO much improved approx 100cc/hr, creat down to 2.3 from 2.8 BUN 62, K 4.7, Hb 9.1. CXR improved. Has some nausea today, mildly distended, no BMs ROS ROS + nausea No vomiting No pain No rash Vital Sign Vital Signs Vital Signs Date Time Temp Pulse Resp B/P (MAP) Pulse Ox O2 Delivery O2 Flow Rate FiO2 10/02/18 14:00 78 24 139/64 (89) 95 Nasal Cannula 2.0 10/02/18 12:00 98.4 98.4 Physical Exam PHYSICAL EXAM GENERAL: NAD, Alert HEENT: PERRL, OC/OP NECK: Supple, no JVD, no LN LUNGS: rales Chest: dressing D/C/I HEART: S1S2, no gallop, no murmur ABD: Soft, NT, mild distention EXT: Mild edema,no further drainage from distal aspect of radial harvest site RIB STIFFENER AND HEEL DIPPER: Alert, oriented x 3, no focal neurologic deficit IV: ok Labs Lab Laboratory Tests Test 10/01/18 16:23 10/01/18 23:21 10/02/18 04:00 10/02/18 08:31 Glucose (Fingerstick) 126 mg/dL (70-99) 130 mg/dL (70-99) 117 mg/dL (70-99) White Blood Count 8.5 x10^3/uL (4.0-11.0) Red Blood Count 2.94 x10^6/uL (4.30-5.70) Hemoglobin 9.1 g/dL (13.0-17.5) Hematocrit 27.1 % (39.0-53.0) Mean Corpuscular Volume 92 fL (79-100) Mean Corpuscular Hemoglobin 31 pg (25-35) Mean Corpuscular Hemoglobin Concent 34 g/dL (31-37) Red Cell Distribution Width 15.0 % (11.5-14.5) Platelet Count 100 x10^3/uL (140-400) Sodium Level 139 mmol/L (136-145) Potassium Level 4.7 mmol/L (3.5-5.1) Chloride Level 106 mmol/L (98-107) Carbon Dioxide Level 23 mmol/L (21-32) Anion Gap 10 (6-14) Blood Urea Nitrogen 62 mg/dL (8-26) Creatinine 2.3 mg/dL (0.7-1.3) Estimated GFR (Cockcroft-Gault) 27.9 Glucose Level 128 mg/dL (70-99) Calcium Level 8.4 mg/dL (8.5-10.1) Magnesium Level 2.3 mg/dL (1.8-2.4) Test 10/02/18 11:48 Glucose (Fingerstick) 114 mg/dL (70-99) Objective Assessment POD#3, s/p CABG x 4 (JONES to LAD, radial to OM, SVG to RPDA, SVG to RPL) Feels well. Normotensive. Went into AFib last night, back in SR with 400mg Amio darone BID. UO much improved approx 100cc/hr, creat down to 2.3 from 2.8 BUN 62, K 4.7, Hb 9.1. CXR improved. Has some nausea today, mildly distended, no BMs Plan Plan of Care D/c cordis D/c pacing wires Amiodarone 400mg BID for AFib Keep davis for another day-renal failure improving Pulmonary toilet and incentive spirometry Suppository for mild distention and nausea + Zofran OK to keep IV fluids at 50mls/hr, given patient's nausea Transfer to stepdown RANJAN FONTAINE MD Oct 02, 2018 15:15
--- NOTE | 2018-10-02 15:15 | NUR ---
Dr. Scott here to see pt and removed the epicardial pacing wires.
[2018-10-02] MEDS ORDERED: BISACODYL 10 MG SUPP.RECT. PR ONE (16:30)
[2018-10-02] MEDS: ATORVASTATIN CALCIUM 40 MG TABLET. PO SCH (20:35)
[2018-10-02] MEDS: METOPROLOL TART IMMED RELEASE 25 MG TABLET. PO SCH (20:36)
[2018-10-03 03:28] VITALS: BP 112/63
[2018-10-03] MEDS: IV NORMAL SALINE 1000ML BAG 1,000 ML IV SCH (05:40)
[2018-10-03 07:00] VITALS: BP 114/58
[2018-10-03] MEDS: INSULIN LISPRO 300 UNITS/3 ML INSULN.PEN. SQ SCH ×3 (08:00→17:00)
[2018-10-03] MEDS ORDERED: IV DEXTROSE 5% 250 ML BAG. IV PRN (08:00)
[2018-10-03] MEDS: FAMOTIDINE 20 MG/2 ML VIAL IVP SCH ×2 (08:23→20:12)
[2018-10-03] MEDS: ONDANSETRON PF 4 MG/2 ML VIAL. IV PRN (08:24)
[2018-10-03] MEDS: SENNOSIDES/DOCUSATE 8.6/50MG TABLET. PO SCH ×2 (08:29→20:11)
[2018-10-03] MEDS: ALPRAZolam 0.25 MG TABLET PO PRN (08:29)
[2018-10-03] MEDS: ACETAMINOPHEN 325 MG TABLET. PO PRN ×2 (08:30→20:08)
[2018-10-03] MEDS: ASPIRIN ENTERIC COATED 325 MG TABLET.DR. PO SCH (08:31)
[2018-10-03] MEDS: METOPROLOL TART IMMED RELEASE 25 MG TABLET. PO SCH ×2 (08:31→20:09)
[2018-10-03] MEDS: AMIODARONE HCL 200 MG TABLET. PO SCH ×2 (08:31→20:08)
[2018-10-03 11:00] VITALS: BP 112/63
[2018-10-03] MEDS: oxyCODONE IR 5 MG TABLET PO PRN (11:39)
--- NOTE | 2018-10-03 12:01 | PDOC ---
PROGRESS NOTES Subjective Subjective c/o Sternal incisional pain and mild dyspnea Objective Objective Vital Signs Date Time Temp Pulse Resp B/P (MAP) Pulse Ox O2 Delivery O2 Flow Rate FiO2 10/03/18 11:39 91 Nasal Cannula 3.0 10/03/18 11:00 97.4 69 18 112/63 (79) 97.4 Intake and Output 10/03/18 06:59 Intake Total 2105 ml Output Total 2066 ml Balance 39 ml Intake Oral 1330 ml IV Total 775 ml Output Urine Total 2066 ml Physical Exam Abdomen: Soft, No tenderness Heart: Regular rate (SR with intermittent PVcs), Other (distant heart sounds) Extremities: No cyanosis, Other (trace to 1+ LE edema) General: Alert, No acute distress HEENT: Atraumatic, Mucous membr. moist/pink Lungs: Other (diminished, chest tube in place with serosanguinous) Neuro: Normal speech, Sensation intact Psych/Mental Status: Mental status NL, Mood NL Skin: No breakdown, No significant lesion Assessment Assessment 1. 3VD: S/P CABG x 4 (JONES to LAD, radial to OM, SVG to RPL, SVG to RPDA) POD#4: CT's and pacer wires out, post op care per CTS. Continue beta blockers 2. Post op atrial fibrillation: Tele today showed atrial flutter, HR controlled. Continue amiodarone. Start Eliquis when okay from surgical standpoint, ?prior to DC and consider outpatient cardioversion in 3-4 weeks. 3. HTN: controlled 4. HLP: statins 5. DOROTA on CKD3/mild hyperkalemia: with past right nephrectomy from renal CA. Cr improved from 2.8 to 2.3 yesterday. Nephrology following Plan Plan of Care Problems Medical Problems: (1) 3-vessel coronary artery disease Status: Chronic (2) Chronic renal failure Status: Chronic (3) Diabetes Status: Chronic (4) HTN (hypertension) Status: Chronic (5) Morbid obesity Status: Chronic (6) Stable angina Status: Acute Comment Review of Relevant I have reviewed the following items sang (where applicable) has been applied. Labs Laboratory Tests Test 10/03/18 08:23 Glucose (Fingerstick) 124 mg/dL (70-99) Medications Current Medications Bisacodyl (Dulcolax Supp) 10 mg 1X ONCE VT Last administered on 10/02/18at 16:49; Start 10/02/18 at 16:30; Stop 10/02/18 at 16:31; Status DC Dextrose 250 ml PRN Q15MIN PRN IV SEE COMMENTS; Start 10/03/18 at 08:00 Metoprolol Tartrate (Lopressor) 12.5 mg BID PO Last administered on 10/03/18at 08:31; Start 10/02/18 at 21:00 Vitals/I & O Vital Sign - Last 24 Hours 10/02/18 10/02/18 10/02/18 10/02/18 13:00 14:00 15:00 16:00 Temp 98.5 98.5 Pulse 80 78 80 81 Resp 20 24 23 26 B/P (MAP) 121/68 (85) 139/64 (89) 136/65 (88) 128/71 (90) Pulse Ox 95 95 93 93 O2 Delivery Nasal Cannula Nasal Cannula Nasal Cannula Nasal Cannula O2 Flow Rate 2.0 2.0 2.0 2.0 10/02/18 10/02/18 10/02/18 10/02/18 16:00 18:30 20:00 20:35 Temp 98.4 98.4 Pulse 93 93 Resp 26 B/P (MAP) 120/73 (89) 120/73 Pulse Ox 94 O2 Delivery Nasal Cannula Room Air Nasal Cannula O2 Flow Rate 2.0 3.0 10/02/18 10/02/18 10/03/18 10/03/18 20:36 23:21 03:28 07:00 Temp 98.4 97.6 97.6 98.4 97.6 97.6 Pulse 93 67 68 83 Resp 20 18 20 B/P (MAP) 120/73 115/61 (79) 112/63 (79) 114/58 (76) Pulse Ox 93 96 91 O2 Delivery Nasal Cannula Nasal Cannula Nasal Cannula O2 Flow Rate 3.0 3.0 3.0 10/03/18 10/03/18 10/03/18 10/03/18 08:31 08:31 11:00 11:39 Temp 97.4 97.4 Pulse 78 78 69 Resp 18 B/P (MAP) 114/58 114/58 112/63 (79) Pulse Ox 96 91 O2 Delivery Nasal Cannula Nasal Cannula O2 Flow Rate 3.0 3.0 Intake and Output 10/02/18 10/02/18 10/03/18 14:59 22:59 06:59 Intake Total 790 ml 1315 ml Output Total 740 ml 226 ml 1100 ml Balance 50 ml 1089 ml -1100 ml SANDRA GARCIA MD Oct 03, 2018 12:01
--- NOTE | 2018-10-03 12:26 | PDOC ---
Provider Note Provider Note vss, good output still- no labs today, glucose good- alert and eating now- will repeat bmp in am, rest same MARGOT GOMES MD Oct 03, 2018 12:26
--- NOTE | 2018-10-03 12:44 | PDOC ---
PROGRESS NOTES Subjective Subjective SEEN IN FOLLOW UP OF ARF Objective Objective Vital Signs Date Time Temp Pulse Resp B/P (MAP) Pulse Ox O2 Delivery O2 Flow Rate FiO2 10/03/18 11:39 91 Nasal Cannula 3.0 10/03/18 11:00 97.4 69 18 112/63 (79) 97.4 Intake and Output 10/03/18 07:00 Intake Total 2105 ml Output Total 1981 ml Balance 124 ml Intake Oral 1330 ml IV Total 775 ml Output Urine Total 1981 ml Physical Exam Abdomen: Normal bowel sounds, Soft, No tenderness, No hepatosplenomegaly, No masses Heart: Regular rate, Normal S1, Normal S2, No murmurs, Gallops Extremities: No clubbing, No cyanosis, No edema, Normal pulses, No tenderness/swelling General: Alert, Oriented X3, Cooperative, No acute distress Lungs: Clear to auscultation, Normal air movement Psych/Mental Status: Mental status NL, Mood NL Diagnosis RENAL FAILURE: Acute (Acute tubular necrosis) Assessment Assessment Problems Medical Problems: (1) 3-vessel coronary artery disease Status: Chronic (2) Chronic renal failure Status: Chronic (3) Diabetes Status: Chronic (4) HTN (hypertension) Status: Chronic (5) Morbid obesity Status: Chronic (6) Stable angina Status: Acute Plan Plan of Care HE IS POST CABG. RENAL FUNCTION IS WORSENING. CONT TO MONITOR ATN. NO ACUTE NEED FOR DIALYSIS. Comment Review of Relevant I have reviewed the following items sang (where applicable) has been applied. Labs Laboratory Tests Test 10/01/18 16:23 10/01/18 23:21 10/02/18 04:00 10/02/18 08:31 Glucose (Fingerstick) 126 mg/dL (70-99) 130 mg/dL (70-99) 117 mg/dL (70-99) White Blood Count 8.5 x10^3/uL (4.0-11.0) Red Blood Count 2.94 x10^6/uL (4.30-5.70) Hemoglobin 9.1 g/dL (13.0-17.5) Hematocrit 27.1 % (39.0-53.0) Mean Corpuscular Volume 92 fL (79-100) Mean Corpuscular Hemoglobin 31 pg (25-35) Mean Corpuscular Hemoglobin Concent 34 g/dL (31-37) Red Cell Distribution Width 15.0 % (11.5-14.5) Platelet Count 100 x10^3/uL (140-400) Sodium Level 139 mmol/L (136-145) Potassium Level 4.7 mmol/L (3.5-5.1) Chloride Level 106 mmol/L (98-107) Carbon Dioxide Level 23 mmol/L (21-32) Anion Gap 10 (6-14) Blood Urea Nitrogen 62 mg/dL (8-26) Creatinine 2.3 mg/dL (0.7-1.3) Estimated GFR (Cockcroft-Gault) 27.9 Glucose Level 128 mg/dL (70-99) Calcium Level 8.4 mg/dL (8.5-10.1) Magnesium Level 2.3 mg/dL (1.8-2.4) Test 10/02/18 11:48 10/03/18 08:23 Glucose (Fingerstick) 114 mg/dL (70-99) 124 mg/dL (70-99) Laboratory Tests Test 10/03/18 08:23 Glucose (Fingerstick) 124 mg/dL (70-99) Medications Current Medications Cefazolin Sodium 1 gm/Sodium Chloride 500 ml @ 500 mls/hr 1X ONCE IRR Last administered on 09/29/18at 08:41; Start 09/29/18 at 06:00; Stop 09/29/18 at 07:00; Status DC Potassium Chloride 70 meq/ Sodium Bicarbonate 12.5 meq/Lidocaine HCl 24 ml/Parenteral Electrolytes 571.5 ml @ 571.5 mls/ hr 1X ONCE IRR Last administered on 09/29/18at 11:04; Start 09/29/18 at 06:00; Stop 09/29/18 at 07:00; Status DC Potassium Chloride 15 meq/ Sodium Bicarbonate 12.5 meq/Parenteral Electrolytes 520 ml @ 520 mls/hr 1X ONCE IRR Last administered on 09/29/18at 11:04; Start 09/29/18 at 06:00; Stop 09/29/18 at 07:00; Status DC Heparin Sodium (Porcine) 17810 unit/Ringer's Solution 1,020 ml @ 1,020 mls/hr 1X ONCE IRR Last administered on 09/29/18at 08:41; Start 09/29/18 at 06:00; Stop 09/29/18 at 07:00; Status DC Ondansetron HCl (Zofran) 4 mg PRN Q6HRS PRN IV NAUSEA/VOMITING; Start 09/29/18 at 07:00; Stop 09/30/18 at 06:59; Status DC Fentanyl Citrate (Fentanyl 2ml Vial) 25 mcg PRN Q5MIN PRN IV MILD PAIN 1-3; Start 09/29/18 at 07:00; Stop 09/30/18 at 06:59; Status DC Fentanyl Citrate (Fentanyl 2ml Vial) 50 mcg PRN Q5MIN PRN IV MODERATE TO SEVERE PAIN; Start 09/29/18 at 07:00; Stop 09/30/18 at 06:59; Status DC Morphine Sulfate (Morphine Sulfate) 1 mg PRN Q10MIN PRN IV SEVERE PAIN 7-10; Start 09/29/18 at 07:00; Stop 09/30/18 at 06:59; Status DC Ringer's Solution 1,000 ml @ 30 mls/hr Q24H IV Last administered on 09/29/18at 07:00; Start 09/29/18 at 07:00; Stop 09/29/18 at 18:59; Status DC Lidocaine HCl (Xylocaine-Mpf 1% 2ml Vial) 2 ml PRN 1X PRN ID PRIOR TO IV START; Start 09/29/18 at 07:00; Stop 09/30/18 at 06:59; Status DC Hydromorphone HCl (Dilaudid) 0.5 mg PRN Q10MIN PRN IV SEV PAIN, Second choice; Start 09/29/18 at 07:00; Stop 09/30/18 at 06:59; Status DC Prochlorperazine Edisylate (Compazine) 5 mg PACU PRN PRN IV NAUSEA, MRX1; Start 09/29/18 at 07:00; Stop 09/30/18 at 06:59; Status DC Cefazolin Sodium/ Dextrose 50 ml @ 100 mls/hr 1X PREOP PRN IV PRIOR TO PROCEDURE; Start 09/29/18 at 06:00; Stop 09/29/18 at 18:00; Status DC Insulin Human Regular 150 unit/ Sodium Chloride 151.5 ml @ 0 mls/hr CONT PRN IV SEE I/O RECORD; Start 09/29/18 at 06:00; Stop 09/29/18 at 15:31; Status DC Heparin Sodium (Porcine) 800 unit/ Nitroglycerin 4 mg/Verapamil HCl 8 mg/Sodium Bicarbonate 0.34 meq/Ringer's Solution 512.34 ml @ 512.34 mls/hr 1X ONCE IRR Last administered on 09/29/18at 08:31; Start 09/29/18 at 06:00; Stop 09/29/18 at 07:00; Status DC Etomidate (Amidate) 20 mg STK-MED ONCE IV ; Start 09/29/18 at 06:24; Stop at 06:25; Status DC Lidocaine HCl (Lidocaine Pf 2% Vial) 5 ml STK-MED ONCE .ROUTE ; Start 09/29/18 at 06:24; Stop 09/29/18 at 06:25; Status DC Heparin Sodium (Porcine) 30,000 unit STK-MED ONCE .ROUTE ; Start 09/29/18 at 06:24; Stop 09/29/18 at 06:25; Status DC Aminocaproic Acid (Amicar) 5,000 mg STK-MED ONCE IV ; Start 09/29/18 at 06:24; Stop 09/29/18 at 06:25; Status DC Phenylephrine HCl (Clarence-Synephrine Inj) 10 mg STK-MED ONCE .ROUTE ; Start 09/29/18 at 06:24; Stop 09/29/18 at 06:25; Status DC Ephedrine Sulfate (ePHEDrine PF IN SALINE SYRINGE) 50 mg STK-MED ONCE IV ; Start 09/29/18 at 06:24; Stop 09/29/18 at 06:25; Status DC Nitroglycerin/ Dextrose 250 ml @ As Directed STK-MED ONCE IV ; Start 09/29/18 at 06:24; Stop 09/29/18 at 06:25; Status DC Rocuronium [place] (Zemuron) 100 mg STK-MED ONCE .ROUTE ; Start 09/29/18 at 06:25; Stop 09/29/18 at 06:26; Status DC Sufentanil Citrate (Sufenta) 250 mcg STK-MED ONCE .ROUTE ; Start 09/29/18 at 06:26; Stop 09/29/18 at 06:27; Status DC Midazolam HCl (Versed) 2 mg STK-MED ONCE .ROUTE ; Start 09/29/18 at 06:27; Stop 09/29/18 at 06:28; Status DC Vancomycin HCl (VANCO for OR ONLY) 10 gm STK-MED ONCE .ROUTE Last administered on 09/29/18 08:41; Start 09/29/18 at 05:54; Stop 09/29/18 at 06:54; Status DC Cellulose (Surgicel Hemostat 4x8) 1 each STK-MED ONCE .ROUTE Last administered on 09/29/18 08:41; Start 09/29/18 at 05:54; Stop 09/29/18 at 06:54; Status DC Papaverine HCl 60 mg STK-MED ONCE .ROUTE Last administered on 09/29/18 08:41; Start 09/29/18 at 05:54; Stop 09/29/18 at 06:54; Status DC Sodium Chloride (SODIUM CHLORIDE 20ml) 20 ml STK-MED ONCE IJ Last administered on 09/29/18 08:41; Start 09/29/18 at 05:54; Stop 09/29/18 at 06:54; Status DC Aspirin (Aspirin Rectal Supp) 300 mg ONCE OR Last administered on 09/29/18at 15:49; Start 09/29/18 at 07:00; Stop 10/01/18 at 09:19; Status DC Sodium Chloride (SODIUM CHLORIDE 20ml) 20 ml STK-MED ONCE IJ Last administered on 09/29/18 08:41; Start 09/29/18 at 05:56; Stop 09/29/18 at 06:56; Status DC Sodium Chloride (SODIUM CHLORIDE 20ml) 20 ml STK-MED ONCE IJ Last administered on 09/29/18at 08:41; Start 09/29/18 at 05:56; Stop 09/29/18 at 06:56; Status DC Fentanyl Citrate (Fentanyl 2ml Vial) 100 mcg STK-MED ONCE .ROUTE ; Start 09/29/18 at 07:05; Stop 09/29/18 at 07:06; Status DC Heparin Sodium (Porcine) (Heparin Sodium) 10,000 unit STK-MED ONCE .ROUTE ; Start 09/29/18 at 07:27; Stop 09/29/18 at 07:28; Status DC Rocuronium [place] (Zemuron) 100 mg STK-MED ONCE .ROUTE ; Start 09/29/18 at 08:05; Stop 09/29/18 at 08:06; Status DC Propofol 20 ml @ As Directed STK-MED ONCE IV ; Start 09/29/18 at 08:42; Stop 09/29/18 at 08:43; Status DC Propofol 50 ml @ As Directed STK-MED ONCE IV ; Start 09/29/18 at 08:42; Stop 09/29/18 at 08:43; Status DC Protamine Sulfate (Protamine) 250 mg STK-MED ONCE IV ; Start 09/29/18 at 08:43; Stop 09/29/18 at 08:44; Status DC Protamine Sulfate (Protamine) 250 mg STK-MED ONCE IV ; Start 09/29/18 at 08:43; Stop 09/29/18 at 08:44; Status DC Cefazolin Sodium (Ancef) 1 gm STK-MED ONCE .ROUTE ; Start 09/29/18 at 08:43; Stop 09/29/18 at 08:44; Status DC Cefazolin Sodium (Ancef) 1 gm STK-MED ONCE .ROUTE ; Start 09/29/18 at 08:43; Stop 09/29/18 at 08:44; Status DC Dexamethasone Sodium Phosphate (Decadron) 20 mg STK-MED ONCE .ROUTE ; Start at 09:29; Stop 09/29/18 at 09:30; Status DC Aminocaproic Acid (Amicar) 5,000 mg STK-MED ONCE IV ; Start 09/29/18 at 11:37; Stop 09/29/18 at 11:38; Status DC Insulin Human Regular 150 unit/ Sodium Chloride 151.5 ml @ 1 mls/hr CONT PRN IV SEE I/O RECORD; Start 09/29/18 at 11:45; Status Cancel Propofol 50 ml @ As Directed STK-MED ONCE IV ; Start 09/29/18 at 12:04; Stop at 12:05; Status DC Rocuronium [place] (Zemuron) 50 mg STK-MED ONCE .ROUTE ; Start 09/29/18 at 12:37; Stop 09/29/18 at 12:38; Status DC Lidocaine HCl (Lidocaine Pf 2% Vial) 5 ml STK-MED ONCE .ROUTE ; Start 09/29/18 at 13:17; Stop 09/29/18 at 13:18; Status DC Amiodarone HCl 900 mg/Dextrose 518 ml @ 33 mls/hr CONT PRN IV SEE I/O RECORD; Start 09/29/18 at 13:30; Stop 09/29/18 at 15:31; Status DC Epinephrine HCl (EPINEPHrine SYRINGE) 1 mg STK-MED ONCE .ROUTE ; Start 09/29/18 at 13:27; Stop 09/29/18 at 13:28; Status DC Heparin Sodium (Porcine) (Heparin Sodium) 10,000 unit STK-MED ONCE .ROUTE ; Start 09/29/18 at 13:45; Stop 09/29/18 at 13:46; Status DC Lidocaine HCl (Lidocaine Pf 2% Vial) 5 ml STK-MED ONCE .ROUTE ; Start 09/29/18 at 13:45; Stop 09/29/18 at 13:46; Status DC Magnesium Sulfate 5 gm STK-MED ONCE .ROUTE ; Start 09/29/18 at 13:45; Stop 09/29/18 at 13:46; Status DC Heparin Sodium (Porcine) 30,000 unit STK-MED ONCE .ROUTE ; Start 09/29/18 at 13:45; Stop 09/29/18 at 13:46; Status DC Mannitol (Mannitol) 12.5 g STK-MED ONCE .ROUTE ; Start 09/29/18 at 13:45; Stop 09/29/18 at 13:46; Status DC Albumin Human 100 ml @ As Directed STK-MED ONCE IV ; Start 09/29/18 at 13:45; Stop 09/29/18 at 13:46; Status DC Calcium Chloride (Calcium Chloride) 1,000 mg STK-MED ONCE .ROUTE ; Start 09/29/18 at 13:45; Stop 09/29/18 at 13:46; Status DC Sodium Bicarbonate (Sodium Bicarb Adult 8.4% Syr) 50 meq STK-MED ONCE .ROUTE ; Start 09/29/18 at 13:45; Stop 09/29/18 at 13:46; Status DC Albumin Human 500 ml @ As Directed STK-MED ONCE IV ; Start 09/29/18 at 14:05; Stop 09/29/18 at 14:06; Status DC Nicardipine HCl 50 mg/Sodium Chloride 250 ml @ 25 mls/hr CONT PRN IV SEE I/O RECORD Last administered on 09/29/18at 19:17; Start 09/29/18 at 14:45; Stop 10/01/18 at 13:14; Status DC Sodium Chloride (Normal Saline Flush) 3 ml PRN Q12HR PRN IV AFTER MEDS AND BLOOD DRAWS; Start 09/29/18 at 15:15 Ringer's Solution 1,000 ml @ 30 mls/hr Q24H IV Last administered on 09/30/18at 11:49; Start 09/29/18 at 15:14; Stop 09/30/18 at 20:56; Status DC Albumin Human 250 ml @ 500 mls/hr PRN Q4HRS PRN IV SEE COMMENTS Last administered on 09/30/18at 11:48; Start 09/29/18 at 15:15; Stop 10/01/18 at 13:14; Status DC Insulin Human Regular 150 unit/ Sodium Chloride 151.5 ml @ 0 mls/hr CONT PRN PRN IV PER PROTOCOL Last administered on 09/29/18at 15:20; Start 09/29/18 at 15:15; Stop 10/01/18 at 13:14; Status DC Dextrose (Dextrose 50%-Water Syringe) 25 gm PRN Q15MIN PRN IV LOW BLOOD SUGAR; Start 09/29/18 at 15:15 Nitroglycerin/ Dextrose 250 ml @ 0 mls/hr CONT PRN PRN IV POST CV SURGERY; Start 09/29/18 at 15:15 Phenylephrine HCl 20 mg/Sodium Chloride 252 ml @ 0 mls/hr CONT PRN PRN IV HYPOTENSION; Start 09/29/18 at 15:15 Amiodarone HCl 900 mg/Dextrose 518 ml @ 0 mls/hr CONT PRN PRN IV AFIB Last ad ministered on 09/29/18at 15:20; Start 09/29/18 at 15:15 Info (KCl Per Protocol) 1 ea CONT PRN PRN MC SEE COMMENTS; Start 09/29/18 at 15:15; Stop 10/01/18 at 13:14; Status DC Magnesium Sulfate/ Dextrose 100 ml @ 100 mls/hr PRN DAILY PRN IV FOR MAG < 2.2; Start 09/29/18 at 15:15 Famotidine (Pepcid Vial) 20 mg BID IVP Last administered on 10/03/18at 08:23; Start 09/29/18 at 21:00 Ondansetron HCl (Zofran) 4 mg PRN Q4HRS PRN IV NAUSEA/VOMITING, 1st CHOICE Last administered on 10/03/18 08:24; Start 09/29/18 at 15:15 Prochlorperazine Edisylate (Compazine) 10 mg PRN Q6HRS PRN IV NAUSEA/VOMITING, 2nd CHOICE; Start 09/29/18 at 15:15 Metoclopramide HCl (Reglan Vial) 10 mg PRN Q6HRS PRN IV NAUSEA/VOMITING, 3rd CHOICE; Start 09/29/18 at 15:15 Morphine Sulfate (Morphine Sulfate) 2 mg PRN Q1HR PRN IV PAIN MILD TO MOD Last administered on 09/30/18at 19:28; Start 09/29/18 at 15:15 Morphine Sulfate (Morphine Sulfate) 4 mg PRN Q1HR PRN IV PAIN SEVERE Last administered on 09/30/18at 09:10; Start 09/29/18 at 15:15 Acetaminophen (Tylenol) 650 mg PRN Q4HRS PRN PO TEMP > 101'F or PAIN Last administered on 10/03/18 08:30; Start 09/29/18 at 15:15 Acetaminophen (Tylenol Supp) 650 mg PRN Q4HRS PRN OR TEMP > 101'F or MILD PAIN; Start 09/29/18 at 15:15 Meperidine HCl (Demerol) 12.5 mg PRN Q15MIN PRN IV SHIVERING; Start 09/29/18 at 15:15; Stop 09/30/18 at 15:14; Status DC Propofol 100 ml @ 0 mls/hr CONT PRN PRN IV POSTOP SEDATION UNTIL EXTUBATE Last administered on 09/29/18at 17:20; Start 09/29/18 at 15:15; Stop 10/01/18 at 13:14; Status DC Senna/Docusate Sodium (Senna Plus) 1 tab BID PO Last administered on 10/03/18at 08:29; Start 09/29/18 at 21:00 Bisacodyl (Dulcolax Supp) 10 mg PRN DAILY PRN OR NO BOWEL MOVEMENT; Start 09/29/18 at 15:15 Chlorhexidine Gluconate (Peridex) 15 ml BID MM ; Start 09/30/18 at 09:00; Stop 09/30/18 at 20:56; Status DC Aspirin (Ecotrin) 325 mg DAILYWBKFT PO Last administered on 10/03/18at 08:31; Start 09/30/18 at 08:00 Aspirin (Aspirin Rectal Supp) 300 mg PRN DAILY PRN OR IF UNABLE TO TAKE PO; Start 09/30/18 at 08:00 Albuterol Sulfate (Ventolin Neb Soln) 2.5 mg PRN Q4HRS PRN NEB SHORTNESS OF BREATH Last administered on 09/30/18at 17:13; Start 09/29/18 at 15:15 Metoprolol Tartrate (Lopressor) 25 mg BID PO ; Start 09/30/18 at 09:00; Stop 10/01/18 at 13:14; Status DC Nicardipine HCl 50 mg/Sodium Chloride 250 ml @ 0 mls/hr CONT PRN PRN IV PER PROTOCOL; Start 09/29/18 at 15:15; Status UNV Oxycodone HCl (Roxicodone) 5 mg PRN Q4HRS PRN PO MILD TO MODERATE PAIN Last administered on 10/03/18at 11:39; Start 09/29/18 at 15:15 Oxycodone HCl (Roxicodone) 10 mg PRN Q4HRS PRN PO SEVERE PAIN Last administered on 10/01/18at 08:33; Start 09/29/18 at 15:15 Cefazolin Sodium/ Dextrose 50 ml @ 100 mls/hr Q8H IV Last administered on 10/01/18at 04:33; Start 09/29/18 at 20:15; Stop 10/01/18 at 04:44; Status DC Sodium Bicarbonate (Sodium Bicarb Adult 8.4% Syr) 100 meq 1X ONCE IV Last administered on 09/29/18at 16:00; Start 09/29/18 at 16:00; Stop 09/29/18 at 16:01; Status DC Sodium Bicarbonate (Sodium Bicarb Adult 8.4% Syr) 50 meq STK-MED ONCE .ROUTE ; Start 09/29/18 at 15:57; Stop 09/29/18 at 15:58; Status DC Potassium Chloride/Water 50 ml @ 50 mls/hr Q1H IV Last administered on 09/29/18at 18:09; Start 09/29/18 at 17:00; Stop 09/29/18 at 18:59; Status DC Amiodarone HCl 150 mg/Dextrose 103 ml @ 618 mls/hr 1X ONCE IV Last administered on 09/29/18at 21:02; Start 09/29/18 at 21:15; Stop 09/29/18 at 21:24; Status DC Cefazolin Sodium/ Dextrose (Ancef 2gm Premix) 2 gm STK-MED ONCE IV ; Start 09/29/18 at 06:00; Stop 09/30/18 at 11:09; Status DC Furosemide (Lasix) 20 mg 1X ONCE IVP Last administered on 09/30/18at 11:46; Start 09/30/18 at 11:30; Stop 09/30/18 at 11:31; Status DC Amiodarone HCl (Cordarone) 200 mg BID PO Last administered on 10/01/18at 20:53; Start 09/30/18 at 15:00; Stop 10/01/18 at 22:47; Status DC Insulin Human Lispro (HumaLOG) 0-5 UNITS TIDWMEALS SQ Last administered on 10/01/18at 12:22; Start 09/30/18 at 17:00 Dextrose (Dextrose 50%-Water Syringe) 12.5 gm PRN Q15MIN PRN IV SEE COMMENTS; Start 09/30/18 at 14:00 Albuterol/ Ipratropium (Duoneb) 3 ml 1X ONCE NEB Last administered on 09/30/18at 14:05; Start 09/30/18 at 14:00; Stop 09/30/18 at 14:01; Status DC Furosemide (Lasix) 60 mg 1X ONCE IVP Last administered on 09/30/18at 18:12; Start 09/30/18 at 18:30; Stop 09/30/18 at 18:31; Status DC Dopamine HCl/ Dextrose 250 ml @ 0 mls/hr CONT PRN IV SEE I/O RECORD Last administered on 09/30/18at 18:15; Start 09/30/18 at 18:00 Insulin Glargine (Lantus) 10 units 1X ONCE SQ Last administered on 09/30/18at 20:42; Start 09/30/18 at 18:15; Stop 09/30/18 at 18:16; Status DC Norepinephrine Bitartrate 250 ml @ 17.605 mls/ hr CONT PRN IV SEE I/O RECORD Last administered on 09/30/18 19:09; Start 09/30/18 at 19:00 Alprazolam (Xanax) 0.25 mg 1X ONCE PO Last administered on 09/30/18at 20:40; Start 09/30/18 at 21:00; Stop 09/30/18 at 21:01; Status DC Sodium Chloride 1,000 ml @ 50 mls/hr Q20H IV Last administered on 10/02/18at 18:36; Start 09/30/18 at 20:45 Atorvastatin Calcium (Lipitor) 40 mg QHS PO Last administered on 10/02/18 20:35; Start 10/01/18 at 21:00 Amiodarone HCl (Cordarone) 400 mg BID PO Last administered on 10/03/18 08:31; Start 10/02/18 at 09:00 Amiodarone HCl (Cordarone) 200 mg 1X ONCE PO Last administered on 10/01/18at 23:05; Start 10/01/18 at 23:00; Stop 10/01/18 at 23:01; Status DC Alprazolam (Xanax) 0.25 mg PRN QHS PRN PO ANXIETY / AGITATION Last administered on 10/03/18 08:29; Start 10/01/18 at 23:00 Metoprolol Tartrate (Lopressor) 12.5 mg BID PO Last administered on 10/03/18 08:31; Start 10/02/18 at 21:00 Bisacodyl (Dulcolax Supp) 10 mg 1X ONCE OR Last administered on 10/02/18at 16:49; Start 10/02/18 at 16:30; Stop 10/02/18 at 16:31; Status DC Dextrose 250 ml PRN Q15MIN PRN IV SEE COMMENTS; Start 10/03/18 at 08:00 Active Scripts Active Reported Atorvastatin Calcium 40 Mg Tablet 1 Tab PO DAILY Lisinopril 10 Mg Tablet 1 Tab PO DAILY Zolpidem Tartrate 10 Mg Tablet 5 Mg PO PRN QHS PRN Vitals/I & O Vital Sign - Last 24 Hours 10/02/18 10/02/18 10/02/18 10/02/18 13:00 14:00 15:00 16:00 Temp 98.5 98.5 Pulse 80 78 80 81 Resp 20 24 23 26 B/P (MAP) 121/68 (85) 139/64 (89) 136/65 (88) 128/71 (90) Pulse Ox 95 95 93 93 O2 Delivery Nasal Cannula Nasal Cannula Nasal Cannula Nasal Cannula O2 Flow Rate 2.0 2.0 2.0 2.0 10/02/18 10/02/18 10/02/18 10/02/18 16:00 18:30 20:00 20:35 Temp 98.4 98.4 Pulse 93 93 Resp 26 B/P (MAP) 120/73 (89) 120/73 Pulse Ox 94 O2 Delivery Nasal Cannula Room Air Nasal Cannula O2 Flow Rate 2.0 3.0 10/02/18 10/02/18 10/03/18 10/03/18 20:36 23:21 03:28 07:00 Temp 98.4 97.6 97.6 98.4 97.6 97.6 Pulse 93 67 68 83 Resp 20 18 20 B/P (MAP) 120/73 115/61 (79) 112/63 (79) 114/58 (76) Pulse Ox 93 96 91 O2 Delivery Nasal Cannula Nasal Cannula Nasal Cannula O2 Flow Rate 3.0 3.0 3.0 10/03/18 10/03/18 10/03/18 10/03/18 08:00 08:31 08:31 11:00 Temp 97.4 97.4 Pulse 78 78 69 Resp 18 B/P (MAP) 114/58 114/58 112/63 (79) Pulse Ox 96 O2 Delivery Nasal Cannula Nasal Cannula O2 Flow Rate 3.0 3.0 10/03/18 11:39 Pulse Ox 91 O2 Delivery Nasal Cannula O2 Flow Rate 3.0 Intake and Output 10/02/18 10/02/18 10/03/18 15:00 23:00 07:00 Intake Total 790 ml 1315 ml Output Total 730 ml 151 ml 1100 ml Balance 60 ml 1164 ml -1100 ml MEGA NELSON MD Oct 03, 2018 12:44
[2018-10-03 14:12] LABS: CALCIUM 8.2 mg/dL (8.5-10.1); CREATININE 1.4 mg/dL (0.7-1.3); GFR 49.4; POTASSIUM 4.9 mmol/L (3.5-5.1)
[2018-10-03 15:00] VITALS: BP 112/63
[2018-10-03 19:00] VITALS: BP 133/66
--- NOTE | 2018-10-03 19:13 | NUR ---
Ambulated in the [place] at this time with walker and O2 3L NC. Tolerated activity well. Back in room sitting up in chair with call light at hand.
--- NOTE | 2018-10-03 19:33 | NUR ---
Patient refuse nurse to dc Delvis. Pt states his is scare and that he will wet bed and cause problems for nurses over night. We wants Delvis taken out in AM. . notified.
[2018-10-03] MEDS: ATORVASTATIN CALCIUM 40 MG TABLET. PO SCH (20:08)
[2018-10-03 22:52] VITALS: BP 110/58
[2018-10-04] MEDS: IV NORMAL SALINE 1000ML BAG 1,000 ML IV SCH (02:39)
[2018-10-04 02:57] VITALS: BP 120/64
[2018-10-04 05:26] LABS: CALCIUM 8.5 mg/dL (8.5-10.1); CREATININE 1.2 mg/dL (0.7-1.3); POTASSIUM 4.7 mmol/L (3.5-5.1)
[2018-10-04 07:00] VITALS: BP 113/72
[2018-10-04] MEDS: INSULIN LISPRO 300 UNITS/3 ML INSULN.PEN. SQ SCH ×3 (08:00→17:00)
[2018-10-04] MEDS: METOPROLOL TART IMMED RELEASE 25 MG TABLET. PO SCH ×2 (09:15→20:26)
[2018-10-04] MEDS: ASPIRIN ENTERIC COATED 325 MG TABLET.DR. PO SCH (09:15)
[2018-10-04] MEDS: AMIODARONE HCL 200 MG TABLET. PO SCH ×2 (09:16→20:26)
[2018-10-04] MEDS: oxyCODONE IR 5 MG TABLET PO PRN ×2 (09:16→20:28)
[2018-10-04] MEDS: SENNOSIDES/DOCUSATE 8.6/50MG TABLET. PO SCH ×2 (09:16→20:25)
[2018-10-04] MEDS: FAMOTIDINE 20 MG/2 ML VIAL IVP SCH (09:17)
--- NOTE | 2018-10-04 10:54 | PDOC ---
Provider Note Provider Note vss, bp good as is output- creat down to 1.2 so full recovery, rest lab ok- will dc iv saline and follow- exam wnl, nsr, will likely need rehab MARGOT GOMES MD Oct 04, 2018 10:54
[2018-10-04 11:00] VITALS: BP 116/64
--- NOTE | 2018-10-04 12:23 | NUR ---
Post Residual 19 ml. Will continue to monitor.
--- NOTE | 2018-10-04 12:50 | PDOC ---
PROGRESS NOTES Subjective Subjective Feeling better today. Objective Objective Vital Signs Date Time Temp Pulse Resp B/P (MAP) Pulse Ox O2 Delivery O2 Flow Rate FiO2 10/04/18 10:16 96 Nasal Cannula 2.0 10/04/18 09:16 78 113/72 10/04/18 07:00 98.2 22 98.2 Intake and Output 10/04/18 07:00 Intake Total 480 ml Output Total 1750 ml Balance -1270 ml Intake Oral 480 ml Output Urine Total 1750 ml Physical Exam Abdomen: Normal bowel sounds, Soft, No tenderness, No hepatosplenomegaly, No masses Heart: Regular rate, Normal S1, Normal S2, No murmurs, Gallops Extremities: No clubbing, No cyanosis, No edema, Normal pulses, No tenderness/swelling General: Alert, Oriented X3, Cooperative, No acute distress HEENT: Atraumatic, Mucous membr. moist/pink Lungs: Clear to auscultation, Normal air movement Neuro: Normal speech, Sensation intact Psych/Mental Status: Mental status NL, Mood NL Skin: No breakdown, No significant lesion Diagnosis RENAL FAILURE: Acute (Acute tubular necrosis) Assessment Assessment 1. 3VD: S/P CABG x 4 (JONES to LAD, radial to OM, SVG to RPL, SVG to RPDA) POD#5: CT's and pacer wires out, post op care per CTS. Continue beta blockers and PT/OT 2. Post op atrial fibrillation: Tele showed atrial flutter, HR controlled. Continue amiodarone. Start Eliquis when okay from surgical standpoint, ?prior to DC and consider outpatient cardioversion in 3-4 weeks. 3. HTN: controlled 4. HLP: statins 5. DOROTA on CKD3/mild hyperkalemia: with past right nephrectomy from renal CA. Cr improved to 1.2 today. Nephrology following Plan Plan of Care Problems Medical Problems: (1) 3-vessel coronary artery disease Status: Chronic (2) Chronic renal failure Status: Chronic (3) Diabetes Status: Chronic (4) HTN (hypertension) Status: Chronic (5) Morbid obesity Status: Chronic (6) Stable angina Status: Acute Comment Review of Relevant I have reviewed the following items sang (where applicable) has been applied. Labs Laboratory Tests Test 10/03/18 13:50 10/03/18 17:16 10/03/18 20:07 10/04/18 04:00 Sodium Level 140 mmol/L (136-145) 139 mmol/L (136-145) Potassium Level 4.9 mmol/L (3.5-5.1) 4.7 mmol/L (3.5-5.1) Chloride Level 105 mmol/L (98-107) 105 mmol/L (98-107) Carbon Dioxide Level 25 mmol/L (21-32) 24 mmol/L (21-32) Anion Gap 10 (6-14) 10 (6-14) Blood Urea Nitrogen 47 mg/dL (8-26) 38 mg/dL (8-26) Creatinine 1.4 mg/dL (0.7-1.3) 1.2 mg/dL (0.7-1.3) Estimated GFR (Cockcroft-Gault) 49.4 59.0 Glucose Level 134 mg/dL (70-99) 110 mg/dL (70-99) Calcium Level 8.2 mg/dL (8.5-10.1) 8.5 mg/dL (8.5-10.1) Glucose (Fingerstick) 91 mg/dL (70-99) 132 mg/dL (70-99) Test 10/04/18 07:39 10/04/18 12:07 Glucose (Fingerstick) 100 mg/dL (70-99) 94 mg/dL (70-99) Vitals/I & O Vital Sign - Last 24 Hours 10/03/18 10/03/18 10/03/18 10/03/18 15:00 19:00 20:00 20:08 Temp 97.4 98.0 97.4 98.0 Pulse 69 70 69 Resp 19 B/P (MAP) 112/63 (79) 133/66 (88) 112/63 Pulse Ox 91 99 O2 Delivery Nasal Cannula Nasal Cannula Nasal Cannula O2 Flow Rate 3.0 3.0 3.0 10/03/18 10/03/18 10/04/18 10/04/18 20:09 22:52 02:57 07:00 Temp 98.3 97.7 98.2 98.3 97.7 98.2 Pulse 69 70 68 71 Resp 18 19 22 B/P (MAP) 112/63 110/58 (75) 120/64 (82) 113/72 (86) Pulse Ox 97 97 94 O2 Delivery Nasal Cannula Nasal Cannula Nasal Cannula O2 Flow Rate 3.0 3.0 3.0 10/04/18 10/04/18 10/04/18 10/04/18 09:15 09:16 09:16 10:16 Pulse 78 78 B/P (MAP) 113/72 113/72 Pulse Ox 94 96 O2 Delivery Nasal Cannula Nasal Cannula O2 Flow Rate 3.0 2.0 Intake and Output 10/03/18 10/03/18 10/04/18 15:00 23:00 07:00 Intake Total 480 ml Output Total 1200 ml 550 ml Balance -720 ml -550 ml SANDRA GARCIA MD Oct 04, 2018 12:50
--- NOTE | 2018-10-04 13:01 | PDOC ---
Provider Note Provider Note Rate controlled AFlutter, normotensive. Edmondson out, excellent UO. Creatinine back to normal. On 2 lit NC. Plan OK to start anticoagulation tomorrow for AFlutter Dispo planning. Will need rehab. OK to d/c to rehab on Friday from CTS standpoint RANJAN FONTAINE MD Oct 04, 2018 13:01
[2018-10-04 15:00] VITALS: BP 132/63
[2018-10-04 19:00] VITALS: BP 112/65
[2018-10-04] MEDS: ATORVASTATIN CALCIUM 40 MG TABLET. PO SCH (20:25)
[2018-10-04] MEDS: FAMOTIDINE 20 MG TABLET. PO SCH (20:26)
[2018-10-04 23:00] VITALS: BP 114/63
[2018-10-05 03:00] VITALS: BP 102/40
[2018-10-05 07:00] VITALS: BP 117/63
--- NOTE | 2018-10-05 07:52 | PDOC ---
GENERAL General: vss and afebrile. awake and alert. some sob with exertion and concerned about s welling in legs. chest essentially clear, heart regular, abdomen benign. 1-2+ edema legs. creatinine back down to 1.2. for rehab soon. VITAL SIGNS/I&O Vital Signs/I&O: Vital Signs Date Time Temp Pulse Resp B/P (MAP) Pulse Ox O2 Delivery O2 Flow Rate FiO2 10/05/18 03:00 98.5 70 18 102/40 (60) Nasal Cannula 3.0 98.5 10/04/18 23:00 93 I & O 10/04/18 10/04/18 10/05/18 15:00 23:00 07:00 Intake Total 480 ml 200 ml 500 ml Output Total 975 ml 400 ml 500 ml Balance -495 ml -200 ml 0 ml ALLERGIES Allergies: Allergies Coded Allergies Type Severity Reaction Last Updated Verified No Known Drug Allergies 08/11/14 No MEDS Medications: Current Medications Medications (Trade) Dose Ordered Sig/Claudio Route PRN Reason Start Time Stop Time Status Last Admin Dose Admin Famotidine (Pepcid) 20 mg BID PO 10/04/18 21:00 10/04/18 20:26 LAB Lab: Laboratory Tests Test 10/04/18 12:07 10/04/18 16:24 Glucose (Fingerstick) 94 mg/dL (70-99) 103 mg/dL (70-99) PAM JOHNSTON MD Oct 05, 2018 07:52
[2018-10-05] MEDS: INSULIN LISPRO 300 UNITS/3 ML INSULN.PEN. SQ SCH ×3 (08:00→17:00)
[2018-10-05] MEDS: FAMOTIDINE 20 MG TABLET. PO SCH ×2 (08:30→22:02)
[2018-10-05] MEDS: SENNOSIDES/DOCUSATE 8.6/50MG TABLET. PO SCH ×2 (08:30→22:02)
[2018-10-05] MEDS: METOPROLOL TART IMMED RELEASE 25 MG TABLET. PO SCH ×2 (08:30→22:05)
[2018-10-05] MEDS: AMIODARONE HCL 200 MG TABLET. PO SCH ×2 (08:31→22:06)
[2018-10-05] MEDS: ASPIRIN ENTERIC COATED 325 MG TABLET.DR. PO SCH (08:31)
[2018-10-05] MEDS: oxyCODONE IR 5 MG TABLET PO PRN (08:35)
--- NOTE | 2018-10-05 09:25 | PDOC ---
SUBJECTIVE ROS Ambulating ,feeling well, states has noticed some LE swelling OBJECTIVE Vital Signs Vital Signs Date Time Temp Pulse Resp B/P (MAP) Pulse Ox O2 Delivery O2 Flow Rate FiO2 10/05/18 08:31 78 117/63 10/05/18 07:00 98.1 24 96 Room Air 98.1 10/05/18 03:00 3.0 I & 0 Intake and Output 10/05/18 07:00 Intake Total 1180 ml Output Total 1875 ml Balance -695 ml Intake Oral 1180 ml Output Urine Total 1875 ml # Voids 3 PHYSICAL EXAM Physical Exam General: Alert, Oriented X3, No acute distress HEENT: OM moist Neck Supple Lungs: Clear to auscultation Heart: S1S2, RRR, Abdomen: Soft, No tenderness, Extremities: No edema Skin: No significant lesion Neuro: Grossly normal DIAGNOSIS/ASSESSMENT Assessment & Plan DOROTA -ATN s/p cardiac cath 09/11 - Cr was 1.2 S/P CABG 09/29, improving renal function (1.2 )- no labs today No hydronephrosis on CT , E-Lytes and acid base stable CAD s/p CABG 09/29 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 Renal US Hypernatremia- resolved Anemia- Per primary Edema- recommend restart Lasix PO Dw Rn Will Sign off COMMENT/RELEVANT DATA Meds Current Medications Medications (Trade) Dose Ordered Sig/Claudio Start Time Stop Time Status Last Admin Dose Admin Acetaminophen (Tylenol Supp) 650 mg PRN Q4HRS PRN 09/29/18 15:15 Acetaminophen (Tylenol) 650 mg PRN Q4HRS PRN 09/29/18 15:15 10/03/18 20:08 650 MG Albumin Human 250 ml @ 500 mls/hr PRN Q4HRS PRN 09/29/18 15:15 10/01/18 13:14 DC 09/30/18 11:48 500 MLS/HR Albuterol Sulfate (Ventolin Neb Soln) 2.5 mg PRN Q4HRS PRN 09/29/18 15:15 09/30/18 17:13 2.5 MG Albuterol/ Ipratropium (Duoneb) 3 ml 1X ONCE 09/30/18 14:00 09/30/18 14:01 DC 09/30/18 14:05 3 ML Alprazolam (Xanax) 0.25 mg PRN QHS PRN 10/01/18 23:00 10/03/18 08:29 0.25 MG Aminocaproic Acid (Amicar) 5,000 mg STK-MED ONCE 09/29/18 11:37 09/29/18 11:38 DC Amiodarone HCl (Cordarone) 200 mg 1X ONCE 10/01/18 23:00 10/01/18 23:01 DC 10/01/18 23:05 200 MG Amiodarone HCl 150 mg/Dextrose 103 ml @ 618 mls/hr 1X ONCE 09/29/18 21:15 09/29/18 21:24 DC 09/29/18 21:02 618 MLS/HR Amiodarone HCl 900 mg/Dextrose 518 ml @ 0 mls/hr CONT PRN PRN 09/29/18 15:15 09/29/18 15:20 16.7 MLS/HR Aspirin (Aspirin Rectal Supp) 300 mg PRN DAILY PRN 09/30/18 08:00 Aspirin (Ecotrin) 325 mg DAILYWBKFT 09/30/18 08:00 10/05/18 08:31 325 MG Atorvastatin Calcium (Lipitor) 40 mg QHS 10/01/18 21:00 10/04/18 20:25 40 MG Bisacodyl (Dulcolax Supp) 10 mg 1X ONCE 10/02/18 16:30 10/02/18 16:31 DC 10/02/18 16:49 10 MG Calcium Chloride (Calcium Chloride) 1,000 mg STK-MED ONCE 09/29/18 13:45 09/29/18 13:46 DC Cefazolin Sodium (Ancef) 1 gm STK-MED ONCE 09/29/18 08:43 09/29/18 08:44 DC Cefazolin Sodium 1 gm/Sodium Chloride 500 ml @ 500 mls/hr 1X ONCE 09/29/18 06:00 09/29/18 07:00 DC 09/29/18 08:41 Cefazolin Sodium/ Dextrose (Ancef 2gm Premix) 2 gm STK-MED ONCE 09/29/18 06:00 09/30/18 11:09 DC Cellulose (Surgicel Hemostat 4x8) 1 each STK-MED ONCE 09/29/18 05:54 09/29/18 06:54 DC 09/29/18 08:41 1 EACH Chlorhexidine Gluconate (Peridex) 15 ml BID 09/30/18 09:00 09/30/18 20:56 DC Dexamethasone Sodium Phosphate (Decadron) 20 mg STK-MED ONCE 09/29/18 09:29 09/29/18 09:30 DC Dextrose 250 ml PRN Q15MIN PRN 10/03/18 08:00 Dextrose (Dextrose 50%-Water Syringe) 12.5 gm PRN Q15MIN PRN 09/30/18 14:00 Dopamine HCl/ Dextrose 250 ml @ 0 mls/hr CONT PRN 09/30/18 18:00 09/30/18 18:15 9.3 MLS/HR Ephedrine Sulfate (ePHEDrine PF IN SALINE SYRINGE) 50 mg STK-MED ONCE 09/29/18 06:24 09/29/18 06:25 DC Epinephrine HCl (EPINEPHrine SYRINGE) 1 mg STK-MED ONCE 09/29/18 13:27 09/29/18 13:28 DC Etomidate (Amidate) 20 mg STK-MED ONCE 09/29/18 06:24 09/29/18 06:25 DC Famotidine (Pepcid Vial) 20 mg BID 09/29/18 21:00 10/04/18 20:02 DC 10/04/18 09:17 20 MG Famotidine (Pepcid) 20 mg BID 10/04/18 21:00 10/05/18 08:30 20 MG Fentanyl Citrate (Fentanyl 2ml Vial) 100 mcg STK-MED ONCE 09/29/18 07:05 09/29/18 07:06 DC Furosemide (Lasix) 60 mg 1X ONCE 09/30/18 18:30 09/30/18 18:31 DC 09/30/18 18:12 60 MG Heparin Sodium (Porcine) 30,000 unit STK-MED ONCE 09/29/18 13:45 09/29/18 13:46 DC Heparin Sodium (Porcine) (Heparin Sodium) 10,000 unit STK-MED ONCE 09/29/18 13:45 09/29/18 13:46 DC Heparin Sodium (Porcine) 54173 unit/Ringer's Solution 1,020 ml @ 1,020 mls/hr 1X ONCE 09/29/18 06:00 09/29/18 07:00 DC 09/29/18 08:41 Heparin Sodium (Porcine) 800 unit/ Nitroglycerin 4 mg/Verapamil HCl 8 mg/Sodium Bicarbonate 0.34 meq/Ringer's Solution 512.34 ml @ 512.34 mls/hr 1X ONCE 09/29/18 06:00 09/29/18 07:00 DC 09/29/18 08:31 Hydromorphone HCl (Dilaudid) 0.5 mg PRN Q10MIN PRN 09/29/18 07:00 09/30/18 06:59 DC Info (KCl Per Protocol) 1 ea CONT PRN PRN 09/29/18 15:15 10/01/18 13:14 DC Insulin Glargine (Lantus) 10 units 1X ONCE 09/30/18 18:15 09/30/18 18:16 DC 09/30/18 20:42 10 UNITS Insulin Human Lispro (HumaLOG) 0-5 UNITS TIDWMEALS 09/30/18 17:00 10/01/18 12:22 2 UNITS Insulin Human Regular 150 unit/ Sodium Chloride 151.5 ml @ 0 mls/hr CONT PRN PRN 09/29/18 15:15 10/01/18 13:14 DC 09/29/18 15:20 2 MLS/HR Lidocaine HCl (Lidocaine Pf 2% Vial) 5 ml STK-MED ONCE 09/29/18 13:45 09/29/18 13:46 DC Lidocaine HCl (Xylocaine-Mpf 1% 2ml Vial) 2 ml PRN 1X PRN 09/29/18 07:00 09/30/18 06:59 DC Magnesium Sulfate 5 gm STK-MED ONCE 09/29/18 13:45 09/29/18 13:46 DC Magnesium Sulfate/ Dextrose 100 ml @ 100 mls/hr PRN DAILY PRN 09/29/18 15:15 Mannitol (Mannitol) 12.5 g STK-MED ONCE 09/29/18 13:45 09/29/18 13:46 DC Meperidine HCl (Demerol) 12.5 mg PRN Q15MIN PRN 09/29/18 15:15 09/30/18 15:14 DC Metoclopramide HCl (Reglan Vial) 10 mg PRN Q6HRS PRN 09/29/18 15:15 Metoprolol Tartrate (Lopressor) 12.5 mg BID 10/02/18 21:00 10/05/18 08:30 12.5 MG Midazolam HCl (Versed) 2 mg STK-MED ONCE 09/29/18 06:27 09/29/18 06:28 DC Morphine Sulfate (Morphine Sulfate) 4 mg PRN Q1HR PRN 09/29/18 15:15 09/30/18 09:10 4 MG Nicardipine HCl 50 mg/Sodium Chloride 250 ml @ 0 mls/hr CONT PRN PRN 09/29/18 15:15 UNV Nitroglycerin/ Dextrose 250 ml @ 0 mls/hr CONT PRN PRN 09/29/18 15:15 Norepinephrine Bitartrate 250 ml @ 17.605 mls/ hr CONT PRN 09/30/18 19:00 09/30/18 19:09 8.803 MLS/HR Ondansetron HCl (Zofran) 4 mg PRN Q4HRS PRN 09/29/18 15:15 10/03/18 08:24 4 MG Oxycodone HCl (Roxicodone) 10 mg PRN Q4HRS PRN 09/29/18 15:15 10/01/18 08:33 10 MG Papaverine HCl 60 mg STK-MED ONCE 09/29/18 05:54 09/29/18 06:54 DC 09/29/18 08:41 60 MG Phenylephrine HCl (Clarence-Synephrine Inj) 10 mg STK-MED ONCE 09/29/18 06:24 09/29/18 06:25 DC Phenylephrine HCl 20 mg/Sodium Chloride 252 ml @ 0 mls/hr CONT PRN PRN 09/29/18 15:15 Potassium Chloride 15 meq/ Sodium Bicarbonate 12.5 meq/Parenteral Electrolytes 520 ml @ 520 mls/hr 1X ONCE 09/29/18 06:00 09/29/18 07:00 DC 09/29/18 11:04 520 MLS/HR Potassium Chloride 70 meq/ Sodium Bicarbonate 12.5 meq/Lidocaine HCl 24 ml/Parenteral Electrolytes 571.5 ml @ 571.5 mls/ hr 1X ONCE 09/29/18 06:00 09/29/18 07:00 DC 09/29/18 11:04 571.5 MLS/HR Potassium Chloride/Water 50 ml @ 50 mls/hr Q1H 09/29/18 17:00 09/29/18 18:59 DC 09/29/18 18:09 50 MLS/HR Prochlorperazine Edisylate (Compazine) 10 mg PRN Q6HRS PRN 09/29/18 15:15 Propofol 100 ml @ 0 mls/hr CONT PRN PRN 09/29/18 15:15 10/01/18 13:14 DC 09/29/18 17:20 10 MLS/HR Protamine Sulfate (Protamine) 250 mg STK-MED ONCE 09/29/18 08:43 09/29/18 08:44 DC Ringer's Solution 1,000 ml @ 30 mls/hr Q24H 09/29/18 15:14 09/30/18 20:56 DC 09/30/18 11:49 30 MLS/HR Rocuronium Reinbeck (Zemuron) 50 mg STK-MED ONCE 09/29/18 12:37 09/29/18 12:38 DC Senna/Docusate Sodium (Senna Plus) 1 tab BID 09/29/18 21:00 10/05/18 08:30 1 TAB Sodium Bicarbonate (Sodium Bicarb Adult 8.4% Syr) 50 meq STK-MED ONCE 09/29/18 15:57 09/29/18 15:58 DC Sodium Chloride 1,000 ml @ 50 mls/hr Q20H 09/30/18 20:45 10/04/18 10:45 DC 10/02/18 18:36 50 MLS/HR Sodium Chloride (Normal Saline Flush) 3 ml PRN Q12HR PRN 09/29/18 15:15 Sodium Chloride (SODIUM CHLORIDE 20ml) 20 ml STK-MED ONCE 09/29/18 05:56 09/29/18 06:56 DC 09/29/18 08:41 20 ML Sufentanil Citrate (Sufenta) 250 mcg STK-MED ONCE 09/29/18 06:26 09/29/18 06:27 DC Vancomycin HCl (VANCO for OR ONLY) 10 gm STK-MED ONCE 09/29/18 05:54 09/29/18 06:54 DC 09/29/18 08:41 10 GM Lab Laboratory Tests Test 10/04/18 12:07 10/04/18 16:24 10/05/18 08:20 Glucose (Fingerstick) 94 mg/dL (70-99) 103 mg/dL (70-99) 107 mg/dL (70-99) Results All relevant outside records, renal labs, imaging studies, telemetry/EKG's were reviewed. VIKRAM MEDINA MD Oct 05, 2018 09:25
[2018-10-05 11:00] VITALS: BP 106/55
--- NOTE | 2018-10-05 11:19 | NUR ---
SS following up with discharge planning. SS met with pt and pt's family in room per request. Pt's spouse reported that she would like to know if pt will qualify for inpatient rehabilitation at [facility]. SS discussed rehabilitation and Medicare guidelines. PT/OT ordered. SS will await PT/OT evaluations and recommendations and will proceed accordingly with discharge planning.
--- NOTE | 2018-10-05 12:37 | PDOC ---
Progress Note Subjective Subjective Doing overall well. Normotensive. AFlutter, 70s. Creatinine normal. Appears slightly volume overloaded. On 2 lit NC. Having BMs ROS ROS No nausea No vomiting No pain No rash Vital Sign Vital Signs Vital Signs Date Time Temp Pulse Resp B/P (MAP) Pulse Ox O2 Delivery O2 Flow Rate FiO2 10/05/18 08:31 78 117/63 10/05/18 08:00 Nasal Cannula 3.0 10/05/18 07:00 98.1 24 96 98.1 Physical Exam PHYSICAL EXAM GENERAL: NAD, Alert HEENT: PERRL, OC/OP NECK: Supple, no JVD, no LN LUNGS: wheeze Chest: Clean, dry HEART: S1S2, no gallop, no murmur ABD: Soft, NT, mild distention EXT: Moderate edema SYSTEM SUPPORT TECHNICIAN: Alert, oriented x 3, no focal neurologic deficit IV: ok Labs Lab Laboratory Tests Test 10/04/18 16:24 10/05/18 08:20 10/05/18 12:06 Glucose (Fingerstick) 103 mg/dL (70-99) 107 mg/dL (70-99) 130 mg/dL (70-99) Objective Assessment POD#6, s/p CABG x 4 (JONES to LAD, radial to OM, SVG to RPDA, SVG to RPL) Doing overall well. Normotensive. AFlutter, 70s. Creatinine normal. Appears slightly volume overloaded. On 2 lit NC. Having BMs. Plan Plan of Care Start lasix 40mg po daily for 2 weeks Amiodarone 400mg BID for AFib for 2 weeks, then 400mg daily until cardioversion is performed as an outpatient by cardiology OK to start Eliquis today for AFlutter A/w PT/OT eval for nursing home. If he doesn't qualify, OK to d/c home puja hernandez He will follow up with me in clinic on October 23 at 1:30pm RANJAN FONTAINE MD Oct 05, 2018 12:37
[2018-10-05] MEDS ORDERED: FUROSEMIDE 20 MG TABLET PO SCH (13:00)
[2018-10-05] MEDS ORDERED: FUROSEMIDE 40 MG TABLET. PO ONE (14:15)
[2018-10-05] MEDS: ONDANSETRON PF 4 MG/2 ML VIAL. IV PRN (14:58)
[2018-10-05 15:00] VITALS: BP 107/57
--- NOTE | 2018-10-05 17:04 | PDOC ---
PROGRESS NOTES Subjective Subjective Feeling better with improvement in edema Objective Objective Vital Signs Date Time Temp Pulse Resp B/P (MAP) Pulse Ox O2 Delivery O2 Flow Rate FiO2 10/05/18 15:00 98.0 73 22 107/57 (74) 94 Room Air 98.0 10/05/18 11:00 3.0 Intake and Output 10/05/18 07:00 Intake Total 1180 ml Output Total 1875 ml Balance -695 ml Intake Oral 1180 ml Output Urine Total 1875 ml # Voids 3 Physical Exam Abdomen: Normal bowel sounds, Soft, No tenderness, No hepatosplenomegaly, No masses Heart: Regular rate, Normal S1, Normal S2, No murmurs, Gallops Extremities: No clubbing, No cyanosis, No edema, Normal pulses, No tenderness /swelling General: Alert, Oriented X3, Cooperative, No acute distress HEENT: Atraumatic, Mucous membr. moist/pink Lungs: Clear to auscultation, Normal air movement Neuro: Normal speech, Sensation intact Psych/Mental Status: Mental status NL, Mood NL Skin: No breakdown, No significant lesion Diagnosis RENAL FAILURE: Acute (Acute tubular necrosis) Assessment Assessment 1. 3VD: S/P CABG x 4 (JONES to LAD, radial to OM, SVG to RPL, SVG to RPDA) POD#6: Progressing well. Telemetry did not show any significant arrhythmias. Continue post op care per CTS. Continue beta blockers and PT/OT 2. Post op atrial fibrillation: Tele showed atrial flutter, HR controlled. Continue amiodarone. Start Eliquis when okay from surgical standpoint, ?prior to DC and consider outpatient cardioversion in 3-4 weeks. 3. HTN: controlled 4. HLP: statins 5. DOROTA on CKD3/mild hyperkalemia: with past right nephrectomy from renal CA. Cr improved to 1.2 yesterday. Nephrology following Plan Plan of Care Problems Medical Problems: (1) 3-vessel coronary artery disease Status: Chronic (2) Chronic renal failure Status: Chronic (3) Diabetes Status: Chronic (4) HTN (hypertension) Status: Chronic (5) Morbid obesity Status: Chronic (6) Stable angina Status: Acute Comment Review of Relevant I have reviewed the following items sang (where applicable) has been applied. Labs Laboratory Tests Test 10/05/18 08:20 10/05/18 12:06 Glucose (Fingerstick) 107 mg/dL (70-99) 130 mg/dL (70-99) Medications Current Medications Famotidine (Pepcid) 20 mg BID PO Last administered on 10/05/18at 08:30; Start at 21:00 Furosemide (Lasix) 20 mg DAILY PO ; Start 10/05/18 at 13:00; Stop 10/05/18 at 13:00; Status DC Furosemide (Lasix) 40 mg 1X ONCE PO Last administered on 10/05/18at 14:13; Start 10/05/18 at 14:15; Stop 10/05/18 at 14:16; Status DC Furosemide (Lasix) 40 mg DAILY PO ; Start 10/06/18 at 09:00 Vitals/I & O Vital Sign - Last 24 Hours 10/04/18 10/04/18 10/04/18 10/04/18 19:00 20:00 20:26 20:26 Temp 99.2 99.2 Pulse 88 88 88 Resp 22 B/P (MAP) 112/65 (81) 112/65 112/65 Pulse Ox 93 O2 Delivery Nasal Cannula Nasal Cannula O2 Flow Rate 3.0 2.0 10/04/18 10/04/18 10/04/18 10/05/18 20:28 21:28 23:00 03:00 Temp 98.8 98.5 98.8 98.5 Pulse 71 70 Resp 22 18 B/P (MAP) 114/63 (80) 102/40 (60) Pulse Ox 93 93 O2 Delivery Nasal Cannula Nasal Cannula Nasal Cannula Nasal Cannula O2 Flow Rate 2.0 2.0 3.0 3.0 10/05/18 10/05/18 10/05/18 10/05/18 07:00 08:00 08:30 08:31 Temp 98.1 98.1 Pulse 78 78 78 Resp 24 B/P (MAP) 117/63 (81) 117/63 117/63 Pulse Ox 96 O2 Delivery Room Air Nasal Cannula O2 Flow Rate 3.0 10/05/18 10/05/18 11:00 15:00 Temp 98.6 98.0 98.6 98.0 Pulse 71 73 Resp 20 22 B/P (MAP) 106/55 (72) 107/57 (74) Pulse Ox 98 94 O2 Delivery Nasal Cannula Room Air O2 Flow Rate 3.0 Intake and Output 10/04/18 10/04/18 10/05/18 15:00 23:00 07:00 Intake Total 480 ml 200 ml 500 ml Output Total 975 ml 400 ml 500 ml Balance -495 ml -200 ml 0 ml SANDRA GARCIA MD Oct 05, 2018 17:04
[2018-10-05 19:20] VITALS: BP 107/63
[2018-10-05] MEDS: ATORVASTATIN CALCIUM 40 MG TABLET. PO SCH (22:02)
[2018-10-05] MEDS: ALPRAZolam 0.25 MG TABLET PO PRN (22:03)
[2018-10-05] MEDS: APIXABAN 5 MG TABLET. PO SCH (22:08)
[2018-10-05 23:15] VITALS: BP 96/53
[2018-10-06 02:40] VITALS: BP_SYST 100; BP_SYST 115; BP_DIAS 50; BP_DIAS 62
[2018-10-06 07:00] VITALS: BP 111/56
[2018-10-06] MEDS: INSULIN LISPRO 300 UNITS/3 ML INSULN.PEN. SQ SCH ×2 (08:00→12:00)
[2018-10-06] MEDS: SENNOSIDES/DOCUSATE 8.6/50MG TABLET. PO SCH (08:52)
[2018-10-06] MEDS: AMIODARONE HCL 200 MG TABLET. PO SCH (08:52)
[2018-10-06] MEDS: APIXABAN 5 MG TABLET. PO SCH (08:53)
[2018-10-06] MEDS: ASPIRIN ENTERIC COATED 325 MG TABLET.DR. PO SCH (08:53)
[2018-10-06] MEDS: FAMOTIDINE 20 MG TABLET. PO SCH (08:53)
[2018-10-06] MEDS: METOPROLOL TART IMMED RELEASE 25 MG TABLET. PO SCH (08:53)
[2018-10-06] MEDS ORDERED: FUROSEMIDE 40 MG TABLET. PO SCH (09:00)
--- NOTE | 2018-10-06 10:39 | PDOC ---
DELORES OLSON BUTTONHOLE MACHINE OPERATOR 10/06/18 1039: CARDIO Progress Notes Date and Time Date of Service 10/06/2018 Time of Evaluation 1020 Subjective Subjective: No Chest Pain, No shortness of breath, No Palpitations, Other (surgical pain controlled) Vitals Vitals Vital Signs Date Time Temp Pulse Resp B/P (MAP) Pulse Ox O2 Delivery O2 Flow Rate FiO2 10/06/18 08:54 78 10/06/18 07:00 98.0 16 111/56 (74) 92 Nasal Cannula 2.0 98.0 Weight Weight [ ] Input and Output Intake and Output Intake and Output 10/06/18 07:00 Intake Total 2160 ml Output Total 1300 ml Balance 860 ml Intake Oral 2160 ml Output Urine Total 1300 ml # Voids 5 Laboratory Labs Laboratory Tests Test 10/05/18 12:06 10/05/18 17:03 10/05/18 21:02 10/06/18 07:17 Glucose (Fingerstick) 130 mg/dL (70-99) 96 mg/dL (70-99) 110 mg/dL (70-99) 109 mg/dL (70-99) Physical Exam HEENT: Neck Supple W Full Motion Chest: Symmetric LUNGS: Other (diminished bases) Heart: S1S2, irregularly irregular (Atrial flutter) Abdomen: Soft N/T Extremities: Other (trace LE edema) Neurology: alert, oriented, follow commands Other Exams Surgical incision to midchest, LA, bilateral LE D/I and well approximated. Assessment Assessment eliquis amiodarone BB Afluttervariable conduction outpt CVN 1. 3VD: S/P CABG x 4 (JONES to LAD, radial to OM, SVG to RPL, SVG to RPDA) POD#7 2. HTN: controlled 4. HLP 5. DOROTA on CKD3/mild hyperkalemia: with past right nephrectomy from renal CA. Cr much better. Nephrology following 6. Obesity 7. PAFIB/flutter: rate controlled 8. Moderate AI Recommendations 1. Continue amiodarone, metoprolol. Eliquis for stroke prevention 2. Follow up in office as scheduled, and if still on atrial flutter then will plan for outpt CVN. 3. Secondary prevention measures. 4. Will need outpt KENDRA w/u if none done. SANDRA GARCIA MD 10/07/18 1232: CARDIO Progress Notes Assessment Assessment Patient seen and examined 10/06/18. Agree with TUCKING MACHINE OPERATOR's assessment and plan. s/p CABG, progressing well Atrial flutter rate controlled Plan outpatient cardioversion in 3-4 weeks. Continue DELORES Elliott APRN Oct 06, 2018 10:39 SANDRA GARCIA MD Oct 07, 2018 12:32
--- NOTE | 2018-10-06 10:59 | NUR ---
SS following up with discharge planning. PT/OT recommended Acute Rehabilitation. Family requested that referral be phoned and faxed to [facility], ; fax [phone]. SS awaiting acceptance decision at this time and will proceed accordingly with discharge planning.
[2018-10-06 11:00] VITALS: BP 118/66
[2018-10-06] MEDS ORDERED: ANTI-COAG MONITOR BY PHARMACY. MC PRN (11:15)
[2018-10-06] MEDS ORDERED: APIX5TAB PO (11:38)
[2018-10-06] MEDS ORDERED: AMIO200T4 PO (11:39)
[2018-10-06] MEDS ORDERED: METO25TA4 PO (11:41)
[2018-10-06] MEDS ORDERED: OXYC1TAB15 PO (11:42)
[2018-10-06] MEDS ORDERED: ASPI325T8 PO (11:42)
[2018-10-06] MEDS ORDERED: SENN-80 PO (11:43)
[2018-10-06] MEDS ORDERED: FURO40TA4 PO (11:43)
[2018-10-06] MEDS ORDERED: FAMO20TA5 PO (11:44)
[2018-10-06] MEDS ORDERED: ACET500T68 PO (11:45)
[2018-10-06 11:53] LABS: BASO % 0 % (0-3); EOS # 0.2 x10^3/uL (0.0-0.7); EOS % 2 % (0-3); HEMATOCRIT 29.8 % (39.0-53.0); HEMOGLOBIN 10.1 g/dL (13.0-17.5); LYMPH # 0.3 x10^3/uL (1.0-4.8); LYMPH % 5 % (24-48); MEAN CORPUSCULAR HEMOGLOBIN 31 pg (25-35); MEAN CORPUSCULAR HGB CONC 34 g/dL (31-37); MEAN CORPUSCULAR VOLUME 91 fL (79-100); MONO # 0.7 x10^3/uL (0.0-1.1); MONO % 9 % (0-9); NEUT # 6.1 x10^3/uL (1.8-7.7); NEUT % 84 % (31-73); PLATELET COUNT 198 x10^3/uL (140-400); RED BLOOD COUNT 3.29 x10^6/uL (4.30-5.70); RED CELL DISTRIBUTION WIDTH 14.8 % (11.5-14.5); WHITE BLOOD COUNT 7.3 x10^3/uL (4.0-11.0)
[2018-10-06] MEDS ORDERED: ALPR0.254 PO (11:53)
[2018-10-06 12:04] LABS: ALBUMIN 2.7 g/dL (3.4-5.0); ALBUMIN/GLOBULIN RATIO 0.8 (1.0-1.7); CALCIUM 8.6 mg/dL (8.5-10.1); CREATININE 1.4 mg/dL (0.7-1.3); GFR 49.4; POTASSIUM 4.1 mmol/L (3.5-5.1); TOTAL BILIRUBIN 0.6 mg/dL (0.2-1.0); TOTAL PROTEIN 6.3 g/dL (6.4-8.2)
[2018-10-06 13:03] LABS: % BANDS 16 % (0-9); % BASOS 1 % (0-3); % EOS 2 % (0-5); % LYMPHS 7 % (24-48); % MONOS 8 % (0-10); % SEGS 66 % (35-66)
[2018-10-06 13:04] LABS: PLT ESTIMATE ADEQUATE (ADEQUATE)
[2018-10-06 13:09] LABS: POLYCHROMASIA PRESENT
--- NOTE | 2018-10-06 13:39 | NUR ---
SS following up with discharge planning. Pt accepted at [facility]. SS awaiting discharge orders at this time and will proceed accordingly with discharge planning.
[2018-10-06 15:00] VITALS: BP 90/51
--- NOTE | 2018-10-06 15:21 | SNU/HH DC ---
DISCHARGE ORDERS DISCHARGE INFORMATION: DISCHARGE DATE: Oct 06, 2018 FINAL DIAGNOSIS Problems Medical Problems: (1) 3-vessel coronary artery disease Status: Chronic (2) Chronic renal failure Status: Chronic (3) Diabetes Status: Chronic (4) HTN (hypertension) Status: Chronic (5) Morbid obesity Status: Chronic (6) Stable angina Status: Acute CONDITION ON DISCHARGE: Stable CODE STATUS: Code Status: Full GROUP HOME: SNF STAY <30 DAYS: Yes HOSPICE: HOSPICE: No HOSPICE EVAL & TREAT: No LTAC: ADMIT TO LTAC: No POST DISCHARGE ORDERS: ACTIVITY ORDERS: Activity as tolerated, Bedrest today WEIGHT BEARING STATUS: No restrictions, As tolerated DIET AFTER DISCHARGE: Cardiac WOUND/INCISION CARE: Keep wound/cast CDI CHECKS AFTER DISCHARGE: CHECKS AFTER DISCHARGE: Check blood press - daily TREATMENT/EQUIPMENT ORDERS: ADAPTIVE EQUIPMENT NEEDED: None Physical Therapy For: Evalulation/Treatment Occupational Therapy For: Evaluation/Treatment DISCHARGE MEDICATIONS: Home Meds Reported Medications Alprazolam (ALPRAZOLAM) 0.25 Mg Tablet, 0.25 MG PO HS for insomnia, TAB 0 Refills 10/06/18 Acetaminophen (ACETAMINOPHEN) 500 Mg Tablet, 500 MG PO Q6HRS for pain, TAB 10/06/18 Famotidine (FAMOTIDINE) 20 Mg Tablet, 20 MG PO BID for GERD, TAB 10/06/18 Sennosides (SENNA) 8.6 Mg Tablet, 8.6 MG PO BID for constipation, TAB 10/06/18 Furosemide (FUROSEMIDE) 40 Mg Tablet, 40 MG PO DAILY for diuretic, TAB 10/06/18 Oxycodone/Apap 5-325 (PERCOCET 5-325 MG TABLET ) 1 Each Tablet, 1 TAB PO Q6HRS PRN for PAIN, TAB 0 Refills 10/06/18 Aspirin (ASPIRIN) 325 Mg Tablet, 325 MG PO DAILY for heart health, TAB 10/06/18 Metoprolol Tartrate (METOPROLOL TARTRATE) 25 Mg Tablet, 12.5 MG PO BID for blood pressure , #60 TAB 0 Refills 10/06/18 Amiodarone Hcl (AMIODARONE HCL) 200 Mg Tablet, 400 MG PO BID for heart, TAB 10/06/18 Apixaban (ELIQUIS) 5 Mg Tablet, 5 MG PO BID for A flutter, TAB 10/06/18 Atorvastatin Calcium (ATORVASTATIN CALCIUM) 40 Mg Tablet, 1 TAB PO DAILY for cholesterol, #30 TAB 5 Refills 09/18/18 Lisinopril (LISINOPRIL) 10 Mg Tablet, 1 TAB PO DAILY for HTN, #30 TAB 5 Refills 09/11/18 Zolpidem Tartrate (ZOLPIDEM TARTRATE) 10 Mg Tablet, 5 MG PO PRN QHS PRN for INSOMNIA, TAB 0 Refills 09/11/18 PAM BELLO MD Oct 06, 2018 15:21
--- NOTE | 2018-10-06 15:30 | PDOC ---
GENERAL General: seen and examined. awake and alert and still on O2. no major complaints. wants to go to snu closer to home. chest clear, heart regular, abdomen benign. edema some decreased with lasix yesterday. ok with snu from my standpoint. VITAL SIGNS/I&O Vital Signs/I&O: Vital Signs Date Time Temp Pulse Resp B/P (MAP) Pulse Ox O2 Delivery O2 Flow Rate FiO2 10/06/18 11:00 97.8 72 18 118/66 (83) 96 Nasal Cannula 2.0 97.8 I & O 10/05/18 10/05/18 10/06/18 15:00 23:00 07:00 Intake Total 940 ml 1220 ml Output Total 550 ml 750 ml Balance 390 ml 470 ml ALLERGIES Allergies: Allergies Coded Allergies Type Severity Reaction Last Updated Verified No Known Drug Allergies 08/11/14 No MEDS Medications: Current Medications Medications (Trade) Dose Ordered Sig/Claudio Route PRN Reason Start Time Stop Time Status Last Admin Dose Admin Furosemide (Lasix) 40 mg DAILY PO 10/06/18 09:00 10/06/18 08:54 Apixaban (Eliquis) 5 mg BID PO 10/05/18 21:00 10/06/18 08:54 LAB Lab: Laboratory Tests Test 10/05/18 17:03 10/05/18 21:02 10/06/18 07:17 10/06/18 11:30 Glucose (Fingerstick) 96 mg/dL (70-99) 110 mg/dL (70-99) H 109 mg/dL (70-99) H White Blood Count 7.3 x10^3/uL (4.0-11.0) Red Blood Count 3.29 x10^6/uL (4.30-5.70) L Hemoglobin 10.1 g/dL (13.0-17.5) L Hematocrit 29.8 % (39.0-53.0) L Mean Corpuscular Volume 91 fL (79-100) Mean Corpuscular Hemoglobin 31 pg (25-35) Mean Corpuscular Hemoglobin Concent 34 g/dL (31-37) Red Cell Distribution Width 14.8 % (11.5-14.5) H Platelet Count 198 x10^3/uL (140-400) Neutrophils (%) (Auto) 84 % (31-73) H Lymphocytes (%) (Auto) 5 % (24-48) L Monocytes (%) (Auto) 9 % (0-9) Eosinophils (%) (Auto) 2 % (0-3) Basophils (%) (Auto) 0 % (0-3) Neutrophils # (Auto) 6.1 x10^3/uL (1.8-7.7) Lymphocytes # (Auto) 0.3 x10^3/uL (1.0-4.8) L Monocytes # (Auto) 0.7 x10^3/uL (0.0-1.1) Eosinophils # (Auto) 0.2 x10^3/uL (0.0-0.7) Basophils # (Auto) 0.0 x10^3/uL (0.0-0.2) Segmented Neutrophils % 66 % (35-66) Band Neutrophils % 16 % (0-9) H Lymphocytes % 7 % (24-48) L Monocytes % 8 % (0-10) Eosinophils % 2 % (0-5) Basophils % 1 % (0-3) Platelet Estimate Adequate (ADEQUATE) Large Platelets Occ Polychromasia Present Sodium Level 137 mmol/L (136-145) Potassium Level 4.1 mmol/L (3.5-5.1) Chloride Level 100 mmol/L (98-107) Carbon Dioxide Level 29 mmol/L (21-32) Anion Gap 8 (6-14) Blood Urea Nitrogen 30 mg/dL (8-26) H Creatinine 1.4 mg/dL (0.7-1.3) H Estimated GFR (Cockcroft-Gault) 49.4 BUN/Creatinine Ratio 21 (6-20) H Glucose Level 126 mg/dL (70-99) H Calcium Level 8.6 mg/dL (8.5-10.1) Total Bilirubin 0.6 mg/dL (0.2-1.0) Aspartate Amino Transferase (AST) 26 U/L (15-37) Alanine Aminotransferase (ALT) 16 U/L (16-63) Alkaline Phosphatase 44 U/L (46-116) L Total Protein 6.3 g/dL (6.4-8.2) L Albumin 2.7 g/dL (3.4-5.0) L Albumin/Globulin Ratio 0.8 (1.0-1.7) L Test 8/6/19 11:56 Glucose (Fingerstick) 111 mg/dL (70-99) H Laboratory Tests 10/06/18 11:30 Laboratory Tests 10/06/18 11:30 PAM BELLO MD Oct 06, 2018 15:30
--- NOTE | 2018-10-06 15:31 | NUR ---
SS following up with discharge planning. Discharge orders received for rehabilitation. SS phoned and faxed discharge orders to [facility]. Pt will discharge today and go to [facility] in room 904 at 1630 via [facility]. Pt, pt's spouse, and pt's RN notified. Pt's RN notified to call report to [facility], .
[2018-10-06] MEDS ORDERED: POTA20TA82 PO (16:03)
--- NOTE | 2018-10-06 16:38 | NUR ---
Discharge: Teaching verbal and written. Reviewed medication, follow-up, CABG, Cardioversion, wound care, ect. Patient and daughter verbilized understanding. Report called to Rohini at [facility] [phone]. Medication changes Amiodarone 400 mg x2 weeks the change to daily Lasix 40mg daily x2 weeks then stop Potassium 20meq every other day x2 weeks
--- NOTE | 2018-10-06 17:02 | NUR ---
Patient assisted off of unit via wheelchair accompanied by [facility]
== END 2018-10-06 17:04 | DRG 235 ==
LOC: OPSVCIP 09-29 05:46 → 1 WEST ICU 09-29 14:12 → 2 NORTH 10-02 17:43
PROVIDERS: ADMIT Thoracic Surgery (Cardiothoracic Vascular Surgery); ATTEND Thoracic Surgery (Cardiothoracic Vascular Surgery)
PROC: 021109W Bypass Coronary Artery, Two Arteries from Aorta with Autologous Venous Tissue, Open Approach (ICD-10-PCS; 2018-09-29)
PROC: 02100Z9 Bypass Coronary Artery, One Artery from Left Internal Mammary, Open Approach (ICD-10-PCS; 2018-09-29)
PROC: 06BQ4ZZ Excision of Left Saphenous Vein, Percutaneous Endoscopic Approach (ICD-10-PCS; 2018-09-29)
PROC: 06BP4ZZ Excision of Right Saphenous Vein, Percutaneous Endoscopic Approach (ICD-10-PCS; 2018-09-29)
PROC: 03BC0ZZ Excision of Left Radial Artery, Open Approach (ICD-10-PCS; 2018-09-29)
PROC: 5A1221Z Performance of Cardiac Output, Continuous (ICD-10-PCS; 2018-09-29)
PROC: 02100AW Bypass Coronary Artery, One Artery from Aorta with Autologous Arterial Tissue, Open Approach (ICD-10-PCS; principal; 2018-09-29 07:30)
DX: I25.118 Atherosclerotic heart disease of native coronary artery with other forms of angina pectoris (principal); N17.1 Acute kidney failure with acute cortical necrosis; N17.0 Acute kidney failure with tubular necrosis; E87.0 Hyperosmolality and hypernatremia; N13.30 Unspecified hydronephrosis; I35.1 Nonrheumatic aortic (valve) insufficiency; I12.9 Hypertensive chronic kidney disease with stage 1 through stage 4 chronic kidney disease, or unspecified chronic kidney disease; E11.22 Type 2 diabetes mellitus with diabetic chronic kidney disease; E66.01 Morbid (severe) obesity due to excess calories; E78.5 Hyperlipidemia, unspecified; K21.9 Gastro-esophageal reflux disease without esophagitis; D17.1 Benign lipomatous neoplasm of skin and subcutaneous tissue of trunk; K57.90 Diverticulosis of intestine, part unspecified, without perforation or abscess without bleeding; M19.90 Unspecified osteoarthritis, unspecified site; N18.3 Chronic kidney disease, stage 3 (moderate); E87.5 Hyperkalemia; D64.9 Anemia, unspecified; I49.3 Ventricular premature depolarization; Z85.46 Personal history of malignant neoplasm of prostate; Z85.528 Personal history of other malignant neoplasm of kidney; Z90.5 Acquired absence of kidney; Z90.79 Acquired absence of other genital organ(s); Z95.5 Presence of coronary angioplasty implant and graft; Z68.34 Body mass index [BMI] 34.0-34.9, adult; Z85.51 Personal history of malignant neoplasm of bladder; Z79.01 Long term (current) use of anticoagulants; Z87.442 Personal history of urinary calculi
CPT/HCPCS: 36415; 36600; 71045; 74176; 76770; 80048; 80053; 80061; 82803; 82805; 82962; 83036; 83735; 84132; 85007; 85025; 85027; 85347; 85384; 85610; 85730; 86850; 86900; 86901; 86920; 88304; 93005; 94002; 94640; 94760; C1781; J0171; J0282; J0690; J0696; J1100; J1265; J1644; J1815; J1940; J2001; J2150; J2250; J2270; J2405; J2440; J2704; J3010; J3370; J3475; J3480; J3490; J7030; J7040; J7050; J7120; J7613; J7620; P9041; P9045; P9046; 97116; 97535; C1713; G0378

== ENCOUNTER → 2018-10-23 | Outpatient (CLI) | payer MEDICARE, OTHER ==
[2018-10-06 15:00] VITALS: BP 90/51
[~2018-10-23] MED LIST changes: +ACET500T68 PO; +ALPR0.254 PO; +AMIO200T4 PO; +APIX5TAB PO; +ASPI325T8 PO; +FAMO20TA5 PO; +FURO40TA4 PO; +METO25TA4 PO; +OXYC1TAB15 PO; +POTA20TA82 PO; +SENN-80 PO
--- NOTE | 2018-10-23 11:28 | RAD ---
Indication:Status post coronary artery bypass. TECHNIQUE:Portable AP chest X-ray COMPARISON: 10/02/2018 FINDINGS: CABG changes noted. Heart is moderately enlarged in size. Opacification is seen of the left lung base. There is blunting of the left costophrenic angle. No pneumothorax. Visualized bony thorax within normal limits. IMPRESSION: Consolidation in the left lung base may be secondary to atelectasis or pneumonia. Small left pleural effusion. Electronically signed by: Rafael Armstrong DO (10/23/2018 11:25 AM) [facility]
== END | disposition home or self-care (01) ==
LOC: RAD 09:22
PROVIDERS: ATTEND Thoracic Surgery (Cardiothoracic Vascular Surgery)
DX: I51.7 Cardiomegaly (principal); J90 Pleural effusion, not elsewhere classified; Z95.1 Presence of aortocoronary bypass graft
CPT/HCPCS: 71046

== ENCOUNTER 2018-10-28 08:16 | Outpatient (CLI) | payer MEDICARE, OTHER ==
[2018-10-28] VITALS (9 sets, daily range): BP systolic 114–146; BP diastolic 59–78
[~2018-10-28] VITALS: Ht 172.7 cm; Wt 97.5 kg
[2018-10-28] MEDS ORDERED: METO25TA4 PO (08:37)
[2018-10-28 08:42] LABS: BASO # 0.1 x10^3/uL (0.0-0.2); BASO % 1 % (0-3); EOS # 0.4 x10^3/uL (0.0-0.7); EOS % 10 % (0-3); HEMATOCRIT 36.4 % (39.0-53.0); HEMOGLOBIN 11.9 g/dL (13.0-17.5); LYMPH # 0.6 x10^3/uL (1.0-4.8); LYMPH % 16 % (24-48); MEAN CORPUSCULAR HEMOGLOBIN 31 pg (25-35); MEAN CORPUSCULAR HGB CONC 33 g/dL (31-37); MEAN CORPUSCULAR VOLUME 93 fL (79-100); MONO # 0.4 x10^3/uL (0.0-1.1); MONO % 9 % (0-9); NEUT # 2.6 x10^3/uL (1.8-7.7); NEUT % 64 % (31-73); PLATELET COUNT 315 x10^3/uL (140-400); RED BLOOD COUNT 3.92 x10^6/uL (4.30-5.70); RED CELL DISTRIBUTION WIDTH 18.1 % (11.5-14.5); WHITE BLOOD COUNT 4.1 x10^3/uL (4.0-11.0)
[2018-10-28 08:53] LABS: PROTHROMBIN TIME PATIENT 14.8 SEC (11.7-14.0)
--- NOTE | 2018-10-28 10:41 | RAD ---
Ultrasound Guided Thoracentesis, left side Indication: 73-year-old with large left pleural effusion, recent CABG Sedation: Local anesthesia only Sterility: The procedure was performed in its entirety using appropriate elements of sterile technique. Technique and Findings: Following informed consent, the patient was prepped and draped in the usual sterile fashion. Ultrasound interrogation of the area of interest was performed revealing the presence of a pleural fluid collection. 1% Lidocaine was used to achieve local anesthesia over the area of interest. A small dermatotomy was made and a 5F Xvh-a-tocosdhr catheter was advanced under ultrasound guidance into the pleural space [id number] cc's of thin blood-tinged fluid was removed. The catheter was then removed and hemostasis was achieved with manual compression. Impression: US thoracentesis as described.
--- NOTE | 2018-10-28 11:16 | RAD ---
Chest radiograph 10/28/2018 9:58 AM INDICATION: Status post left thoracentesis. COMPARISON: 10/23/2018 TECHNIQUE: Portable upright frontal view of the chest is provided. FINDINGS: The cardiomediastinal silhouette is similar in appearance. Median sternotomy changes are present. Small left pleural effusion status post thoracentesis. No pneumothorax. Trace right pleural effusion appears stable. Mild pulmonary vascular congestion. IMPRESSION: Status post thoracentesis with small residual left pleural effusion. No definite pneumothorax is identified. Electronically signed by: Nadia Santa MD (10/28/2018 11:13 AM) [facility]
== END 2018-10-28 11:54 | disposition home or self-care (01) ==
LOC: INTRAD 08:16
PROVIDERS: ATTEND Thoracic Surgery (Cardiothoracic Vascular Surgery)
DX: J90 Pleural effusion, not elsewhere classified (principal); Z95.1 Presence of aortocoronary bypass graft
CPT/HCPCS: 32555; 36415; 71045; 85025; 85610

== ENCOUNTER → 2018-11-06 | Outpatient (CLI) | payer MEDICARE, OTHER ==
[2018-10-28 11:30] VITALS: BP 114/62
--- NOTE | 2018-11-06 19:30 | RAD ---
CHEST PA LATERAL History: CABG. COMPARISON: 10/28/2018. FINDINGS: Postsurgical changes. Cardiomediastinal silhouette remains enlarged. Small left pleural effusion. There is increased expansion of both lungs on today's study. No definite right pleural effusion. No evidence of pneumothorax. Mild infiltrate/consolidation in the left lung base is again seen. IMPRESSION: Left pleural effusion with basilar infiltrate is again seen. Electronically signed by: Ozzy Osman MD (11/06/2018 5:52 PM) [facility]
== END | disposition home or self-care (01) ==
LOC: RAD 12:23
PROVIDERS: ATTEND Thoracic Surgery (Cardiothoracic Vascular Surgery)
DX: J90 Pleural effusion, not elsewhere classified (principal); R91.8 Other nonspecific abnormal finding of lung field; Z95.1 Presence of aortocoronary bypass graft
CPT/HCPCS: 71046

== ENCOUNTER → 2018-11-11 | Day surgery (SDC) | payer MEDICARE, OTHER ==
[2018-10-28 11:30] VITALS: BP 114/62
[~2018-11-11] MED LIST changes: +CLON1TAB12 PO; +DOCU-109 PO; +HYDROmorphone 2 MG/ML VIAL IV PRN; +IV RINGERS,LACTATED 1000ML 1,000 ML IV SCH; +LIDOCAINE 1% PF 2 ML VIAL. ID PRN; +MORPHINE SULFATE 2 MG/ML VIAL. IV PRN; +ONDANSETRON PF 4 MG/2 ML VIAL. IV PRN; +PROCHLORPERAZINE 10 MG/2 ML VIAL. IV PRN; +PROPOFOL 0 ML IV ONE; +ZOLP10TA PO; +fentaNYL PF VIAL 100 MCG/2 ML VIAL IV PRN
--- NOTE | 2018-11-11 10:38 | EKG ---
[facility] [address] [place] [address] Test Date: 2018-11-11 Test Time: 10:41:31 Pat Name: RENALDO HANLEY Department: Room: Gender: M Flooring Professional: LADONNA : 1945 Requested By: SANDRA GARCIA Order Number: [id number] Reading MD: Measurements Intervals [place] Rate: 60 P: 0 NH: 174 QRS: -13 QRSD: 84 T: 1 QT: 510 QTc: 510 Interpretive Statements SINUS RHYTHM INTERPOLATED VENTRICULAR PREMATURE COMPLEX(ES) LEFT ATRIAL ABNORMALITY LEFTWARD AXIS R-S TRANSITION ZONE IN V LEADS DISPLACED TO THE LEFT QRS(T) CONTOUR ABNORMALITY CONSIDER ANTEROLATERAL MYOCARDIAL DAMAGE CONSISTENT WITH INFERIOR INFARCT AGE UNDETERMINED T ABNORMALITY IN ANTERIOR LEADS ABNORMAL ECG RI6.01 Compared to ECG 09/29/2018 15:58:06 Atrial abnormality now present Left-axis deviation now present Myocardial infarct finding now present T-wave abnormality now present Ventricular-paced complex(es) or rhythm no longer present AV dual-paced complex(es) or rhythm no longer present
== END | disposition home or self-care (01) ==
LOC: SURG 10:12
PROVIDERS: ATTEND Internal Medicine Cardiovascular Disease
DX: R94.31 Abnormal electrocardiogram [ECG] [EKG] (principal); I21.9 Acute myocardial infarction, unspecified; I48.91 Unspecified atrial fibrillation; Z95.1 Presence of aortocoronary bypass graft
CPT/HCPCS: 93005; J2704

== ENCOUNTER 2018-11-16 07:38 | Outpatient (CLI) | payer MEDICARE, OTHER ==
[2018-11-16] VITALS (8 sets, daily range): BP systolic 119–142; BP diastolic 63–72
[~2018-11-16] VITALS: Ht 172.7 cm; Wt 94.8 kg
[~2018-11-16 07:38] MED LIST changes: -HYDROmorphone 2 MG/ML VIAL IV PRN; -IV RINGERS,LACTATED 1000ML 1,000 ML IV SCH; -LIDOCAINE 1% PF 2 ML VIAL. ID PRN; -MORPHINE SULFATE 2 MG/ML VIAL. IV PRN; -ONDANSETRON PF 4 MG/2 ML VIAL. IV PRN; -PROCHLORPERAZINE 10 MG/2 ML VIAL. IV PRN; -PROPOFOL 0 ML IV ONE; -fentaNYL PF VIAL 100 MCG/2 ML VIAL IV PRN
--- NOTE | 2018-11-16 10:17 | RAD ---
Ultrasound-guided right-sided thoracentesis 11/16/2018 8:13 AM Indication: LEFT PLEURAL EFFUSION Procedure: Informed consent was obtained. A timeout procedure was performed. Sonographic evaluation of the left chest was performed demonstrating moderate pleural effusion. The left posterior chest was prepped and draped in sterile fashion. 1% lidocaine without epinephrine was administered for local anesthesia. Real-time ultrasonographic guidance was used in passing a 5 [employer] catheter into the left pleural space 350 cc of serosanguineous pleural fluid was removed. Samples of fluid were sent to the lab for further evaluation per ordering physician request. The catheter was removed and pressure held to achieve hemostasis. A sterile dressing was applied. No immediate complications were identified. The patient tolerated the procedure well. Impression: Left sided ultrasound-guided thoracentesis
--- NOTE | 2018-11-16 11:02 | RAD ---
EXAM: AP View of the chest DATE: 11/16/2018 10:15 AM INDICATION: Postthoracentesis-left side COMPARISON: No Prior FINDINGS/ IMPRESSION: Interval decrease in left pleural effusion. No definite pneumothorax. Airspace opacities bilateral lung bases likely atelectasis. No lobar consolidation. Cardiomediastinal silhouette is grossly stable. Aorta is tortuous. Changes of cardiothoracic surgery. Electronically signed by: Anthony Hogan MD (11/16/2018 10:58 AM) [facility]
--- NOTE | 2018-11-16 11:20 | NUR ---
pt A&O x 3. denies pain or SOB, left chest site is clean and dry. cxr was ok. d/c instructions given to pt and questions answered. pt ambulated out to vehicle accompanied by staff where his was to drive him home.
== END 2018-11-16 11:23 | disposition home or self-care (01) ==
LOC: INTRAD 07:38
PROVIDERS: ATTEND Thoracic Surgery (Cardiothoracic Vascular Surgery)
DX: J90 Pleural effusion, not elsewhere classified (principal)
CPT/HCPCS: 32555; 71045

== ENCOUNTER → 2020-04-24 | Outpatient (CLI) | payer MEDICARE, OTHER ==
[2018-11-16 10:37] VITALS: BP 136/70
[~2020-04-24] MED LIST changes: -AMIO200T4 PO; +AMIO200T6 PO; +LISI10TA16 PO; -LISI10TA2 PO; +POTA20TA4 PO; -POTA20TA82 PO; +SENN-182 PO; -SENN-80 PO
--- NOTE | 2020-04-24 10:58 | CARD ---
MR#: [id number] Date of Study: 04/24/2020 Ordering Physician: SANDRA GARCIA, Referring Physician: SANDRA GARCIA, Tech: Jeannie Vaughan RDCS APPROVED REPORT EXAM: Two-dimensional and M-mode echocardiogram with Doppler and color Doppler. Other Information Quality : Good INDICATION Cardiac Disease: CAD 2D DIMENSIONS RVDd3.5 (2.9-3.5cm)Left Atrium(2D)5.3 (1.6-4.0cm) IVSd1.1 (0.7-1.1cm)Aortic Root(2D)3.5 (2.0-3.7cm) LVDd5.6 (3.9-5.9cm)LVOT Diameter2.2 (1.8-2.4cm) PWd1.1 (0.7-1.1cm)LVDs4.0 (2.5-4.0cm) FS (%) 28.8 %SV83.6 ml LVEF(%)54.8 (>50%) M-Mode DIMENSIONS Aortic Cusp Exc2.13 (1.5-2.0cm) Aortic Valve AoV Peak Oscar.163.8cm/sAoV VTI36.8cm AO Peak GR.10.7mmHgLVOT Peak Oscar.107.1cm/s LVOT VTI 29.20cmAO Mean GR.5mmHg MARY KAY (VMAX)2.30ei9DED (VTI)3.15cm2 AI P 1/2 Ilbj928lr Mitral Valve MV E Lwabutam41.3cm/sMV DECEL GCBS805ok MV A Oqiaqkmb720.8cm/sMV BJV29zm E/A Ratio0.8MVA (PHT)4.72cm2 TDI E/Lateral E'9.6E/Medial E'18.4 Tricuspid Valve TR P. Yttysgkk971sj/sRAP ZREJYSHM3ajPb TR Peak Gr.82dbLhYQJQ03xrHs Pulmonary Vein S1 Lwgediih97.2cm/sD2 Awektepc97.8cm/s LEFT VENTRICLE The left ventricle is normal size. There is normal left ventricular wall thickness. Left ventricle sy stolic function is mildly reduced. The Ejection Fraction is 50% Septal motion consistent with post-op erative state. Mild global hypokinesis. Tissue Doppler imaging reveals moderate left ventricular leary tolic dysfunction. RIGHT VENTRICLE The right ventricle is normal size. The right ventricular systolic function is normal. ATRIA The left atrium is moderately dilated. The right atrium is mildly dilated. The interatrial septum is intact with no evidence for an atrial septal defect or patent foramen ovale as noted on 2-D or Dopple r imaging. AORTIC VALVE The aortic valve is mildly thickened but opens well. Doppler and Color Flow revealed moderate aortic regurgitation. There is no significant aortic valvular stenosis. MITRAL VALVE The mitral valve is mildly thickened. Mitral annular calcification is mild. There is no evidence of m itral valve prolapse. There is no mitral valve stenosis. Doppler and Color-flow revealed mild mitral regurgitation. TRICUSPID VALVE The tricuspid valve is normal in structure and function. Doppler and Color Flow revealed trace to mil d tricuspid regurgitation. There is mild pulmonary hypertension. The PA pressure was estimated at 36 mmHg. There is no tricuspid valve stenosis. PULMONIC VALVE The pulmonic valve is not well visualized. Doppler and Color Flow revealed mild pulmonic valvular reg urgitation. There is no pulmonic valvular stenosis. GREAT VESSELS The aortic root is normal in size. The ascending aorta is moderately dilated at 3.8 cm. The IVC is no rmal in size and collapses >50% with inspiration. PERICARDIAL EFFUSION There is no evidence of significant pericardial effusion. Critical Notification Critical Value: No <Conclusion> Left ventricle systolic function is mildly reduced. The Ejection Fraction is 50% Septal motion consistent with post-operative state. Mild global hypokinesis. Doppler and Color Flow revealed moderate aortic regurgitation. PHT 467 with trivial diastolic flow re versal in the aortic arch. The ascending aorta is moderately dilated at 3.8 cm. Signed by : Francisco Burger, Electronically Approved : 04/24/2020 10:58:24
== END ==
LOC: ECHO 09:11
PROVIDERS: ATTEND Internal Medicine Cardiovascular Disease
DX: I08.8 Other rheumatic multiple valve diseases (principal); I25.10 Atherosclerotic heart disease of native coronary artery without angina pectoris
CPT/HCPCS: 93306

== ENCOUNTER → 2020-10-13 | Outpatient (CLI) | payer MEDICARE, OTHER ==
[2018-11-16 10:37] VITALS: BP 136/70
--- NOTE | 2020-10-13 15:00 | RAD ---
Soft tissue ultrasound of the right cheek for hard lump in the right cheek. FINDINGS: Real-time grayscale and color Doppler imaging of the area of interest is performed. There i s a 9 mm ovoid shadowing hyperechoic abnormality with a hypoechoic well-demarcated capsule and may re present a small sialolith, or less likely small calcified lymph node or other benign soft tissue lesi on. This has a benign appearance. Precise anatomic correlation is limited with this modality. If clin ically warranted, MRI of the face and neck with contrast could be of benefit. IMPRESSION: 1. 9 mm densely calcified abnormality in the area of interest, most likely a sialolith, or perhaps a benign calcified lymph node or soft tissue lesion. Benign-appearing is suspected, however if there is clinical concern for more detailed characterization, further evaluation with MRI of the face and nec k with contrast is recommended Electronically signed by: Florian Case MD (10/13/2020 2:58 PM) [id number]
== END ==
LOC: US 13:56
PROVIDERS: ATTEND Family Medicine
DX: R22.0 Localized swelling, mass and lump, head (principal); Z68.27 Body mass index [BMI] 27.0-27.9, adult
CPT/HCPCS: 76881

== ENCOUNTER → 2021-03-05 | Outpatient (CLI) | payer MEDICARE, OTHER ==
[2018-11-16 10:37] VITALS: BP 136/70
[~2021-03-05] MED LIST changes: +AMIO200T53 PO; -AMIO200T6 PO; +DICY20TA PO; -DICY20TA3 PO; +REGADENOSON 0.4 MG/5 ML DISP.SYRIN. IV ONE
--- NOTE | 2021-03-05 13:14 | RAD ---
MR#: [id number] Date of Study: 03/05/2021 Ordering Physician: SANDRA GARCIA, Referring Physician: CHIQUITA SYKES Tech: NATALY Bashir ARRT (R) (N) APPROVED REPORT Test Type: Pharmacological Stress Nurse/Tech: Cipriano Jett RN Test Indications: CAD Cardiac History: HTN, CABG, See EMR. Medications: See EMR. Medical History: See EMR. Resting ECG: SB Resting Heart Rate: 43 bpm Resting Blood Pressure: 154/57mmHg Pretest Chest Pain: No chest pain Nurse/Tech Notes Lungs CTA, Heart tones regular. Consent: The procedure was explained to the patient in lay terms. Informed consent was witnessed. Charlie eout was entered into [employer]. History and Stress Test performed by RT Braydon (R) (N) Pharm. Details Pharmacologic stress testing was performed using 0.4mg per 5ml of regadenoson given intravenously ove r 7-10 seconds. Stress Symptoms No chest pain or symptoms. POST EXERCISE Reason for Termination: Infusion complete Max HR: 62 bpm Max Blood Pressure: 154/57mmHg Blood Pressure response to exercise: Normal blood pressure response during stress. Heart Rate response to exercise: WNL Chest Pain: No. Arrhythmia: No. ST Change: No. INTERPRETATION Stress EKG Conclusion: Baseline EKG showed sinus rhythm. No ischemic changes at peak stress. No arr hythmias. Imaging Protocol IMAGE PROTOCOL: Rest Tc-99m/stress Tc-99m 1 day Rest: Stress: Viability: Radiopharm.Tc99m CcqtiifsgNa01x Sestamibi Wvgt91eXo 31mCi Inj-Img Rtlv88ytm. 60min. Rest Admin Site:IV - Right AntecubitalAdministrator:NATALY Bashir ARRT (R)(N) Stress Admin Site: IV - Right AntecubitalAdministrator: RT Sara BrysonR)(N) STRESS DATA End Diast. Vol.171.0mlAv. Heart Rate55.0bpm End Syst. Vol.58.0mlCO Index BSA0.0L/min Myocardial Sreo801.0gEject. Ccmpiflc45.0% Stress Rates Pk. Fill Rate2.00EDV/secLVtime Pk. Fill 151.77msec Pk. Empty Rate3.05ESV/secLVtime Pk. Wozqp992.58msec /3 Pk. Fill1.40EDV/sec Stress Scores Regional WT0.00Summed WT2.00 Regional WM0.00Summed WM11.00 Study quality was good. Left Ventricular size was Normal at Rest and Stress. Lung uptake was . Left Ventricular ejection fraction is 63%. The rest and stress images show normal perfusion, normal contraction and thickening. LV Perf. Quant 17 Seg. SSS3.00 17 Seg. SRS0.00 17 Seg. SDS3.00 Stress Defect Extent (% LAD)0.00Rest Defect Extent (% LAD)0.00Rev. Defect Extent (% LAD)0.00 Stress Defect Extent (% LCX) 41.30Rest Defect Extent (% LCX)0.00Rev. Defect Extent (% LCX)17.50 Stress Defect Extent (% RCA)0.00Rest Defect Extent (% RCA)0.00Rev. Defect Extent (% RCA)0.00 Stress Defect Extent (% JOSE A)7.20Rest Defect Extent (% JOSE A)0.00Rev. Defect Extent (% JOSE A)3.00 Conclusion 1. Regadenoson cardioisotope stress test did not show any evidence of ischemia or infarct. 2. Normal left ventricular systolic function with ejection fraction calculated at 63%. 3. Low risk for cardiac events. Signed by : Sandra Garcia, Electronically Approved : 03/05/2021 13:13:50
== END ==
LOC: NM 09:12
PROVIDERS: ATTEND Internal Medicine Cardiovascular Disease
DX: I25.10 Atherosclerotic heart disease of native coronary artery without angina pectoris (principal)
CPT/HCPCS: 78452; 93017; A9500; J2785

== ENCOUNTER → 2021-03-15 | Outpatient (CLI) | payer MEDICARE, OTHER ==
[2018-11-16 10:37] VITALS: BP 136/70
[~2021-03-15] MED LIST changes: -REGADENOSON 0.4 MG/5 ML DISP.SYRIN. IV ONE
== END ==
LOC: LAB 15:18
PROVIDERS: ATTEND Urology
DX: C61 Malignant neoplasm of prostate (principal)
CPT/HCPCS: 84153; 84154; 84520